=== PATIENT | female | born 1945 | race Caucasian/White ===

== ENCOUNTER 2020-01-27 08:32 | Outpatient (REF) | payer MEDICARE, SELFPAY ==
[2020-01-27 11:20] LABS: MANUAL DIFF FLAG NO
[2020-01-27 11:31] LABS: Basophils Percent Auto 0.4 % (0-2); Eosinophils Absolute Auto 0.2 X10*3/uL (0.0-0.4); Eosinophils Percent Auto 2.4 % (0-4); Hematocrit 48.4 % (37-47); Hemoglobin 15.9 g/dl (12.0-16.0); Imm Gran Abs Auto 0.03 X10*3/uL (0.00-0.03); Imm Gran Pct Auto 0.4 % (0.0-0.4); Lymphocytes Absolute Auto 1.9 X10*3/uL (1.2-4.9); Mean Corpuscular HGB Conc 32.9 g/dl (31.0-35.0); Mean Corpuscular Hemoglobin 29.2 pg (27.0-33.0); Mean Platelet Volume 11.3 fL (9.4-12.3); Monocytes Absolute Auto 0.7 X10*3/uL (0.1-1.2); Monocytes Percent Auto 7.8 % (2-11); Neutrophils Absolute Auto 5.5 X10*3/uL (2.0-8.3); Platelet Count 231 X10*3/uL (160-400); Red Blood Count 5.44 X10*6/uL (4.20-5.50); Red Cell Distribution Width 13.5 % (11.0-16.0); White Blood Count 8.4 X10*3/uL (4.8-10.8)
[2020-01-27 11:54] LABS: Creatinine Urine 105.43 mg/dL; Microalbum/Creatinine Ratio Ur 38.8 ug/mg cr
[2020-01-27 12:13] LABS: Alanine Aminotransferase 15 U/L (0-31); Albumin Level 4.5 g/dL (3.5-5.0); Alkaline Phosphatase 146 U/L (39-117); Anion Gap 17 (12-20); Aspartate Amino Transferase 13 U/L (5-31); Bilirubin Total 1.1 mg/dL (0.0-1.0); Blood Urea Nitrogen 15 mg/dL (9-16); Calcium 8.9 mg/dL (8.4-10.2); Carbon Dioxide 24 mmol/L (22-29); Chloride 104 mmol/L (96-108); Cholesterol 164 mg/dL; Estimated Glomerular Filt Rate > 60; Glucose Fasting 131 mg/dL (60-99); HDL Cholesterol 47 mg/dL; LDL Cholesterol Calculated 89 mg/dl; Potassium 3.4 mmol/l (3.3-5.1); Sodium 142 mmol/L (135-145); Total Protein 7.1 g/dL (6.5-8.0); Triglycerides 142 mg/dL
[2020-01-27 12:17] LABS: T4 Thyroxine 7.8 ug/dL (4.5-12.0); Thyroid Stimulating Hormone 2.66 uIU/mL (0.32-4.0); Vitamin D 25-OH Total 41.7 ng/mL (>30)
[2020-01-27 12:33] LABS: Folate 13.7 ng/mL (> or = 4.0); Vitamin B12 1062 pg/mL (200-900)
== END 2020-01-27 08:33 | disposition home or self-care (01) ==
LOC: HO.HMGCLDS 08:32
PROVIDERS: PCP Internal Medicine; Visit Provider Internal Medicine
DX: E11.65 Type 2 diabetes mellitus with hyperglycemia (principal); I10 Essential (primary) hypertension; E78.00 Pure hypercholesterolemia, unspecified; G47.33 Obstructive sleep apnea (adult) (pediatric); I48.91 Unspecified atrial fibrillation
CPT/HCPCS: 36415; 80053; 80061; 82043; 82306; 82607; 82746; 84436; 84443; 85025

== ENCOUNTER 2020-07-06 07:46 | Outpatient (REF) | payer MEDICARE, SELFPAY ==
[2020-07-06 11:52] LABS: Estimated Average Glucose 126 mg/dL
[2020-07-06 12:39] LABS: Alanine Aminotransferase 14 U/L (0-31); Albumin Level 4.6 g/dL (3.5-5.0); Alkaline Phosphatase 139 U/L (39-117); Anion Gap 16 (12-20); Aspartate Amino Transferase 13 U/L (5-31); Bilirubin Total 0.8 mg/dL (0.0-1.0); Blood Urea Nitrogen 17 mg/dL (9-16); Calcium 9.5 mg/dL (8.4-10.2); Carbon Dioxide 26 mmol/L (22-29); Chloride 106 mmol/L (96-108); Cholesterol 162 mg/dL; Estimated Glomerular Filt Rate > 60; Glucose Random 124 mg/dL (60-115); HDL Cholesterol 46 mg/dL; LDL Cholesterol Calculated 85 mg/dl; Potassium 3.7 mmol/L (3.3-5.1); Sodium 144 mmol/L (135-145); Total Protein 7.1 g/dL (6.5-8.0); Triglycerides 156 mg/dL
== END 2020-07-06 07:47 | disposition home or self-care (01) ==
LOC: HO.HMGCLDS 07:46
PROVIDERS: PCP Internal Medicine; Visit Provider Internal Medicine
DX: E11.65 Type 2 diabetes mellitus with hyperglycemia (principal); E78.00 Pure hypercholesterolemia, unspecified
CPT/HCPCS: 36415; 80053; 80061; 83036

== ENCOUNTER 2020-11-14 11:56 | Outpatient (REF) | payer MEDICARE, SELFPAY ==
--- NOTE | ~2020-11-14 | MM_ITS ---
EXAMINATION: BONE DENSITOMETRY CLINICAL INDICATION: Menopause. COMPARISON: Previous BD dated 09/06/2015 and baseline BD dated 10/08/2007. TECHNIQUE: Using a [employer] DXA System (software version: 13.1) manufactured by [employer], dual-energy x-ray absorptiometry was performed of the lumbar spine and left hip. The images are of good technical quality. Summary results are attached. FINDINGS: AP SPINE L1-L4 (excluding L3): The data of L1-L4 has been changed to exclude the L3 vertebral body, because degenerative change at this level may cause overestimation of lumbar spine density. Current: BMD 1.469 g/cm2, Z-score 3.6, T-score 2.5, normal, 5.4% increase from previous, 3.5% increase from baseline (<5% change is not significant). Prior: BMD 1.394 g/cm2. Baseline: BMD 1.420 g/cm2. LEFT FEMUR, NECK: Current: BMD 0.905 g/cm2, Z-score 0.6, T-score -1.0, normal. Prior: BMD 0.985 g/cm2. Baseline: BMD 0.984 g/cm2. LEFT FEMUR, TOTAL: Current: BMD 1.088 g/cm2, Z-score 2.0, T-score 0.6, normal, 1.6% decrease from previous, 6.6% decrease from baseline (<5% change is not significant). Prior: BMD 1.106 g/cm2. Baseline: BMD 1.165 g/cm2. IDENTIFIED RISK FACTORS: Menopause, history of fracture (adult). HISTORY OF FRACTURE: Ankle. MEDICATIONS: Vitamin D. MM/XR DEXA axial skeleton IMPRESSION: 1. DIAGNOSIS: Normal bone density based on the lowest T-score value of -1.0 in the femoral neck applying World Health Organization criteria. 2. 10-YEAR FRACTURE RISK PREDICTION, FRAX: According to the guidelines, FRAX calculation should only be performed on patients in the osteopenia bone density category. Therefore, FRAX was not performed on this patient. 3. Treatment Recommendations: NOF guidelines recommend consideration for treatment in postmenopausal women and men age 50 and older presenting with the following: -A hip or vertebral (clinical or morphometric) fracture. -T-score less than or equal to -2.5 at the femoral neck or spine after appropriate evaluation to exclude secondary causes. -Low bone mass at the hip or spine and a 10-year fracture probability by FRAX of greater than or equal to 3% for hip fracture or greater than or equal to 20% for major osteoporotic fracture based on the [place] adapted WHO algorithm. 4. Other Recommendations: All treatment decisions require clinical judgment and consideration of individual patient factors, including patient preferences, comorbidities, previous drug use, risk factors not captured in the FRAX model (e.g. frailty, falls, vitamin D deficiency, increased bone turnover, interval significant decline in bone density) and possible under or overestimation of fracture risk by FRAX. FUTURE SCAN RECOMMENDATION: People with diagnosed cases of osteoporosis or at high risk for fracture should have regular bone mineral density tests. For patients eligible for Medicare, routine testing is allowed once every 2 years. The testing frequency can be increased to one year for patients who have rapidly progressing disease, those who are receiving or discontinuing medical therapy to restore bone mass, or have additional risk factors.
--- NOTE | ~2020-11-14 | MM_ITS ---
EXAMINATION: MM SCREENING DIGITAL BREAST TOMOSYNTHESIS, BILATERAL CLINICAL INFORMATION: Screening. Asymptomatic. The lifetime risk of breast cancer based on the Tyrer-Cuzick Model is 4%. COMPARISON: Mammography: 11/09/2019, 11/03/2018, 10/27/2017 TECHNIQUE: Digital breast tomosynthesis is performed in both the craniocaudal and mediolateral oblique views along with computer-aided detection (CAD). Synthesized 2D images are generated from the tomosynthesis. FINDINGS: There are scattered areas of fibroglandular density (ACR BI-RADS breast composition Category b). There is fine fibronodular parenchymal pattern similar to prior exams. No developing density or interval mass or architectural abnormality. Again, there are bilateral round and coarse calcifications, some stable groups upper outer left similar to prior exam. There is biopsy clip marker again noted right breast mid 12:30 o'clock position. The axilla and skin contours are unremarkable. No significant changes. MM/MM tomosynthesis screening BI IMPRESSION: There are no significant changes from prior study. ASSESSMENT: BI-RADS 2: Benign RECOMMENDATION: Routine annual mammography screening. This patient's information was entered into a reminder system with a target due date for their next mammogram.
== END 2020-11-14 11:57 | disposition home or self-care (01) ==
LOC: HO.MAMMO 11:56
PROVIDERS: Visit Provider Internal Medicine
DX: Z12.31 Encounter for screening mammogram for malignant neoplasm of breast (principal); Z13.820 Encounter for screening for osteoporosis; Z78.0 Asymptomatic menopausal state; Z87.81 Personal history of (healed) traumatic fracture; Z79.899 Other long term (current) drug therapy
CPT/HCPCS: 77063; 77067; 77080

== ENCOUNTER 2021-06-21 09:01 | Outpatient (REF) | payer MEDICARE, SELFPAY ==
[2021-06-21 11:08] LABS: MANUAL DIFF FLAG NO
[2021-06-21 11:18] LABS: Basophils Percent Auto 0.4 % (0-2); Eosinophils Absolute Auto 0.3 X10*3/uL (0.0-0.4); Eosinophils Percent Auto 3.8 % (0-4); Hematocrit 46.6 % (37.0-47.0); Hemoglobin 15.4 g/dl (12.0-16.0); Imm Gran Abs Auto 0.02 X10*3/uL (0.00-0.03); Imm Gran Pct Auto 0.2 % (0.0-0.4); Lymphocytes Absolute Auto 2.1 X10*3/uL (1.2-4.9); Lymphocytes Percent Auto 24.4 % (20-40); Mean Corpuscular Hemoglobin 29.5 pg (27.0-33.0); Mean Corpuscular Volume 89.3 fL (80.0-98.0); Mean Platelet Volume 11.4 fL (9.4-12.3); Monocytes Absolute Auto 0.7 X10*3/uL (0.1-1.2); Neutrophils Absolute Auto 5.3 x10*3/uL (2.0-8.3); Neutrophils Percent Auto 63.2 % (45-73); Platelet Count 218 X10*3/uL (160-400); Red Blood Count 5.22 X10*6/uL (4.20-5.50); Red Cell Distribution Width 13.3 % (11.0-16.0); White Blood Count 8.5 X10*3/uL (4.8-10.8)
[2021-06-21 11:31] LABS: Alanine Aminotransferase 13 U/L (0-31); Albumin Level 4.3 g/dL (3.5-5.0); Alkaline Phosphatase 141 U/L (39-117); Anion Gap 13 (12-20); Aspartate Amino Transferase 13 U/L (5-31); Blood Urea Nitrogen 16 mg/dL (9-16); Calcium 9.2 mg/dL (8.4-10.2); Carbon Dioxide 26 mmol/L (22-29); Chloride 108 mmol/L (96-108); Cholesterol 145 mg/dL; Estimated Glomerular Filt Rate > 60; Glucose Random 129 mg/dL (60-115); HDL Cholesterol 47 mg/dL; LDL Cholesterol Calculated 81 mg/dl; Potassium 3.6 mmol/L (3.3-5.1); Sodium 143 mmol/L (135-145); Total Protein 6.8 g/dL (6.5-8.0); Triglycerides 88 mg/dL
[2021-06-21 11:32] LABS: Estimated Average Glucose 126 mg/dL
[2021-06-21 11:56] LABS: B Type Natriuretic Peptide 168 pg/mL (<100)
[2021-06-21 11:58] LABS: Free T4 (Free Thyroxine) 1.02 ng/dL (0.71-1.85); Thyroid Stimulating Hormone 2.48 uIU/mL (0.32-4.0); Vitamin D 25-OH Total 43.2 ng/mL (>30)
[2021-06-21 11:59] LABS: Folate 15.1 ng/mL (> or = 4.0); Vitamin B12 996 pg/mL (200-900)
[2021-06-21 12:15] LABS: Creatinine Urine 65.55 mg/dL
== END 2021-06-21 09:02 | disposition home or self-care (01) ==
LOC: HO.HMGCLDS 09:01
PROVIDERS: PCP Internal Medicine; Visit Provider Internal Medicine
DX: I10 Essential (primary) hypertension (principal); I48.0 Paroxysmal atrial fibrillation; E11.65 Type 2 diabetes mellitus with hyperglycemia; E78.00 Pure hypercholesterolemia, unspecified
CPT/HCPCS: 36415; 80053; 80061; 82043; 82306; 82607; 82746; 83036; 83880; 84439; 84443; 85025

== ENCOUNTER 2021-10-11 08:56 | Outpatient (REF) | payer MEDICARE, SELFPAY ==
[2021-10-11 12:24] LABS: Alanine Aminotransferase 15 U/L (0-31); Albumin Level 4.5 g/dL (3.5-5.0); Alkaline Phosphatase 148 U/L (39-117); Anion Gap 15 (12-20); Aspartate Amino Transferase 14 U/L (5-31); Bilirubin Total 1.1 mg/dL (0.0-1.0); Blood Urea Nitrogen 15 mg/dL (9-16); Calcium 9.4 mg/dL (8.4-10.2); Carbon Dioxide 26 mmol/L (22-29); Chloride 106 mmol/L (96-108); Cholesterol 141 mg/dL; Estimated Glomerular Filt Rate > 60; Glucose Random 134 mg/dL (60-115); HDL Cholesterol 47 mg/dL; LDL Cholesterol Calculated 76 mg/dl; Potassium 3.7 mmol/L (3.3-5.1); Sodium 143 mmol/L (135-145); Triglycerides 94 mg/dL
== END 2021-10-11 08:57 | disposition home or self-care (01) ==
LOC: HO.HMGCLDS 08:56
PROVIDERS: PCP Internal Medicine; Visit Provider Internal Medicine
DX: E78.00 Pure hypercholesterolemia, unspecified (principal)
CPT/HCPCS: 36415; 80053; 80061

== ENCOUNTER 2021-11-20 11:40 | Outpatient (REF) | payer MEDICARE, SELFPAY ==
--- NOTE | ~2021-11-20 | MM_ITS ---
EXAMINATION: MM SCREENING DIGITAL BREAST TOMOSYNTHESIS, BILATERAL CLINICAL INFORMATION: Screening. Asymptomatic. The lifetime risk of breast cancer based on the Tyrer-Cuzick Model is 4%. COMPARISON: Mammography: 11/14/2020, 11/27/2019, 11/03/2018 TECHNIQUE: Digital breast tomosynthesis is performed in both the craniocaudal and mediolateral oblique views along with computer-aided detection (CAD). Synthesized 2D images are generated from the tomosynthesis. FINDINGS: There are scattered areas of fibroglandular density (ACR BI-RADS breast composition Category b). There is fine fibronodular parenchymal pattern. No developing density or interval mass or architectural abnormality. The axilla and skin contours are unremarkable. Right breast has scattered isolated and small grouped stable calcifications. Again, there is biopsy clip marker central 12:30 o'clock position mid depth. Left breast has grouped coarse calcifications mid 12:30 position and mid upper outer quadrant, increased from prior exams. Patient will be recalled in order to fully characterize with additional magnification views. MM/MM tomosynthesis screening BI IMPRESSION: Left: -Increased calcifications mid 12:30 o'clock and mid upper outer quadrant. Right: -No mammographic evidence of malignancy. ASSESSMENT: BI-RADS 0: Incomplete - Need Additional Imaging Evaluation RECOMMENDATION: 1. Additional views of the left breast (magnification CC, magnification ML). 2. Radiology department staff will contact the patient for additional imaging. This patient's information was entered into a reminder system with a target due date for their next mammogram.
== END 2021-11-20 11:41 | disposition home or self-care (01) ==
LOC: HO.MAMMO 11:40
PROVIDERS: PCP Internal Medicine; Visit Provider Internal Medicine
DX: Z12.31 Encounter for screening mammogram for malignant neoplasm of breast (principal)
CPT/HCPCS: 77063; 77067

== ENCOUNTER 2021-11-28 08:38 | Outpatient (REF) | payer MEDICARE, SELFPAY ==
--- NOTE | ~2021-11-28 | MM_ITS ---
EXAMINATION: MM DIAGNOSTIC DIGITAL MAMMOGRAPHY, LEFT CLINICAL INFORMATION: Recall from screening for calcifications mid 12:30 o'clock and mid upper outer quadrant left breast. COMPARISON: Mammography: 11/20/2021, 11/14/2020, 11/09/2019, 11/03/2018. TECHNIQUE: Digital mammography is performed in the following views: Magnification CC x2, magnification ML. FINDINGS: There are scattered areas of fibroglandular density (ACR BI-RADS breast composition Category b). The additional magnification views demonstrate similar appearing groups of relatively coarse calcifications in the upper outer left breast. These may represent fibroadenomatous calcifications. Management plan is for short interval follow-up in 6 months to include magnification views. Results are discussed with the patient at time of visit. MM/MM added views LT IMPRESSION: Several groups of relatively coarse calcifications upper outer left breast, possibly benign fibroadenomatous calcifications. ASSESSMENT: BI-RADS 3: Probably Benign RECOMMENDATION: Diagnostic left mammography in 6 months. This patient's information was entered into a reminder system with a target due date for their next mammogram.
== END 2021-11-28 08:39 | disposition home or self-care (01) ==
LOC: HO.MAMMO 08:38
PROVIDERS: PCP Internal Medicine; Visit Provider Internal Medicine
DX: R92.1 Mammographic calcification found on diagnostic imaging of breast (principal)
CPT/HCPCS: 77065

== ENCOUNTER 2022-02-14 11:32 | Emergency (ER) | payer MEDICARE, SELFPAY ==
--- NOTE | ~2022-02-14 | US_ITS ---
EXAMINATION: US PELVIS CLINICAL INFORMATION: 76-year-old female with history of vaginal bleeding with clots. COMPARISON: None TECHNIQUE: Ultrasound of the pelvis is performed using both transabdominal and transvaginal transducers along with Doppler. Transvaginal imaging is performed due to inadequate visualization transabdominally. UTERUS AND CERVIX The anteflexed, anteverted uterus measures approximately 9.6 x 5 x 6.6 cm ([id number] x AP x transverse dimension). There is extensive cystic change along the cervix, suspicious for endocervical hyperplasia. Largest nabothian cyst of the cervix measures up to 1.2 cm. The endometrium is diffusely heterogeneous, abnormally thickened. The endometrium measures up to approximately 3 cm AP. On the transabdominal images, there appear to be a intramural leiomyoma of the left uterine body, estimated size of approximately 3.5 x 2.5 x 2.5 cm ADNEXA: A structure suspected represent the right ovary is 2.1 x 1.2 x 1.6 cm, volume of 2.1 mL and left ovary 1.7 x 1.3 x 1.7 cm, volume of 1.9 mL. No adnexal mass. FREE FLUID: None detected. US/US pelvic and transvaginal IMPRESSION: Prominent cystic changes along the cervix are suspicious for endometrial hyperplasia. The endometrium is diffusely thickened and heterogeneous. Differential diagnostic considerations include endometrial carcinoma or clustered endometrial polyps. This does not appear to represent an intracavitary leiomyoma. However, there does appear to be a left-sided intramural leiomyoma. If clinically necessary, further evaluation may be performed with pelvic MRI without and with use of intravenous gadolinium contrast.
--- NOTE | 2022-02-14 11:34 | ED.FEMALEGU ---
HPI - Female Genitourinary General Chief complaint: Vaginal Bleeding <HERMINIA Eduardo - Last Filed: 02/14/22 11:40> Stated complaint: Vag Bleed <HERMINIA Eduardo - Last Filed: 02/14/22 11:40> Time Seen by Provider: 02/14/22 11:50 <HERMINIA Eduardo - Last Filed: 02/14/22 11:40> Source: patient <Yudi Koch NP - Last Filed: 02/14/22 16:57> Mode of arrival: ambulatory <Yudi Koch NP - Last Filed: 02/14/22 16:57> Limitations: no limitations <Yudi Koch NP - Last Filed: 02/14/22 16:57> History of Present Illness HPI Narrative: 76-year-old female with a history of AFib, high cholesterol, hypertension, sleep apnea, diabetes presents with complaints of vaginal bleeding since Thursday evening. Patient is on Eliquis. Patient reports Thursday night she developed vaginal bleeding. Yesterday she change her pad 3 times. Today she change her pad 3 times as well. She denies any abdominal pain, nausea, vomiting, fevers, urinary symptoms. Patient has been taking her Eliquis still <Yudi Koch NP - Last Filed: 02/14/22 16:57> Related Data Home medications: Home Medications Medication Instructions Recorded Confirmed cholecalciferol (vitamin D3) 25 25 mcg PO DAILY 03/29/20 02/04/22 mcg (1,000 unit) capsule cyanocobalamin (vitamin B-12) 1,000 mcg PO DAILY 03/29/20 02/04/22 1,000 mcg tablet loratadine 10 mg tablet 10 mg PO DAILY 03/29/20 02/04/22 Previous Rx's Medication Instructions Recorded apixaban 5 mg tablet (Eliquis) 5 mg PO BID #180 tabs 05/13/21 Crestor 10 mg tablet (rosuvastatin) 10 mg PO DAILY 90 days #90 tabs 06/03/21 metoprolol succinate 25 mg 25 mg PO DAILY 90 days #90 tabs 08/09/21 tablet,extended release 24 hr olmesartan 20 mg tablet 20 mg PO DAILY 90 days #90 tabs 08/09/21 diltiazem HCl 180 mg capsule,24 360 mg PO DAILY #180 caps 12/02/21 hr,extended release CPAP #1 ea 02/04/22 <HERMINIA Eduardo - Last Filed: 02/14/22 11:40> Allergies/Adverse reactions: Allergies Allergy/AdvReac Type Severity Reaction Status Date / Time atorvastatin [From Lipitor] Allergy Unknown Unknown Verified 02/14/22 11:39 codeine [CODEINE] Allergy Unknown UNKNOWN Verified 02/14/22 11:39 Iodinated Contrast Media Allergy Unknown MRI Dye- Verified 02/14/22 11:39 unknown morphine [MORPHINE] Allergy Unknown UNKNOWN Verified 02/14/22 11:39 CRAB Allergy Unknown UNKNOWN Uncoded 02/04/22 13:14 <HERMINIA Eduardo - Last Filed: 02/14/22 11:40> Review of Systems Review of Systems: Yes all other systems are reviewed and are negative <Yudi Koch NP - Last Filed: 02/14/22 16:57> Constitutional: Constitutional: Reports no additional constitutional complaints, Denies body ache(s), Denies chills, Denies fever(s), Denies headache(s) and Denies weakness <Yudi Koch NP - Last Filed: 02/14/22 16:57> Eyes: Eyes: Reports no additional eye complaints and Denies change in vision <Yudi Koch NP - Last Filed: 02/14/22 16:57> ENT: Reports system reviewed and no additional complaints, except as documented, Denies dizziness, Denies headache(s), Denies nasal congestion, Denies nasal discharge and Denies neck pain <Yudi Koch NP - Last Filed: 02/14/22 16:57> Cardiovascular: Cardiovascular: Reports no additional cardiovascular complaints, Denies chest pain, Denies leg edema and Denies dyspnea <Yudi Koch NP - Last Filed: 02/14/22 16:57> Respiratory: Respiratory: Reports no additional respiratory complaints, Denies cough and Denies dyspnea <Yudi Koch NP - Last Filed: 02/14/22 16:57> Gastrointestinal: Gastrointestinal: Reports no additional gastrointestinal complaints, Denies abdominal pain, Denies diarrhea, Denies nausea and Denies vomiting <Yudi Koch NP - Last Filed: 02/14/22 16:57> Genitourinary: Genitourinary: Reports no additional female genitourinary complaints, Reports abnormal vaginal bleeding and Denies urinary incontinence <Yudi Koch NP - Last Filed: 02/14/22 16:57> Musculoskeletal: Musculoskeletal: Reports no additional musculoskeletal complaints, Denies back pain, Denies arthralgias, Denies joint swelling, Denies neck pain, Denies numbness and Denies tingling <Yudi Koch NP - Last Filed: 02/14/22 16:57> Integumentary/Breasts: Skin/Breast: Reports system reviewed and no additional complaints, except as docu and Denies rash <Yudi Koch NP - Last Filed: 02/14/22 16:57> Neurologic: Reports system reviewed and no additional complaints, except as documented, Denies Abnormal speech present, Denies dizziness, Denies headache(s), Denies numbness, Denies tingling and Denies weakness <Yudi Koch NP - Last Filed: 02/14/22 16:57> PMF Past Medical History Attestation statement: The following information was validated with the patient. <Yudi Koch NP - Last Filed: 02/14/22 16:57> Source: old records reviewed and nursing notes reviewed <Yudi Koch NP - Last Filed: 02/14/22 16:57> Medical History: Medical History Atrial fibrillation Cataracts, bilateral Coronary artery disease Hiatal hernia Hypercholesterolemia Hypertension Left elbow fracture Obesity (BMI 30-39.9) Obstructive sleep apnea Post-menopausal Type 2 diabetes mellitus with diabetic neuropathic arthropathy Type 2 diabetes mellitus with hyperglycemia Vitamin D deficiency <HERMINIA Eduardo - Last Filed: 02/14/22 11:40> Surgical History: Surgical History History of cataract surgery <HERMINIA Eduardo - Last Filed: 02/14/22 11:40> Family History Family History: Family History Father CVD (cardiovascular disease) Myocardial infarction Mother No problems noted. Maternal Aunt Breast cancer Skin cancer Brother No problems noted. Sister No problems noted. Son No problems noted. Son No problems noted. <HERMINIA Eduardo - Last Filed: 02/14/22 11:40> Social History Social History: Social History Housing: House Alcohol intake: never Patient Tobacco Use Status: Never used Tobacco Smoked in Last 30 Days: No e-Cigarette/Vaping Use: Never Used Second Hand Smoke Exposure: No Use of substances other than those prescribed or required for medical reasons: No Advance Directives: No Current occupational status: retired Cognitive needs: No Hearing needs: No Vision needs: Yes <HERMINIA Eduardo - Last Filed: 02/14/22 11:40> Physical Exam Vital Signs: Vital Signs: Last Vital Signs Temp 98.3 F 02/14/22 15:26 Pulse 84 02/14/22 15:26 Resp 18 02/14/22 15:26 BP 183/67 H 02/14/22 15:26 Pulse Ox 93 02/14/22 15:26 O2 Del Method 02/14/22 15:26 BMI result Body Mass Index 34.7 <HERMINIA Eduardo - Last Filed: 02/14/22 11:40> Vital Signs: Last Vital Signs Temp 98.3 F 02/14/22 15:26 Pulse 84 02/14/22 15:26 Resp 18 02/14/22 15:26 BP 183/67 H 02/14/22 15:26 Pulse Ox 93 02/14/22 15:26 O2 Del Method 02/14/22 15:26 BMI result Body Mass Index 34.7 <Yudi Koch NP - Last Filed: 02/14/22 16:57> Const: General: cooperative, healthy appearing, comfortable and no acute distress <Yudi Koch NP - Last Filed: 02/14/22 16:57> Orientation/consciousness: patient oriented x3 <Yudi Koch NP - Last Filed: 02/14/22 16:57> Limitations: no limitations <Yudi Koch CHIEF NURSE EXECUTIVE - Last Filed: 02/14/22 16:57> HEENT: Head: Yes normal to inspection <Yudi Koch NP - Last Filed: 02/14/22 16:57> Ears: hearing grossly normal bilaterally <Yudi Koch CHIEF NURSE EXECUTIVE - Last Filed: 02/14/22 16:57> General nose exam: Normal external nose present <Yudi Koch NP - Last Filed: 02/14/22 16:57> Face and sinus: Yes normal facial exam <Yudi Koch CHIEF NURSE EXECUTIVE - Last Filed: 02/14/22 16:57> Mouth: Normal oral and palatal mucosa present <Yudi Koch NP - Last Filed: 02/14/22 16:57> Throat: Yes posterior oropharynx normal <Yudi Koch NP - Last Filed: 02/14/22 16:57> Eyes: General: appearance normal, both eyes and all related structures <Yudi Koch CHIEF NURSE EXECUTIVE - Last Filed: 02/14/22 16:57> Pupils: Equal, round and reactive pupils present <Yudi Koch NP - Last Filed: 02/14/22 16:57> Neck: Neck: Yes normal visual inspection <Yudi Koch NP - Last Filed: 02/14/22 16:57> Chest: Chest palpation & inspection: normal inspection of the chest <Yudi Koch NP - Last Filed: 02/14/22 16:57> Resp: Effort & Inspection: normal respiratory effort <Yudi Koch NP - Last Filed: 02/14/22 16:57> Auscultation: clear to auscultation bilaterally <Yudi Koch NP - Last Filed: 02/14/22 16:57> Cardio: Rate: tachycardic <Yudi Koch NP - Last Filed: 02/14/22 16:57> Rhythm: abnormal rhythm irregularly irregular <Yudi Koch NP - Last Filed: 02/14/22 16:57> Peripheral pulses: Peripheral pulses 2+ throughout <Yudi Koch NP - Last Filed: 02/14/22 16:57> GI: Inspection: Yes normal to inspection <Yudi Koch NP - Last Filed: 02/14/22 16:57> Palpation (GI): Soft to palpation and nontender <Yudi Koch NP - Last Filed: 02/14/22 16:57> Auscultation: normal bowel sounds <Yudi Koch NP - Last Filed: 02/14/22 16:57> : Other: There is bleeding noted in the vaginal canal a small amount. No clots. Unable to visualize the cervix <Yudi Koch NP - Last Filed: 02/14/22 16:57> Speculum Exam - Vagina: normal palpation <Yudi Koch NP - Last Filed: 02/14/22 16:57> Speculum Exam - Cervix: normal palpation <Yudi Koch NP - Last Filed: 02/14/22 16:57> Bimanual exam- vagina & uterus: normal bimanual exam, normal palpation and normal palpation <Yudi Koch NP - Last Filed: 02/14/22 16:57> Bimanual Exam- Adnexa, other: normal adnexae and no tenderness <Yudi Koch NP - Last Filed: 02/14/22 16:57> Back/Spine/Pelvis: Thoracic/Lumbar Spine: thoracic and lumbar spine normal to inspection <Yudi Koch NP - Last Filed: 02/14/22 16:57> Skin: General skin exam: no rashes or lesions noted <Yudi Koch NP - Last Filed: 02/14/22 16:57> Neuro: General: patient oriented x3, no focal motor deficits and normal sensation to monofilament <Yudi Koch NP - Last Filed: 02/14/22 16:57> Cranial nerves: Yes Equal, round and reactive pupils present <Yudi Koch NP - Last Filed: 02/14/22 16:57> Cognition (Neuro): normal cognition <Yudi Koch NP - Last Filed: 02/14/22 16:57> Speech: No Abnormal speech present <Yudi Koch NP - Last Filed: 02/14/22 16:57> Gait exam (Neuro): Normal gait present <Yudi Koch NP - Last Filed: 02/14/22 16:57> Motor exam (neuro): 5/5 motor strength present throughout <Yudi Koch NP - Last Filed: 02/14/22 16:57> Extrem: General: Yes normal to inspection, Yes no pedal edema and Yes no calf tenderness <Yudi Koch NP - Last Filed: 02/14/22 16:57> Course Course Course Narrative: RME--76yo F with PMHx A.fib on Eliquis, hernia, HLD, HTN, SHANNAN, DM, c/o painless vaginal bleeding with clots since Thursday morning. Admits to filling 3 pads today. Denies abd pain, lightheadedness, dizziness, fatigue, CP/SOB Took her Eliquis today. Tachycardic in triage EKG, labs, UA, Type and screen, pelvic US ordered in triage <HERMINIA Eduardo - Last Filed: 02/14/22 11:40> Reevaluation(s) Reevaluation #1: Orthostatics are negative. Pelvic ultrasound is concerning for endometrial malignancy. Initial hemoglobin 15.4, hematocrit 47. Serial pelvic exams with small amount of bleeding. Will repeat CBC. Likely endometrial malignancy which will require outpatient endometrial biopsy. Consider holding Eliquis due to bleeding <Yudi Koch NP - Last Filed: 02/14/22 16:57> Reevaluation #2: Repeat CBC is unchanged. Unfortunately we do not have gynecology on-call today. I did recommend patient follow-up outpatient with them in the office. She should hold her Eliquis until she has her endometrial biopsy. We did discuss the risks and benefits of holding anticoagulation in the setting of AFib. At this point I believe she has higher risk with bleeding. Patient is in agreement with this. We did review worrisome signs and symptoms when she should return to the emergency room. Comfortable plan for discharge home. <Yudi Koch NP - Last Filed: 02/14/22 16:57> Medical Decision Making Medical Decision Making MDM Narrative: 76-year-old female with a history of AFib on Eliquis presents with vaginal bleeding for the last 48 hours. Patient denies any history of postmenopausal bleeding. She has not had her menses in many years. She has still been taking her Eliquis. Triage patient noted to be tachycardic with heart rate 140. Blood pressure is stable. Will check labs, UA, pelvic ultrasound, pelvic exam, EKG. <Yudi Koch NP - Last Filed: 02/14/22 16:57> Differential Diagnoses: Differential diagnosis (Endometrial malignancy, dysfunctional uterine bleeding,) <Yudi Koch NP - Last Filed: 02/14/22 16:57> Lab Attestation: I reviewed the patient's lab results. <Yudi Koch NP - Last Filed: 02/14/22 16:57> Independent interpretation of EKG, rhythm strip, radiology study: Independent interp EKG,rhythm strip, radiology study (AFib with RVR with rate of 135) I performed an independent interpretation of the: EKG and Ultrasound (Prominent cystic changes along the cervix are suspicious for endometrial hyperplasia with consideration of endometrial carcinoma) My interpretation is <Yudi Koch NP - Last Filed: 02/14/22 16:57> Discussion of test interpretation with radiology: Discussion of test interpretation with radiology (Reviewed findings on pelvic ultrasound) <Yudi Koch NP - Last Filed: 02/14/22 16:57> Chronic conditions affecting care (e.g., diabetes, HTN): Chronic conditions affecting care (e.g., diabetes, HTN) (AFib) <Yudi Koch NP - Last Filed: 02/14/22 16:57> Discharge Plan Discharge Clinical Impression: Vaginal bleeding <HERMINIA Eduardo - Last Filed: 02/14/22 11:40> Patient Disposition: Home, Self-Care <HERMINIA Eduardo - Last Filed: 02/14/22 11:40> Instructions: Menorrhagia (ED) <HERMINIA Eduardo - Last Filed: 02/14/22 11:40> Additional Instructions: Hold your Eliquis until you are able to have an endometrial biopsy. Return for increased in bleeding more than 1 pad an 1 hour, feeling lightheaded or dizzy, abdominal pain <HERMINIA Eduardo - Last Filed: 02/14/22 11:40> Prescriptions: No Action Eliquis 5 mg tablet 5 mg PO BID Qty: 180 3RF rosuvastatin [Crestor] 10 mg tablet 10 mg PO DAILY 90 Days Qty: 90 3RF Rx Instructions: NO SUBSTITUTION ABOVE metoprolol succinate 25 mg tablet extended release 24 hr 25 mg PO DAILY 90 Days Qty: 90 3RF olmesartan 20 mg tablet 20 mg PO DAILY 90 Days Qty: 90 3RF diltiazem HCl 180 mg capsule,extended release 24 hr 360 mg PO DAILY Qty: 180 3RF (DME) CPAP NASAL MASK MEDIUM 7 cm H20 humidified AIR See Rx Instructions .Route .MEDSUPPLY Qty: 1 0RF Rx Instructions: As directed loratadine 10 mg tablet 10 mg PO DAILY cholecalciferol (vitamin D3) 25 mcg (1,000 unit) capsule 25 mcg PO DAILY cyanocobalamin (vitamin B-12) 1,000 mcg tablet 1,000 mcg PO DAILY <HERMINIA Eduardo - Last Filed: 02/14/22 11:40> Referrals: Pio Georges MD [Physician] - 5 days <HERMINIA Eduardo - Last Filed: 02/14/22 11:40> Interventions: ED Discharge Assessment Last Done: 02/14/22 16:46 <HERMINIA Eduardo - Last Filed: 02/14/22 11:40> Discharge Date/Time: 02/14/22 16:51 <HERMINIA Eduardo - Last Filed: 02/14/22 11:40>
[2022-02-14 11:35] VITALS: BP 180/89; PULSE 142; RESP 16; TEMP 36.8; O2SAT 96; BMI 34.7
--- NOTE | 2022-02-14 11:37 | ECG_ITS ---
Test Reason : VAG BLEEDING Blood Pressure : / mmHG Vent. Rate : 135 BPM Atrial Rate : 000 BPM P-R Int : 000 ms QRS Dur : 082 ms QT Int : 260 ms P-R-T Axes : 000 048 233 degrees QTc Int : 390 ms Atrial fibrillation with rapid ventricular response Low voltage QRS Septal infarct , age undetermined ST & T wave abnormality, consider lateral ischemia Abnormal ECG When compared with ECG of 09-DEC-2014 07:09, Atrial fibrillation has replaced Atrial flutter Referred By: eCle Ding Electronically Signed By:YEN BONILLA MD
[2022-02-14 11:58] VITALS: BP 187/91; PULSE 96
[2022-02-14 13:12] LABS: MANUAL DIFF FLAG NO
[2022-02-14 13:15] LABS: Basophils Percent Auto 0.2 % (0-2); Eosinophils Absolute Auto 0.1 X10*3/uL (0.0-0.4); Eosinophils Percent Auto 0.6 % (0-4); Hematocrit 47.4 % (37.0-47.0); Hemoglobin 15.9 g/dl (12.0-16.0); Imm Gran Abs Auto 0.03 X10*3/uL (0.00-0.03); Imm Gran Pct Auto 0.4 % (0.0-0.4); Lymphocytes Percent Auto 12.4 % (20-40); Mean Corpuscular HGB Conc 33.5 g/dl (31.0-35.0); Mean Corpuscular Hemoglobin 29.4 pg (27.0-33.0); Mean Corpuscular Volume 87.8 fL (80.0-98.0); Mean Platelet Volume 10.4 fL (9.4-12.3); Monocytes Absolute Auto 0.5 X10*3/uL (0.1-1.2); Neutrophils Absolute Auto 6.7 x10*3/uL (2.0-8.3); Neutrophils Percent Auto 80.4 % (45-73); Platelet Count 205 X10*3/uL (160-400); Red Cell Distribution Width 13.3 % (11.0-16.0); White Blood Count 8.4 X10*3/uL (4.8-10.8)
[2022-02-14 13:18] LABS: INTERNATIONAL NORM RATIO 1.6 (0.9-1.1); Prothrombin Time 18.5 SEC (10.0-13.1)
[2022-02-14 13:32] LABS: Alanine Aminotransferase 14 U/L (0-31); Albumin Level 4.4 g/dL (3.5-5.0); Alkaline Phosphatase 139 U/L (39-117); Anion Gap 13 (12-20); Aspartate Amino Transferase 14 U/L (5-31); Bilirubin Direct 0.3 mg/dL (0.0-0.5); Bilirubin Total 0.8 mg/dL (0.0-1.0); Blood Urea Nitrogen 13 mg/dL (9-16); Calcium 9.5 mg/dL (8.4-10.2); Carbon Dioxide 27 mmol/L (22-29); Chloride 107 mmol/L (96-108); Creatinine Clr Calc Pharmacy 47.1; Estimated Glomerular Filt Rate 58; Glucose Random 162 mg/dL (60-115); Lipase 20 U/L (8-78); Magnesium 1.9 mg/dL (1.6-2.6); Sodium 143 mmol/L (135-145); Total Protein 6.8 g/dL (6.5-8.0)
[2022-02-14 13:33] VITALS: BP 191/104; PULSE 98
[2022-02-14 13:35] VITALS: BP 163/93; PULSE 78
[2022-02-14 13:47] LABS: Appearance Urine Cloudy; Color Urine RED; Glucose Urine UA Negative (Negative); PH 6.5 (5.0-9.0); UMIC TRIGGER UACC YES; Urine Blood Large (3+) (Negative); Urine Ketones Trace mg/dL (Negative); Urine Protein 100 (2+) mg/dL (Neg-Trace)
[2022-02-14 13:56] LABS: Bacteria Urine None Seen (None Seen); RBC Urine >20 /HPF (0-2); Squamous Epithelial Cell Urine 0-2 /HPF (0-2); WBC Urine 0-5 /HPF (0-5)
[2022-02-14 13:57] LABS: Hyaline Casts Urine 0-2 /LPF (0-2)
[2022-02-14 15:26] VITALS: BP 183/67; PULSE 84; RESP 18; TEMP 36.8; O2SAT 93
--- NOTE | 2022-02-14 15:26 | PC.NURSE ---
report received from MORIAH Hedrick pt is alert and oriented resting in bed no signs of acute distress notice breathing equally unlabored pt stated that she just went to the bathroom and didn't notice any bleeding, provider made aware
[2022-02-14 16:14] LABS: MANUAL DIFF FLAG NO
[2022-02-14 16:15] LABS: Basophils Percent Auto 0.4 % (0-2); Eosinophils Absolute Auto 0.1 X10*3/uL (0.0-0.4); Eosinophils Percent Auto 0.6 % (0-4); Hemoglobin 15.8 g/dl (12.0-16.0); Imm Gran Abs Auto 0.03 X10*3/uL (0.00-0.03); Imm Gran Pct Auto 0.4 % (0.0-0.4); Lymphocytes Absolute Auto 1.4 X10*3/uL (1.2-4.9); Lymphocytes Percent Auto 16.8 % (20-40); Mean Corpuscular HGB Conc 33.6 g/dl (31.0-35.0); Mean Corpuscular Hemoglobin 29.4 pg (27.0-33.0); Mean Corpuscular Volume 87.4 fL (80.0-98.0); Mean Platelet Volume 10.1 fL (9.4-12.3); Monocytes Absolute Auto 0.6 X10*3/uL (0.1-1.2); Monocytes Percent Auto 6.7 % (2-11); Neutrophils Absolute Auto 6.3 x10*3/uL (2.0-8.3); Neutrophils Percent Auto 75.1 % (45-73); Platelet Count 212 X10*3/uL (160-400); Red Blood Count 5.38 X10*6/uL (4.20-5.50); Red Cell Distribution Width 13.4 % (11.0-16.0); White Blood Count 8.4 X10*3/uL (4.8-10.8)
== END 2022-02-14 16:51 | disposition home or self-care (01) ==
PROVIDERS: Nurse Practitioner Family; Physician Assistant; Emergency Provider Emergency Medicine Emergency Medical Services; PCP Internal Medicine
DX: N93.8 Other specified abnormal uterine and vaginal bleeding (principal); I48.91 Unspecified atrial fibrillation; I10 Essential (primary) hypertension; E11.9 Type 2 diabetes mellitus without complications; Z79.01 Long term (current) use of anticoagulants; Z79.899 Other long term (current) drug therapy; Z79.4 Long term (current) use of insulin
CPT/HCPCS: 36415; 76830; 76856; 80048; 80076; 81001; 83690; 83735; 85025; 85610; 86850; 86900; 86901; 93005; 99284; 99285

== ENCOUNTER 2022-05-29 13:38 | Outpatient (REF) | payer MEDICARE, SELFPAY ==
--- NOTE | ~2022-05-29 | MM_ITS ---
EXAMINATION: MM DIAGNOSTIC DIGITAL BREAST TOMOSYNTHESIS, LEFT CLINICAL INFORMATION: Short interval follow-up probable benign calcifications left breast, possibly fibroadenomatous changes. The lifetime risk of breast cancer based on the Tyrer-Cuzick Model is 4%. COMPARISON: Mammography: 11/28/2021, 914 (BI-RADS 0), 11/14/2020, 11/09/2019, 11/03/2018 TECHNIQUE: Digital breast tomosynthesis is performed in both the craniocaudal and mediolateral oblique views along with computer-aided detection (CAD). Synthesized 2D images are generated from the tomosynthesis. Additional magnification left CC x2 and magnification left ML x2 views are obtained. FINDINGS: There are scattered areas of fibroglandular density (ACR BI-RADS breast composition Category b). Mild fibronodular pattern is similar to prior exams and there is no developing density or interval significant mass or architectural abnormality. The axilla and skin contours are unremarkable. Again, there are scattered round calcifications and grouped coarse calcifications for follow-up central upper and mid upper outer left breast, likely fibroadenomatous change. No significant changes from prior diagnostic exam. Left breast calcifications will be reassessed again at time of annual bilateral mammography, due in 6 months. Results are provided to the patient at time of visit by the technologist. MM/MM tomosynthesis diagnostic LT IMPRESSION: -No mammographic evidence of malignancy. -No significant change in calcifications follow-up, possibly fibroadenomatous changes. ASSESSMENT: BI-RADS 3: Probably Benign RECOMMENDATION: Diagnostic mammography at time of annual bilateral mammography, due in 6 months. This patient's information was entered into a reminder system with a target due date for their next mammogram.
== END 2022-05-29 13:39 | disposition home or self-care (01) ==
LOC: HO.MAMMO 13:38
PROVIDERS: PCP Internal Medicine; Visit Provider Internal Medicine
DX: R92.1 Mammographic calcification found on diagnostic imaging of breast (principal)
CPT/HCPCS: 77061; 77065

== ENCOUNTER 2022-06-05 08:12 | Outpatient (REF) | payer MEDICARE, SELFPAY ==
--- NOTE | 2022-06-05 08:18 | ECG_ITS ---
Test Reason : PREOP Blood Pressure : / mmHG Vent. Rate : 090 BPM Atrial Rate : 000 BPM P-R Int : 000 ms QRS Dur : 082 ms QT Int : 374 ms P-R-T Axes : 000 049 -16 degrees QTc Int : 457 ms Atrial fibrillation with premature ventricular or aberrantly conducted complexes Low voltage QRS Septal infarct (cited on or before 14-FEB-2022) Abnormal ECG When compared with ECG of 14-FEB-2022 12:04, Vent. rate has decreased BY 45 BPM T wave inversion no longer evident in Anterolateral leads Referred By: Yee Boles Electronically Signed By:AALN SHEFFIELD
[2022-06-05 09:32] LABS: Hematocrit 48.6 % (37.0-47.0); Hemoglobin 15.9 g/dl (12.0-16.0); Mean Corpuscular HGB Conc 32.7 g/dl (31.0-35.0); Mean Corpuscular Hemoglobin 29.3 pg (27.0-33.0); Mean Corpuscular Volume 89.7 fL (80.0-98.0); Mean Platelet Volume 10.9 fL (9.4-12.3); Platelet Count 233 X10*3/uL (160-400); Red Blood Count 5.42 X10*6/uL (4.20-5.50); Red Cell Distribution Width 13.3 % (11.0-16.0); White Blood Count 9.4 X10*3/uL (4.8-10.8)
[2022-06-05 09:37] LABS: INTERNATIONAL NORM RATIO 1.6 (0.9-1.1); Prothrombin Time 18.9 SEC (10.0-13.1)
[2022-06-05 10:03] LABS: Estimated Average Glucose 128 mg/dL; Hemoglobin A1c % 6.1 %
[2022-06-05 10:46] LABS: Alanine Aminotransferase 17 U/L (0-31); Albumin Level 4.5 g/dL (3.5-5.0); Alkaline Phosphatase 131 U/L (39-117); Anion Gap 22 (12-20); Aspartate Amino Transferase 18 U/L (5-31); Bilirubin Total 1.1 mg/dL (0.0-1.0); Blood Urea Nitrogen 16 mg/dL (9-16); Calcium 9.7 mg/dL (8.4-10.2); Carbon Dioxide 22 mmol/L (22-29); Chloride 105 mmol/L (96-108); Estimated Glomerular Filt Rate > 60; Glucose Random 156 mg/dL (60-115); Sodium 145 mmol/L (135-145)
[2022-06-05 11:04] LABS: TSH reflex Free T4 2.09 uIU/mL (0.32-4.0)
== END 2022-06-05 08:13 | disposition home or self-care (01) ==
LOC: HO.LAB 08:12
PROVIDERS: PCP Internal Medicine; Visit Provider Nurse Practitioner Family
DX: Z01.818 Encounter for other preprocedural examination (principal); Z13.29 Encounter for screening for other suspected endocrine disorder; Z13.0 Encounter for screening for diseases of the blood and blood-forming organs and certain disorders involving the immune mechanism
CPT/HCPCS: 36415; 80053; 83036; 84443; 85027; 85610; 93005

== ENCOUNTER 2024-01-12 11:08 | Outpatient (AMB) | payer MEDICARE, SELFPAY ==
--- NOTE | 2024-01-12 11:29 | A.OFFVIS_ITS ---
Intake Vital Signs 01/12/24 11:30 Height 5 ft Weight 170 lb BMI 33.2 BP 142/70 H Blood Pressure Location Lt brachial Position Sitting Pulse 87 Pulse Source Pulse Oximeter Pulse Oximetry (%) 95 Oxygen Delivery Method Room Air Intake Visit Reasons: [facility] G0439 Allergies atorvastatin [From Lipitor] Allergy (Unknown, Verified 01/12/24 11:31) Unknown codeine [CODEINE] Allergy (Unknown, Verified 01/12/24 11:31) Unknown Iodinated Contrast Media Allergy (Unknown, Verified 01/12/24 11:31) MRI Dye- unknown morphine [MORPHINE] Allergy (Unknown, Verified 01/12/24 11:31) Unknown crab Allergy (Verified 01/12/24 11:31) Unknown Medication List - Last Reconciled 01/12/24 by Shelia Gill MD alprazolam 0.25 mg PO DAILY apixaban (Eliquis) 5 mg PO BID cholecalciferol (vitamin D3) 25 mcg PO DAILY [CPAP NASAL MASK MEDIUM 7 cm H20 humidified AIRAirsense 11 C-pap machine As directed] Crestor (rosuvastatin) 10 mg PO DAILY 90 days NS cyanocobalamin (vitamin B-12) 1,000 mcg PO DAILY diltiazem HCl ER 360 mg (2 x 180 mg) PO DAILY gabapentin 100 mg PO BEDTIME loratadine 10 mg PO DAILY magnesium glycinate 400 mg PO DAILY metoprolol succinate ER 25 mg PO DAILY 90 days olmesartan 20 mg PO DAILY 90 days ondansetron HCl 8 mg PO Q8H HPI [facility] G0439 HPI Details 78-year-old obese female with diabetes m ellitus controlled hypertension, hypercholesterolemia obstructive sleep apnea atrial fibrillation coronary artery disease and generalized anxiety disorder last seen July 2022. Patient is here for an annual well visit. Patient's Cologuard test positive was March 2022. Patient due for mammogram. Colonoscopy Dr. Diop May 2005 declined and Cologuard negative October 2018 Cologuard positive March 2022 Mammogram October 2017, October diagnostic May 2022 Bone density August normal Ophthalmology, [facility] Gastroenter[facility] Dr. Diop BP high here but good at home [facility] Medical History (Updated 01/12/24 @ 12:09 by Shelia Gill MD) Post-menopausal Left elbow fracture Coronary artery disease Hiatal hernia Cataracts, bilateral Vitamin D deficiency Obesity (BMI 30-39.9) Atrial fibrillation Obstructive sleep apnea Type 2 diabetes mellitus with hyperglycemia Type 2 diabetes mellitus with diabetic neuropathic arthropathy Hypercholesterolemia Hypertension Surgical History (Updated 01/12/24 @ 12:09 by Shelia Gill MD) S/P MARC-BSO History of cataract surgery Family History Father CVD (cardiovascular disease) Myocardial infarction Mother No problems noted. Maternal Aunt Breast cancer Skin cancer Brother No problems noted. Sister No problems noted. Son No problems noted. Son No problems noted. Social History Housing: House Alcohol intake: never Patient Tobacco Use Status: Never used Tobacco e-Cigarette/Vaping Use: Never Used Second Hand Smoke Exposure: No service: No Current occupational status: retired Cognitive needs: No Hearing needs: No Vision needs: Yes Questionnaire Medicare Wellness Checkup [age] What gender do you identify with?: female During the past 4 weeks, how much have you been bothered by emotional problems such as feeling anxious, depressed, irritable, sad or downhearted, and blue?: slightly During the past 4 weeks, has your physical & emotional health limited your social activities with family, friends, neighbors, or groups?: not at all During the past 4 weeks, how much bodily pain have you generally had?: no pain During the past 4 weeks, was someone available to help you if you needed & wanted help?: no, not at all During the past 4 weeks, what was the hardest physical activity you could do for at least 2 minutes?: moderate Can you get to places out of walking distance without help? (For eg., can you travel alone on buses, taxis or drive your car?): Yes Can you go shopping for groceries or clothes without someone's help?: Yes Can you prepare your own meals?: Yes Can you do your housework without help?: Yes Because of any health problems, do you need the help of another person with your personal care needs such as eating, bathing, dressing or getting around the house?: No Can you handle your own money without help?: Yes During the past 4 weeks, how would you rate your health in general?: very good During the past 4 weeks how have things been going for you?: pretty well Are you having difficulties driving your car?: no Do you always fasten your seat belt when you are in a car?: yes, usually During past 4 weeks, have you been bothered by the following: never: Falling or dizzy when standing up, Sexual problems?, Trouble eating well?, Teeth or denture problems? and Problems using the telephone? and sometimes: Tiredness or fatigue? Have you fallen 2 or more times in the past year?: No Are you afraid of falling?: Yes Are you a smoker?: no During the past 4 weeks, how many drinks of wine, beer, or other alcoholic beverages did you have?: no alcohol at all Do you exercise for about 20 minutes 3 or more times a week?: no, I usually do not exercise this much Have you been given information to help with the following?: yes: Hazards in your house that might hurt you? and yes: Keeping track of your medications? How often do you have trouble taking medicines the way you have been told to take them?: I always take medicine as prescribed How confident are you that you can control & manage most of your health problems?: very confident What is your race?: White PHQ-9 Over the last 2 weeks, how often have you been bothered by any of the following problems? 1. Little interest or pleasure in doing things: not at all 2. Feeling down, depressed, or hopeless: not at all 3. Trouble falling or staying asleep, or sleeping too much: not at all 4. Feeling tired or having little energy: not at all 5. Poor appetite or overeating: not at all 6. Feeling bad about yourself - or that you are a failure or have let yourself or your family down: not at all 7. Trouble concentrating on things, such as reading the newspaper or watching television: not at all 8. Moving or speaking so slowly that other people could have noticed. Or the opposite - being so fidgety or restless that you have been moving around a lot m ore than usual: not at all 9. Thoughts that you would be better off or of hurting yourself in some way: not at all Total score: 0 Depression Screening Interpretation: Negative Depression Screening Done: Yes 98630 - PHQ-9 Billing: Yes Source: Developed by Drs. Mehdi Bach, Paola Quan, Dyllan Palacio and colleagues, with an educational kim from [employer]. Review of Systems Const Denies poor appetite and Denies weakness Eyes Denies no additional complaints ENT Reports Normal hearing present, Denies dizziness, Denies nasal congestion, Denies tinnitus and Denies sore throat Card Denies chest pain, Denies syncope, Denies rapid heart rate and Denies dyspnea Resp Denies cough and Denies dyspnea GI Denies change in stool character, Reports constipation, Denies diarrhea, Denies nausea and Denies vomiting Denies urinary frequency, Denies difficulty voiding and Denies dysuria Neuro Reports Normal hearing present, Denies confusion, Denies dizziness, Denies syncope and Denies weakness Psych Denies confusion Physical Exam Vital Signs: Last Vital Signs Pulse 87 01/12/24 11:30 BP 142/70 H 01/12/24 11:30 Pulse Ox 95 01/12/24 11:30 Oxygen Delivery Method Room Air 01/12/24 11:30 BMI result Body Mass Index 33.2 Const General: No confusion Orientation/consciousness: No confusion HEENT Head: Yes normocephalic Ears: external ears normal and TM's normal bilaterally Face and sinus: Yes normal facial exam Mouth: moist mucous membranes Throat: Yes tonsils normal Eyes Conjunctivae: conjunctivae normal Pupils: Equal, round and reactive pupils present and Pupil accommodation reflex normal Direct Ophthalmoscopy: normal light reflex Neck Neck: No lymphadenopathy Thyroid: Thyroid normal Chest Chest palpation & inspection: normal inspection of the chest Resp Effort & Inspection: normal respiratory effort and no audible wheezes Auscultation: clear to auscultation bilaterally, no crackles, no wheezes and lung sounds not diminished Cardio Rate: regular rate Rhythm: regular rhythm Peripheral pulses: radial pulses present and dorsalis pedis present GI Other: declined Palpation (GI): no masses Auscultation: normal bowel sounds and normoactive bowel sounds Rectal Exam - Female: deferred Skin General skin exam: no rashes or lesions noted Rashes: no rashes Neuro General: No confusion Cranial nerves: Yes Equal, round and reactive pupils present and Yes Normal hearing present Cognition (Neuro): normal cognition Gait exam (Neuro): Normal gait present Motor exam (neuro): 5/5 motor strength present throughout Deep tendon reflexes (DTR's): Right brachioradialis reflex intensity grade: 2+, Left brachioradialis reflex intensity grade: 2+, Right patellar reflex intensity grade: 2+ and Left patellar reflex intensity grade: 2+ Extrem Other: pedal pulse good pin prick bad on the L > R General: No edema Results AMB Hemoglobin A1c AMB Hemoglobin A1c 6.5 % Last Edit by Alice Galaviz CMA on 01/12/24 12 :02 Results Reviewed Results Reviewed: Laboratory Last Values Hgb A1c (Clinic) 6.5 % (4.0-6.0) H 01/12/24 12:01 Assessment & Plan Assessment & Plan (1) Annual physical exam: Code(s): Z00.00 - Encounter for general adult medical examination without abnormal findings Plan: Patient is advised to eat healthy, keep well hydrated, keep active and have adequate sleep. (2) Positive colorectal cancer screening using Cologuard test: Code(s): R19.5 - Other fecal abnormalities Plan: Discussed with the patient regarding the results of the Cologuard test and colonoscopy (3) Coronary artery disease: Code(s): I25.10 - Atherosclerotic heart disease of [place] coronary artery without angina pectoris Qualifiers: Associated angina: without angina Coronary Disease-Associated Artery/Lesion type: [place] artery [place] vs. transplanted heart: [place] heart Qualified Code(s): I25.10 - Atherosclerotic heart disease of [place] coronary artery without angina pectoris Plan: Control the cholesterol, weight, blood pressure, diabetes on anticoagulation. (4) Obesity (BMI 30-39.9): Code(s): E66.9 - Obesity, unspecified Plan: Diet and exercise (5) Atrial fibrillation: Code(s): I48.91 - Unspecified atrial fibrillation Qualifiers: Atrial fibrillation type: paroxysmal Qualified Code(s): I48.0 - Paroxysmal atrial fibrillation Plan: Continue with anticoagulation with Eliquis will need to do blood work twice a day year. Patient on metoprolol and diltiazem (6) Obstructive sleep apnea: Comment: CPAP Code(s): G47.33 - Obstructive sleep apnea (adult) (pediatric) Plan: Continue to use the CPAP more than 4 hours a night and benefits from the (7) Type 2 diabetes mellitus with hyperglycemia: Comment: [facility] 01/2022 Code(s): E11.65 - Type 2 diabetes mellitus with hyperglycemia Qualifiers: Diabetes mellitus halfway insulin use: without supervisor intermediates use Qualified Code(s): E11.65 - Type 2 diabetes mellitus with hyperglycemia Plan: Decrease the amount of carbohydrate intake, pasta, bread, rice and potatoes are all sugar and that is aside from all the sweet stuff, remember that fruits are good but they are Sweet also. Diet controlled (8) Hypercholesterolemia: Code(s): E78.00 - Pure hypercholesterolemia, unspecified Plan: Avoid fried foods, chicken skin, eggs, butter margarine, pastries and meat. Be it pork or beef they have a lot of cholesterol LDL goal of less than 70 and triglyceride of less than 150 on Crestor 10 mg once a day (9) Hypertension: Code(s): I10 - Essential (primary) hypertension Qualifiers: Hypertension type: essential hypertension Qualified Code(s): I10 - Essential (primary) hypertension Plan: Continue with blood pressure medication. Decrease salt intake and exercise takes metoprolol 25 mg once a day olmesartan 20 mg once a day diltiazem 360 mg once a day and metoprolol 25 mg once a day (10) Generalized anxiety disorder: Code(s): F41.1 - Generalized anxiety disorder Plan: Continue with medication as needed (11) Breast cancer screening by mammogram: Code(s): Z12.31 - Encounter for screening mammogram for malignant neoplasm of breast Plan: Patient has declined mammogram for the moment (12) Colonoscopy refused: Code(s): Z53.20 - Procedure and treatment not carried out because of patient's decision for unspecified reasons Plan: Patient has declined colonoscopy Orders: Orders AMB Hemoglobin A1c Today Z13.9 - Encounter for screening, unspecified Quality Reporting (2019) Depression/Bipolar (159/160/161/177) PHQ-9: Total score: 0 Coding Level of Care Code Medicare Subsequent (G0439) Diagnoses Annual physical exam Z00.00 Positive colorectal cancer screening using Cologuard test R19.5 Coronary artery disease involving [place] coronary artery of [place] heart without angina pectoris I25.10 Associated angina: without angina Coronary Disease-Associated Artery/Lesion type: [place] artery [place] vs. transplanted heart: [place] heart Obesity (BMI 30-39.9) E66.9 Paroxysmal atrial fibrillation I48.0 Atrial fibrillation type: paroxysmal Obstructive sleep apnea G47.33 Type 2 diabetes mellitus with hyperglycemia, without long-term current use of insulin E11.65 Diabetes mellitus halfway insulin use: without halfway use Hypercholesterolemia E78.00 Essential hypertension I10 Hypertension type: essential hypertension Generalized anxiety disorder F41.1 Breast cancer screening by mammogram Z12.31 Colonoscopy refused Z53.20
[2024-01-12 11:30] VITALS: BP 142/70; PULSE 87; O2SAT 95; BMI 33.2
== END 2024-01-12 12:25 | disposition home or self-care (01) ==
LOC: HO.HMCH 11:09
PROVIDERS: PCP Internal Medicine; Visit Provider Internal Medicine
DX: Z00.00 Encounter for general adult medical examination without abnormal findings (principal); R19.5 Other fecal abnormalities; I48.0 Paroxysmal atrial fibrillation; E11.65 Type 2 diabetes mellitus with hyperglycemia; I25.10 Atherosclerotic heart disease of native coronary artery without angina pectoris; G47.33 Obstructive sleep apnea (adult) (pediatric); E66.9 Obesity, unspecified; E78.00 Pure hypercholesterolemia, unspecified; I10 Essential (primary) hypertension; F41.1 Generalized anxiety disorder; Z12.31 Encounter for screening mammogram for malignant neoplasm of breast; Z53.20 Procedure and treatment not carried out because of patient's decision for unspecified reasons

== ENCOUNTER → 2024-01-12 11:08 | Outpatient (BNVA) | payer MEDICARE, SELFPAY | PROVIDERS: PCP Internal Medicine; Visit Provider Internal Medicine | DX: Z00.00 Encounter for general adult medical examination without abnormal findings (principal); R19.5 Other fecal abnormalities; I25.10 Atherosclerotic heart disease of native coronary artery without angina pectoris; E66.9 Obesity, unspecified; I48.0 Paroxysmal atrial fibrillation; G47.33 Obstructive sleep apnea (adult) (pediatric); E11.65 Type 2 diabetes mellitus with hyperglycemia; E78.00 Pure hypercholesterolemia, unspecified; I10 Essential (primary) hypertension; F41.1 Generalized anxiety disorder | CPT/HCPCS: 83036 ==

== ENCOUNTER 2024-05-06 10:42 | Outpatient (AMB) | payer MEDICARE, SELFPAY ==
--- NOTE | 2024-05-06 10:55 | MHC.PC.OV ---
Vital Signs 05/06/24 10:58 Height 5 ft Weight 154 lb 8 oz BMI 30.2 BP 146/88 H Blood Pressure Location Rt brachial Position Sitting Pulse 82 Pulse Source Pulse Oximeter Temp 97.1 F Temp Source Temporal Artery Scan Pulse Oximetry (%) 97 Oxygen Delivery Method Room Air Intake Visit Reasons: [facility] 05/02 SOB/Fluid in lungs Intake Note: Patient is here for hospital discharge follow up. Patient was discharged from [facility] on 05/02/24. Mailroom Messenger Required: No Clam Bed Worker: Not Required per policy Accompanied by: Self / Same As Patient Allergies atorvastatin [From Lipitor] Allergy (Unknown, Verified 05/06/24 10:58) Unknown codeine [CODEINE] Allergy (Unknown, Verified 05/06/24 10:58) Unknown Iodinated Contrast Media Allergy (Unknown, Verified 05/06/24 10:58) MRI Dye- unknown morphine [MORPHINE] Allergy (Unknown, Verified 05/06/24 10:58) Unknown crab Allergy (Verified 05/06/24 10:58) Unknown Tobacco use date assessed: 05/06/24 Fall risk assessment: No Falls in past year Last assessed Fall Risk: 05/06/24 Dental Screening Dental Screen Date: 05/06/24 Did you have a dental visit in the last 12 months?: Yes Did you have a dental problem in the last 6 months where you did not have access to dental care?: No Was dental information given to patient?: Patient has dentist HPI HPI Comments History of Present Illness Details 78 y/o female patient who presents to the clinic for HDF. Pmhx significant for Stage 3c Endometrial CA S/P TLH, BSO, PLND and Chemo with 6 cycles, HTN, Ovesity, Osteopenia, A-fib on Eliquis, SHANNAN on CPAP. Admitted at [facility] on 04/29/24 due to CHF Exacerbation likely secondary to recent prednisone use for Rash induced by Chemo Agent. She was discharged home on 05/02/24. Her Chemo Drug has been discontinued for now - has an appointment with Oncology 05/19/24. She had an Echo done in the hoospital that showed EF of 47%, worsened from prior Echo done in March. A1C was 9%, could be due to underlying DM vs Hyperglycemia secondary to Prednisone use. [facility] Medical History (Updated 05/06/24 @ 11:51 by Sierra K W Ndissi, INTERPERSONAL COMMUNICATIONS PROFESSOR) CHF (congestive heart failure) Post-menopausal Left elbow fracture Coronary artery disease Hiatal hernia Cataracts, bilateral Vitamin D deficiency Obesity (BMI 30-39.9) Atrial fibrillation Obstructive sleep apnea Type 2 diabetes mellitus with hyperglycemia Type 2 diabetes mellitus with diabetic neuropathic arthropathy Hypercholesterolemia Hypertension Surgical History S/P MARC-BSO History of cataract surgery Family History Father CVD (cardiovascular disease) Myocardial infarction Mother No problems noted. Maternal Aunt Breast cancer Skin cancer Brother No problems noted. Sister No problems noted. Son No problems noted. Son No problems noted. Social History Housing: House Alcohol intake: never Patient Tobacco Use Status: Never used Tobacco e-Cigarette/Vaping Use: Never Used Second Hand Smoke Exposure: No service: No Current occupational status: retired Cognitive needs: No Hearing needs: No Vision needs: Yes Questionnaire PHQ-9 Over the last 2 weeks, how often have you been bothered by any of the following problems? 1. Little interest or pleasure in doing things: not at all 2. Feeling down, depressed, or hopeless: not at all 3. Trouble falling or staying asleep, or sleeping too much: not at all 4. Feeling tired or having little energy: not at all 5. Poor appetite or overeating: not at all 6. Feeling bad about yourself - or that you are a failure or have let yourself or your family down: not at all 7. Trouble concentrating on things, such as reading the newspaper or watching television: not at all 8. Moving or speaking so slowly that other people could have noticed. Or the opposite - being so fidgety or restless that you have been moving around a lot more than usual: not at all 9. Thoughts that you would be better off or of hurting yourself in some way: not at all Total score: 0 Depression Screening Interpretation: Negative Depression Screening Done: Yes Source: Developed by Drs. Mehdi Bach, Paola Quan, Dyllan Palacio and colleagues, with an educational kim from [employer]. Thrive Questionnaire Date Thrive assessed: 05/06/24 I am a: Patient What is your living situation today?: I have a steady place to live Within the past 12 months, did the food you bought not last and you didn't have the money to get more?: Never true Within the past 12 months, did you worry whether your food would run out before you got money to buy more?: Never true Do you have trouble paying for medicines?: No Do you have trouble getting transportation to medical appointments?: No Do you have trouble paying your heating and electricity bill?: No Do you have trouble taking care of your child, family member or friend?: No Do you have trouble with day-to-day activities such as bathing, preparing meals, shopping, managing finances, etc.?: No Are you currently unemployed and looking for a job?: No Are you interested in more education?: No Please select the resources that you would like help with: None Currently or been in a relationship where the following occur: No concerns reported THRIVE Score: 0 AUDIT C Alcohol Use Questionnaire (AUDIT-C) 1. How often do you have a drink containing alcohol?: Never Total Score: 0 RAKESH-7 AMB Questionnaire RAKESH-7 Date RAKESH - 7 assessed: 05/06/24 Feeling nervous, anxious, or on edge: 0 = Not at all Not being able to stop or control worryin = Not at all Worrying too much about different things: 0 = Not at all Trouble relaxin = Not at all Being so restless that it is hard to sit still: 0 = Not at all Becoming easily annoyed or irritable: 0 = Not at all Feeling afraid as if something awful might happen: 0 = Not at all Total RAKESH-7 score (0-4 normal; 5-9 mild; 10-14 moderate; 15-21 severe): 0 Source: Developed by Drs. Mehdi Bach, Paola Quan, Dyllan Palacio and colleagues, with an educational kim from [employer]. Review of Systems Const All systems reviewed & are unremarkable except as noted in HPI and below Physical exam (Primary Care) Vital Signs: Last Vital Signs Temp 97.1 F 05/06/24 10:58 Pulse 82 05/06/24 10:58 BP 146/88 H 05/06/24 10:58 Pulse Ox 97 05/06/24 10:58 Oxygen Delivery Method Room Air 05/06/24 10:58 BMI result Body Mass Index 30.2 Tobacco/Smoking Status: Tobacco use Status Tobacco use date assessed 05/06/24 05/06/24 11:03 Patient Tobacco Use Status Never used Tobacco 05/06/24 11:03 e-Cigarette/Vaping Use Never Used 05/06/24 11:03 PHQ-9: PHQ-9 Score PHQ-9: Total score 0 05/06/24 11:03 Depression Screening Interpretation: Negative Thrive Assessment: Date of Thrive Assessment Date Thrive assessed 05/06/24 05/06/24 11:03 Currently or been in a relationship where the following occur: No concerns reported Const General: cooperative and no acute distress Nutritional Appearance: obese Orientation/consciousness: patient oriented x3 HENMT Head: Yes normocephalic Resp Effort & Inspection: normal respiratory effort and able to speak in complete sentences Auscultation: clear to auscultation bilaterally, no crackles, no rales, no rhonchi and no wheezes Cardio Rhythm: abnormal rhythm regularly irregular Heart sounds: S1 normal heart sound present and S2 normal heart sound present Neuro General: patient oriented x3, gait normal and moves all extremities Psych Speech and movement: Normal speech and movement present Coding Level of Care Code Est Pt Level 4 (49748) Diagnoses Acute congestive heart failure, unspecified heart failure type I50.9 Heart failure type: unspecified Heart failure chronicity: acute Type 2 diabetes mellitus with hyperglycemia, without long-term current use of insulin E11.65 Diabetes mellitus medical terminologist insulin use: without [facility] use Time Spent (min) 20 Assessment & Plan Assessment & Plan (1) CHF (congestive heart failure): Code(s): I50.9 - Heart failure, unspecified Category: Medical Qualifiers: Heart failure type: unspecified Heart failure chronicity: acute Qualified Code(s): I50.9 - Heart failure, unspecified Plan: Pt will f/u with [facility] - she will schedule an appointment with them. Continue on Dapagliflozin 10 mg - prescribed in the hospital. (2) Type 2 diabetes mellitus with hyperglycemia: Comment: [facility] 01/2022 Code(s): E11.65 - Type 2 diabetes mellitus with hyperglycemia Category: Medical Qualifiers: Diabetes mellitus [facility] insulin use: without medical terminologist use Qualified Code(s): E11.65 - Type 2 diabetes mellitus with hyperglycemia Plan: Repeat A1C in 3 months Had discussion on Low Sugar, Low Carb diet. Currently taking Farxiga - started in the hospital.
[2024-05-06 10:58] VITALS: BP 146/88; PULSE 82; TEMP 36.2; O2SAT 97; BMI 30.2
--- OUTSIDE RECORDS SUMMARY | 2024-05-06 12:14 | XMS_ITS | Patient Health Record ---
Author Organization [facility] [place] Address [address] [place] [address] Care Team Providers Care Sports Announcer Name Role Phone Shelia Gill Primary Care Provider Per Acosta Unavailable [phone] Allergies Allergen (clinical drug ingredient) Drug/Non Drug Allergy documented on EMR Reaction Allergy Type Onset Date Status crab allergenic extract Crab (uncoded) itchy Allergy Active Shrimp Flavor itchy Drug Allergy Act casandra codeine Codeine Unknown Drug Allergy Active morphine Morphine Unknown Drug Allergy Active Shellfish (FN) Shellfish-derived Products Unknown Drug Allergy Active Reason For Referral No Information Medications Medication SIG (Take, Route, Frequency, Duration) Notes Start Date End Date Status Calcium + D 500-1000-40 MG-UNT-MCG Orally Active dilTIAZem HCl 360 mg 1 daily Active Eliquis 5 MG Orally Active Loratadine 10 MG 1 tablet Orally Once a day for 30 day(s) Active Metoprolol Succinate 25MG 1 po QD Active Ocuvite Orally Active Potassimin Active Rosuvastatin Calcium 5 MG 1 tablet Orall y Once a day Active Baby Aspirin 81 MG 1 tablet Orally Once a day for 30 day(s) Active Tribenzor 20-5-12.5 MG 1 tablet Orally O nce a day for 30 day(s) Active Benicar 20 MG Orally Once a day Active Zantac Active Crestor 5 MG 2 tablets Orally Onc e a day for 30 day(s) Active Immunizations Vaccine Route Administration Date Status Comme nts COVID-19 Pfizer BioNTech Vaccine Unknown 07/16/2021 Administered 1st 04/11/2020 2nd 05/02/2020 3rd 12/05/2020 Flu vaccine no Preserv 3 and > Unknown 12/13/2014 Administered Social History Tobacco Use: Social History Observation Description Date Details (start date - stop date) Never Smoker NA - NA Tobacco Use/Smoking Question Answer Notes Are you a: nonsmoker Additional Findings: Tobacco Non-User Current no n-smoker Alcohol Screen Question Answer Notes Did you have a drink containing alcohol in the p ast year? No Points 0 Interpretation Negative Tobacco use other than smoking: Question Answer Notes Are you an other tobacco user? No Problems Problem Type SNOMED Code ICD Code Onset Dates Problem Status W/U Status Risk Notes Problem Acquired hallux valgus (44339336) Hallux valgus (acquired), right foot (M20.11) Active confirmed Problem Polyneuropathy due to type 2 diabetes mellitus (464892435) Type 2 diabetes mellitus with diabetic polyneuropathy (E11.42) Active confirmed Problem Polyneuropathy due to diabetes mellitus type I (516906345) Type 1 diabetes mellitus with diabetic polyneuropathy (E10.42) Active confirmed Plan Of Treatment Pending Test Test Name Order Date Hemoglobin A1c 07/25/2013 01668-ALIF SKIN LESIONS, OVER 4 07/13/19 20 98018-JHCY SKIN LESIONS, OVER 4 07/19/19 21 41334-QMIP SKIN LESIONS, OVER 4 07/16/19 16 66581-JAYK SKIN LESIONS, OVER 4 07/15/19 17 63388-QGWK SKIN LESIONS, OVER 4 07/14/19 18 41171-SROJ SKIN LESIONS, OVER 4 07/15/19 19 13706-MEEP SKIN LESIONS, 2 TO 4 07/26/19 14 29247-QKGD SKIN LESIONS, 2 TO 4 07/25/19 15 84672-NYEB NAIL(S) 07/24/2014 83370-VFDN NAIL(S) 07/14/2016 08025-BSNC NAIL(S) 07/13/2017 Z8725-ZJRSALEY DYSTROPHIC NAILS ANY # D5958-OGYHCBCP DYSTROPHIC NAILS ANY # Q0686-MOQOYROL DYSTROPHIC NAILS ANY # Insurance Providers Payer Name Payer Address Payer Phone Subscriber Number Group Number Insured Name Patient Relationship to Insured Coverage Start Date Coverage End Date Medicare National Govt Sv[employer] [address] [place] [address] [phone] [id number] Lucía Fragoso Self - [facility] is the [facility] [address] [place] [address] [id number] Lucía Fragoso Self - patient is the insured Medical (General) History Medical History History ICD Code broken bones Cholesterol hypertension measles mumps chicken pox diabetic Surgical History Surgery Date(Month/Year) breast biopsy cataract surgery 02/20/2018 cataract surgery 03/2018 Hospitalization History Reason Date(Month/Year) a fib december
--- OUTSIDE RECORDS SUMMARY | 2024-05-06 12:14 | XMS_ITS | Patient Health Record ---
Author Organization [facility] Address [address] [place] [address] Care Team Providers Care Engineered Wood Designer Name Role Phone Po Shelia RASHID Primary Care Provider Mehdi Castle [phone] REASON FOR REFERRAL No Information SOCIAL HISTORY Sex Assigned At : Social History Observation Description Sex Assigned At Unknown PLAN OF TREATMENT No Information Insurance Providers Payer Name Payer Address Payer Phone Subscriber Number Group Number Insured Name Patient Relationship to Insured Coverage Start Date Coverage End Date MEDICARE OF [place] [address] [place] [address] [id number] IVAN HITCHCOCK Self - patient is the insured MED[employer] ATTN CLAIMS [address] [place] [address] [id number] IVAN HITCHCOCK Self - patient is the insured
--- OUTSIDE RECORDS SUMMARY | 2024-05-06 12:14 | XMS_ITS | Continuity of Care Document ---
Author Organization [facility] ter Address [address] [place] [address]- Care Team Providers Care Ultrasound Specialist Name Role Phone Po Shelia RASHID Primary Care Physician Encounter [facility] Date(s): 02/05/24 - 04/29/[address] [address] Attending Physician: Cecilia Crystal MD Admitting Physician: Cecilia Crystal MD Referring Physician: Cecilia Crystal MD Encounter Type: Pre-Outpt Allergies, Adverse Reactions, Alerts Substance Criticality Severity Reaction Reaction Severity Status codeine Vomiting Active morphine Vomiting Active Immunizations Given and Recorded Vaccine Date Status Refusal Reason influenza virus vaccine, inactivated 12/23/21 Dileep rded influenza virus vaccine, inactivated 01/08/21 Dileep rded influenza virus vaccine, inactivated 12/16/19 Dileep rded influenza virus vaccine, inactivated 12/24/18 Dileep rded influenza virus vaccine, inactivated 12/02/17 Dileep rded influenza virus vaccine, inactivated 04/15/17 Dileep rded [id number] 12y+ bivalent booster vax 12/11/21 Recorded SARS-CoV-2 mRNA ([id number]) vax 07/16/21 Recorded SARS-CoV-2 (COVID-19) mRNA BNT-162b2 vac 12/05/20 Recorded SARS-CoV-2 (COVID-19) mRNA BNT-162b2 vac 05/02/20 Recorded SARS-CoV-2 (COVID-19) mRNA BNT-162b2 vac 04/11/20 Recorded zoster vaccine, inactivated 09/15/18 Recorded zoster vaccine, inactivated 08/11/18 Recorded zoster vaccine, inactivated 07/20/18 Recorded zoster vaccine, inactivated 06/04/18 Recorded pneumococcal 23-valent vaccine 09/15/18 Recorded pneumococcal 13-valent vaccine 11/29/15 Recorded Zoster Vaccine Live 03/22/14 Recorded Medications Crestor 10 mg oral tablet TAKE 1 TABLET DAILY Start Date: 04/29/24 Status: Ordered Repeat number: 1 cyanocobalamin 500 mcg oral tablet 1 tablet = 500 mcg, By Mouth, Daily, # 30 tablet, 0 Refills, Maintenance, 05/07/22 9:16:00 AM EST, Tablet, Partial fill upon patient request if the prescription is for a schedule II opioid drug. Start Date: 05/07/22 Status: Ordered Quantity: 30.0 Unit: tablet Repeat number: 1 DilTIAZem (Eqv-Cardizem CD) 180 mg/24 hours oral capsule, extended release 0 Refills, Maintenance, 04/29/24 5:11:00 PM EST, Partial fill upon patient request if the prescription is for a schedule II opioid drug. Start Date: 04/29/24 Status: Ordered Repeat number: 1 Eliquis 5 mg oral tablet 1 tablet = 5 mg, By Mouth, 2 times a day, 0 Refills, Maintenance, 03/30/24 10:23:00 AM EST, Partial fill upon patient request if the prescription is for a schedule II opioid drug. Start Date: 03/30/24 Status: Ordered Repeat number: 1 gabapentin 300 mg oral capsule 300 mg, 1, capsule, By Mouth, Daily at bedtime, # 30 capsule, Refills 3, Tot. Refills 3, Maintenance, 11/19/23 8:52:00 AM EDT, Route to Pharmacy Electronically, [facility] # [facility], Partial fill upon patient request if the prescription is for a schedule II opioid drug., 149, cm, 11/06/23 9:45:00 EDT, Height, 77, kg, 11/06/23 8:04:00 EDT, Dry Weight Start Date: 11/19/23 Stop Date: 03/18/24 Status: Ordered Quantity: 30.0 Unit: capsule Repeat number: 4 Indication: Drug-induced polyneuropathy loratadine 10 mg oral capsule 1 capsule = 10 mg, By Mouth, Daily, # 10 capsule, 0 Refills, Maintenance, 05/07/22 9:16:00 AM EST, Capsule, Partial fill upon patient request if the prescription is for a schedule II opioid drug. Start Date: 05/07/22 Status: Ordered Quantity: 10.0 Unit: capsule Repeat number: 1 Magnesium Gluconate By Mouth, 2 times a day, 0 Refills, Maintenance, 03/30/24 10:18:00 AM EST, Partial fill upon patientrequest if the prescription is for a schedule II opioid drug. Start Date: 03/30/24 Status: Ordered Repeat number: 1 metoprolol 25 mg oral tablet 25 mg, 1, tablet, By Mouth, 2 times a day, # 60 tablet, Refills 0, Maintenance, 05/07/22 9:16:00 AM EST, Partial fill upon patient request if the prescription is for a schedule II opioid drug. Start Date: 05/07/22 Status: Ordered Quantity: 60.0 Unit: tablet Repeat number: 1 olmesartan 20 mg oral tablet 1 tablet = 20 mg, By Mouth, Daily, # 30 tablet, 0 Refills, Maintenance, 05/07/22 9:15:00 AM EST, Tablet, Partial fill upon patient request if the prescription is for a schedule II opioid drug. Start Date: 05/07/22 Status: Ordered Quantity: 30.0 Unit: tablet Repeat number: 1 predniSONE 10 mg oral tablet See Instructions, 4 tabs by mouth in the morning x 5 days, 3 tabs by mouth in the morning x5 days, 2 tabs by mouth in the morning x3 days, 1 tab by mouth in the morning x3 days, then 1/2 tab by mouthin the morning x3 days. Currently taking 30 mg for 5 days starting 04/30, # 46 tablet, 0 Refills, Maintenance, 04/25/24 1:41:00 PM EST, [facility] # [facility], Partial fill upon patient request if the prescription is for a schedule II opioid drug., 149.5, cm, 04/25/24 13:25:00 EST, Height, 74.2, kg, 04/25/24 13:25:00 EST, Dry Weight Start Date: 04/25/24 Status: Ordered Quantity: 46.0 Unit: tablet Repeat number: 1 Indication: Generalized skin eruption due to drugs and medicaments taken internally Vitamin D3 1000 intl units oral capsule 1 capsule = 25 mcg, By Mouth, Daily, 0 Refills, Maintenance, 06/03/22 3:25:00 PM EDT, Partial fill upon patient request if the prescription is for a schedule II opioid drug. Start Date: 06/03/22 Status: Ordered Repeat number: 1 Problem List Condition Confirmation Course Effective Dates Status Health Status Informant Palmar plantar erythrodysesthesia Confirmed Active Deformity of right knee joint Confirmed Active Rash Confirmed Active Maintenance chemotherapy Confirmed Active HTN (hypertension) Confirmed Active Lip swelling Confirmed Active Endometrial cancer Confirmed Active Chemotherapy-induced nausea Confirmed Active Chemotherapy-induced neuropathy Confirmed Active Obese class I Confirmed Active Vaginal bleeding Confirmed Active Social History Social History Type Response Smoking Status Never (less than 100 in lifetime) entered on: 05/07/22 Sex Sex Representation Female (finding) Patient Care team information Care Team Personnel Name: Roxy Knowles RN Position: S Onco RN Member Role: Primary Care Nurse Name: Carissa Das RN Position: S [place]co RN Member Role: Primary Care Nurse Name: Nate Gibbons RN Position: S [place] RN Member Role: Primary Care Nurse Name: Katie Castañeda RN Position: S [place]co RN Member Role: Primary Care Nurse Name: Shelia Gill MD Position: Reference Physician Member Role: PCP Address: [address] [place] [address] Telecom: Name: Geovanni Gomez RN Position: S RN Member Role: Primary Care Nurse Name: Kaylin Delgadillo RN Position: [facility] Onco RN Member Role: Primary Care Nurse Care Team Related Persons Name: STEPHANI HITCHCOCK Insurance Providers Guarantor name: IVAN HITCHCOCK Health Plan Information #: 1 Payer: MEDICARE PART B OUTPT Member Number: [id number] Policy Number: NA Group Number: NA Health Plan Information #: 2 Payer: MEDEX Member Number: [id number] Policy Number: NA Group Number: NA
--- OUTSIDE RECORDS SUMMARY | 2024-05-06 12:14 | XMS_ITS | Continuity of Care Document ---
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 Name Role Phone Po Shelia RASHID Primary Care Physician [phone] Encounter [facility] [place] Date(s): 04/29/24 - 05/02/[address] [id number] Encounter Diagnosis CHF exacerbation(Final) - 04/29/24 Discharge Disposition: A-D/C Home Attending Physician: Rebel Bassett MD Admitting Physician: Karis Hope DO Referring Physician: Not on Staff, Referring MD Encounter Type: Disch IP Allergies, Adverse Reactions, Alerts Substance Criticality Severity [...] influenza virus vaccine, inactivated 04/15/17 Dileep rded [id number] 12y+ bivalent booster vax 12/11/21 Recorded SARS-CoV-2 mRNA ([id number]) vax 07/16/21 Recorded SARS-CoV-2 (COVID-19) mRNA BNT-162b2 [...] Quantity: 30.0 Unit: tablet Repeat number: 1 dapagliflozin 10 mg oral tablet = 10 mg, By Mouth, Daily, # 30 tablet, 0 Refills, Maintenance, 05/02/24 9:12:00 AM EST, Tablet, [facility], Partial fill upon patient request if the prescription is for a schedule II opioid drug., 150, cm, 05/02/24 7:55:00 EST, Height, 69, kg, 05/02/24 5:01:00 EST, Dry Weight Start Date: 05/02/24 Status: Ordered Quantity: 30.0 Unit: tablet Repeat number: 1 Deltec Cozmo Glucometer See Instructions, # 1 Unknown, Maintenance, Please check glucose levels daily and follow up with PCP, 05/02/24 9:12:00 AM EST, Supply, 150, cm, 05/02/24 7:55:00 EST, Height, 69, kg, 05/02/24 5:01:00 EST, Dry Weight Start Date: 05/02/24 Status: Ordered Quantity: 1.0 Unit: Unknown Repeat number: 1 DilTIAZem (Eqv-Cardizem CD) 180 mg/24 hours oral capsule, extended release 0 Refills, Maintenance, 04/29/24 5:11:00 PM EST, Partial fill upon patient request if the prescription is for a schedule II opioid drug. Start Date: 04/29/24 Status: Ordered Repeat number: 1 diltiazem 180 mg/24 hours oral capsule, extended release 180 mg, CD Capsule, By Mouth, 05/02/24 9:00:00 AM EST Start Date: 05/02/24 Stop Date: 05/02/24 Status: Completed Repeat number: 1 Eliquis 5 mg oral [...] 8:52:00 AM EDT, Route to Pharmacy Electronically, [facility] # 50, Partial fill upon patient request if the prescription is for a schedule II opioid drug., 149, cm, 11/06/23 9:45:00 EDT, Height, 77, kg, 11/06/23 8:04:00 EDT, Dry Weight Start Date: 11/19/23 Stop Date: 03/18/24 Status: Ordered Quantity: 30.0 Unit: capsule Repeat number: 4 Indication: Drug-induced polyneuropathy gabapentin 300 mg oral capsule 300 mg, Capsule, By Mouth, 05/01/24 9:00:00 PM EST Start Date: 05/01/24 Stop Date: 05/01/24 Status: Completed Repeat number: 1 loratadine 10 mg oral capsule 1 capsule [...] metoprolol 25 mg oral tablet 25 mg, Tablet, By Mouth, 05/02/24 9:00:00 AM EST Start Date: 05/02/24 Stop Date: 05/02/24 Status: Completed Repeat number: 1 metoprolol 25 mg oral tablet, extended release 25 mg, 1, tablet, By Mouth, Daily, # 30 tablet, Refills 0, Tot. Refills 0, Maintenance, 05/02/24 11:55:00 AM EST, Route to Pharmacy Electronically, [facility], Partial fill upon patient request if the prescription is for a schedule II opioid drug., 150, cm, 05/02/24 11:03:00 EST, Height, 69, kg, 05/02/24 5:01:00 EST, Dry Weight Start Date: 05/02/24 Status: Ordered Quantity: 30.0 Unit: tablet Repeat number: 1 olmesartan 20 [...] 0 Refills, Maintenance, 04/25/24 1:41:00 PM EST, [facility] # [facility], Partial fill upon patient [...] I Confirmed Active Vaginal bleeding Confirmed Active Results Radiology Reports * Exam Date Time Procedure Performing Provider Status 04/29/24 12:28 PM Chest 2 Views Frontal and Lat Jil Avila; Tree (Verified) Notes: (Chest 2 Views Frontal and Lat) Reason For Exam: Chest Pain;Other: RESULT: Chest 2 Views Frontal and Lat Examination: Chest performed on 04/29/2024. History: Chest pain. Findings: Frontal and lateral views of the chest are submitted without comparison. The cardiac and mediastinal silhouettes are within normal limits. Pulmonary edema and trace pleuraleffusions are present. Osteophyte formation within the thoracic spine is noted. IMPRESSION: Pulmonary edema and pleural effusions. WSN: [id number] Ordering Physician: Margaret Elizondo Dictated By: Sole Nguyen MD Dictated Date/Time: 04/29/24 12:44 p Reviewed By: Sole Nguyen MD Signed By: Sole Nguyen MD Signed Date/Time: 04/29/24 12:44 pm Transcribed By: FRANCESCO Transcribed Date/Time: 04/29/24 12:43 pm Vital Signs Most recent to oldest [Reference Range]: 1 2 3 Height 150 cm (05/02/24 11:03 AM) 150 cm (05/02/24 7:55 AM) 150 cm (05/02/24 2:44 AM) Weight 68.4 kg (05/01/24 5:11 AM) 68.7 kg (04/30/24 6:19 AM) 70.9 kg (04/29/24 5:47 PM) Oxygen Saturation [94-100 %] 96 % (05/02/24 7:55 AM) 95 % (05/02/24 2:44 AM) 94 % (05/01/24 7:59 PM) Pulse Rate [55-90 bpm] 87 bpm (05/02/24 11:03 AM) 89 bpm (05/02/24 8:37 AM) 89 bpm (05/02/24 8:37 AM) Body Mass Index [18.5-24.99 kg/m2] 31.51 kg/m2 *>HHI* (04/29/24 5:47 PM) Blood Pressure [90-138/55-84 mm Hg] 145/83mm Hg *H* (05/02/24 11:03 AM) 155/93mm Hg *H* (05/02/24 8:37 AM) 155/93mm Hg *H* (05/02/24 8:37 AM) Respiratory Rate [16-30 br/min] 18 br/min (05/02/24 7:55 AM) 18 br/min (05/02/24 2:44 AM) 18 br/min (05/01/24 10:27 PM) Temperature [96.8-100.4 DegF] 97.7 DegF (05/02/24 7:55 AM) 97.7 DegF (05/02/24 2:44 AM) 97.0 DegF (05/01/24 7:59 PM) Liters per Minute 2 L/min (05/01/24 8:05 AM) 3 L/min (04/30/24 2:56 AM) 3 L/min (04/29/24 5:47 PM) Mode of Delivery (Oxygen) Room air (05/02/24 7:55 AM) CPAP (05/02/24 2:44 AM) Room air (05/01/24 7:59 PM) Blood pressure sites Arm, right (05/02/24 11:03 AM) Arm, left (05/02/24 7:55 AM) Arm, right (05/02/24 2:44 AM) Temperature Route Oral (05/02/24 7:55 AM) Oral (05/02/24 2:44 AM) Temporal (05/01/24 7:59 PM) Dry Weight 69 kg (05/02/24 5:01 AM) 74.2 kg (04/29/24 5:47 PM) Weight Obtained Via Bed scale (05/01/24 5:11 AM) Bed scale (04/30/24 6:19 AM) Bed scale (04/29/24 5:47 PM) Dry Weight Obtained Via Bed scale (05/02/24 5:01 AM) Social History Social History Type Response Smoking Status Never (less than 100 in lifetime) entered on: 05/07/22 Sex Sex Representation Female (finding) Admission evaluation note * Rodrigo RASHID, Anahy Marroquin: MODIFY, MODIFY, MODIFY, MODIFY, MODIFY, MODIFY, MODIFY, PERFORM, MODIFY, MODIFY Event Display: Admission Note Authored Date: Patient: ??LUCÍA FRAGOSO ? Age:??78 Years?Sex:??Female?:??1945?? Chief Complaint/Reason for Consultation From home. Acute onset SOB at home this morning. O2 on EMS arrival 88% RA, 2lpm improved to 95%. Cough x2 days, more productive today. History of Present Illness This is a 78-year-old female with a past medical history of recurrent stage IIIc endometrial cancer[s/p TLH, BSO, PLND and??chemo??with 6 cycles of carbo/taxol,??pembro,??doxil; currently on letrozole and everolimus as chemo maintenance (started 02/18/2024) which??were recently stopped secondary to generalized rash], HTN, obesity, osteopenia, atrial fibrillation on Eliquis,??SHANNAN on CPAP who presents to the hospital for SOB.??Patient called EMS after she was short of breath at home, was found to be 88% on room air, placed on 2 L.? ED course: -Normotensive on admission, saturating well on 2 to 4 L nasal cannula, subsequently hypertensive [id number] over 90s.?? Afebrile and not tachycardic. -Labs with WBC 16, normal hemoglobin and platelet, absolute neutrophil 14.3, BMP with potassium 3.5, normal creatinine, troponin 9, negative flu, RSV, COVID, negative UA. proBNP to 3k. -Chest x-ray with pulmonary edema and pleural effusions -In the ED, she received Lasix 20 mg IV.?? Patient is Lasix na??ve. -EKG showing atrial fibrillation, low voltage, otherwise no ST/T wave changes ?? On my evaluation she??is comfortable??in bed.??She was saturating up to??97% on 2LNC which I??removed??to assess??her??O2 needs,??and as she??talked??and??moved??around minimally in bed for??exam herO2 did drop??to??90. She reports this SOB over the past few days however worsened yesterday. Also reports dry cough. She initially endorsed orthopnea however that was resolved by the time of my evaluation. She denies PND.?? She denies chest pain, fevers, chills, recent illnesses, high intake of salt in diet. She endorses compliance with CPAP and denies feeling palpitations or noticing she's been tachycardic recently. ?? Of note, her Everolimus chemotherapy was recently stopped and is on prednisone taper to control??its rash.?? Review of Systems ROS negative.?? Objective ? Vital Signs?? Temperature: 98 DegF (04/29/24 15:35:00) Temperature Route: Oral (04/29/24 15:35:00) Pulse Rate:??96 bpm??High (04/29/24 15:35:00) Respiratory Rate: 23 br/min (04/29/24 15:35:00) Systolic Blood Pressure:??154 mm Hg??High (04/29/24 15:35:00) Diastolic Blood Pressure: 80 mm Hg (04/29/24 15:35:00) Blood pressure sites: Arm, right (04/29/24 15:35:00) Mean Arterial Pressure: 105 mm Hg (04/29/24 15:35:00) Pulse Pressure: 74 mm Hg (04/29/24 15:35:00) Oxygen Saturation: 96 % (04/29/24 15:35:00) Liters per Minute: 4 L/min (04/29/24 15:35:00) Mode of Delivery (Oxygen): Nasal cannula (04/29/24 15:35:00) Early Warning Score: 5 (04/29/24 17:26:34) ? Physical Exam General: Resting in bed, comfortable on 2LNC HEENT: Normocephalic, atraumatic. Mucous membranes moist.?? Cardiac: Regular rate and rhythm. Normal S1 and S2 heard. No discernable JVD appreciated.? Respiratory: Lung sounds with mild crackles to bases Abdomen: Soft, non-tender?? Extremities: No swelling or erythema. Full range of motion is noted at all joints. Skin: Skin is warm and dry Neurological: AAOx3. No focal deficits. Psychiatric: Normal mood and affect.? 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 Assessment:??This is a 78-year-old female with a past medical history of recurrent stage IIIc endometrial cancer [s/p TLH, BSO, PLND and??chemo??withcarbo/taxol,??pembro,??doxil; currently on letrozole and everolimus as maintenance (started 02/2024) which??were recently stopped dueto generalized rash], HTN, obesity, osteopenia, atrial fibrillation on Eliquis,??SHANNAN on CPAP who presents to the hospital for SOB.and admitted for concern of new onset CHF.? New-onset CHF (I50.9):?? -Presenting with few day history of shortness of breath, orthopnea, with pulmonary edema and pleural effusions on chest x-ray and crackles on exam along with proBNP 3000 -Patient has echo performed 03/2024 which showed preserved EF 50 to 60%, no definite wall motion abnormalities, unable to assess DD due to atrial fibrillation, LA severely dilated -Possibly, though not a common reported side effect, everolimus can potentially cause heart failure. Doxorubicin is associated with CDM and the patient has had routine Echos performed recently.??Otherwise patient does not been endorsing palpitations or been tachycardic recently to suggest tachycardia induced cardiomyopathy. ACS unlikely given negative troponin and EKG without ST/T wave changes. Ultimately, she has been on prednisone recently??which can exacerbate fluid overload.? Plan: -Start Lasix 20mg IV BID for now- reassess volume status daily -Obtain TTE -Ins and outs q4 -Daily weights -Monitor electrolytes closely -Cardiac telemetry? Endometrial cancer (C54.1):??Follows with [facility]ician Non Invasive Cardiologist Oncology. Stage IIIc endometrial cancer [s/p TLH, BSO, PLND and??chemo??with 6 cycles of carbo/taxol,??pembro,??doxil; currently on letrozoleand everolimus as chemo maintenance (started 02/18/2024) which??were recently stopped secondary to g eneralized rash], See their note for further details. She was??recently started on Prednisone taperfor the rash. She has been getting Echos recently with start of new chemotherapy which have been within normal range- though unable to assess for diastolic function.? Plan: -Will continue her Prednisone taper which she reports will be at 30mg for 5 days starting 04/30 -Reached out to Physician Non Invasive Cardiologist Oncology service- agree with medicine admit and they will follow along ?? HLD (hyperlipidemia) (E78.5):??Resume home Crestor ?? HTN (hypertension) (I10):??Resume Losartan 50mg in place of home Olmesartan 20mg? Atrial fibrillation (I48.91):??Resume home Diltiazem, Metoprolol, Eliquis? SHANNAN: C/w CPAP ?? Leukocytosis: WBC to 16, likely in setting of steroid use. No signs of infection. Afebrile. UA normal. Flu/COVID/RSV negative. CTM. ?? Quality Metrics: VTE Prophylaxis:??Eliquis Ongoing Medical Necessity:??IV diuresis, echo Code Status:??Full? Patient discussed with Dr Maximilian Wallace MD PGYIII Internal Medicine? Histories Allergies Allergies ?(Active and Proposed Allergies Only) morphine? (Severity: Unknown severity, Onset: Unknown) ?Reactions: Vomiting codeine? (Severity: Unknown severity, Onset: Unknown) ?Reactions: Vomiting ? 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 Past Surgical History No surgery history documented. ? Social History Alcohol Details:??Use: Never. Employment/School Details:??Status: Retired. Exercise Details:??Self assessment: Fair condition. ??Regular exercise: No. Home/Environment Details:??Living situation: Home/Independent. ??Lives with: Spouse. Nutrition/Health Details:??Diet: Regular. Sexual Details:??Sexually involved in last 6 months: No. Substance Abuse Details:??Use: Never. Tobacco Details:??Use: Never (less than 100 in lifetime). Electronic Cigarette/Vaping Details:??Electronic Cigarette Use: Never. ? Family History No Family History documented. ? Medications Home Medications apixaban (Eliquis 5 mg oral tablet)??1 tab(s) 5 Milligram By Mouth 2 times a day Cholecalciferol (Vitamin D3 1000 intl units oral capsule)??1 capsule 25 Microgram By Mouth Daily Cyanocobalamin (cyanocobalamin 500 mcg oral tablet)??1 tab(s) 500 Microgram By Mouth Daily Gabapentin (gabapentin 300 mg oral capsule)??300 Milligram 1 capsule By Mouth Daily at bedtime for 30 Days Loratadine (loratadine 10 mg oral capsule)??1 capsule 10 Milligram By Mouth Daily Magnesium Gluconate??By Mouth 2 times a day Metoprolol (metoprolol 25 mg oral tablet)??25 Milligram 1 tablet By Mouth 2 times a day Olmesartan (olmesartan 20 mg oral tablet)??1 tab(s) 20 Milligram By Mouth Daily PredniSONE (predniSONE 10 mg oral tablet)??See Instructions 4 tabs by mouth in the morning x 5 days, 3 tabs by mouth in the morning x5 days, 2 tabs by mouth in the morning x3 days, 1 tab by mouth in the morning x3 days, then 1/2 tab by mouth in the morning x3 days. Currently taking 30 mg for 5 daysstarting 04/30 Rosuvastatin (Crestor 10 mg oral tablet)??TAKE 1 TABLET DAILY ? Inpatient Medications Medications (20) Active SCHEDULED: (12) Apixaban 5 mg Tablet (Eliquis) ??5 mg, By Mouth, 2 times a day Diltiazem 180 mg/24 hour CD Capsule (diltiazem 180 mg/24 hours oral capsule, extended release) ??180 mg, By Mouth, Daily Furosemide Inj (Lasix ??Inj) ??20 mg 2 mL, IV Push Slowly, 2 times a day Gabapentin 300 mg Capsule (gabapentin 300 mg oral capsule) ??300 mg, By Mouth, Daily at bedtime Losartan 50 mg Tablet (losartan 50 mg oral tablet) ??50 mg, By Mouth, Daily Magnesium Sulfate 2 Gm /50 mL (Magnesium Sulfate IVPB) ??2 Gm 50 mL, IVPB, Once Metoprolol 25mg Tablet (metoprolol 25 mg oral tablet) ??25 mg, By Mouth, 2 times a day NaCl 0.9% Flush 3ml (NaCL 0.9% Flush) ??3 mL, IV Push, Every 8 hours PredniSONE 20 mg Tablet (predniSONE 20 mg oral tablet) ??30 mg, By Mouth, Daily Rosuvastatin 5 mg Tablet (Crestor 5 mg oral tablet) ??10 mg, By Mouth, Daily Vitamin B12 100 mcg Tablet (cyanocobalamin 1000 mcg oral tablet) ??500 mcg, By Mouth, Daily Vitamin D 1000 IU Tablet (Vitamin D3 1000 intl units oral tablet) ??25 mcg, By Mouth, Daily CONTINUOUS: (0) PRN: (8) Acetaminophen 325 mg Tablet (Acetaminophen Tablet) ??650 mg, By Mouth, Every 4 hours Dextromethorphan-Guaifenesin 20 mg-200 mg/10 mL Liqu UD (Robitussin DM Liquid) ??10 mL, By Mouth, Every 4 hours Docusate Sodium 100 mg Capsule (Docusate Sodium Capsule) ??100 mg 1 capsule, By Mouth, 2 times a day Melatonin 3 mg Tablet (Melatonin Tablet) ??3 mg, By Mouth, Daily at bedtime NaCl 0.9% Flush 3ml (NaCL 0.9% Flush) ??3 mL, IV Push, Every 8 hours Polyethylene Glycol 17 Gm Powder (MiraLax Powder) ??17 Gm 1 pack/packet, By Mouth, Daily Senna Tablet ??8.6 mg 1 tablet, By Mouth, 2 times a day Simethicone 80 mg Chewable Tablet (Simethicone Tablet) ??80 mg, Chew, 3 times a day ? Results Recent Labs BLOOD COUNT & DIFF WBC 16.1 k/mm3 (High)?? 04/29/2024 10:55 RBC 4.10 m/mm3 (Low)?? 04/29/2024 10:55 Hgb 11.8 Gm/dL ()?? 04/29/2024 10:55 Hct 37.3 % ()?? 04/29/2024 10:55 MCV 91.0 femtoliters ()?? 04/29/2024 10:55 MCH 28.8 pg ()?? 04/29/2024 10:55 MCHC 31.6 Gm/dL (Low)?? 04/29/2024 10:55 Platelet Count 221 k/mm3 ()?? 04/29/2024 10:55 RDW-SD 65.9 femtoliters (High)?? 04/29/2024 10:55 MPV 10.2 femtoliters ()?? 04/29/2024 10:55 Nucleated RBC (Automated) 0.1 #/100 WBC'S ()?? 04/29/2024 10:55 Abs. NRBC 0.0 k/mm3 ()?? 04/29/2024 10:55 Abs. Neut 14.3 k/mm3 (High)?? 04/29/2024 10:55 Abs. Lymph 0.6 k/mm3 (Low)?? 04/29/2024 10:55 Abs. [place] 1.0 k/mm3 (High)?? 04/29/2024 10:55 Abs. Eo 0.0 k/mm3 ()?? 04/29/2024 10:55 Abs. Baso 0.0 k/mm3 ()?? 04/29/2024 10:55 Neut % 88.7 % (High)?? 04/29/2024 10:55 Lymph % 3.6 % (Low)?? 04/29/2024 10:55 [place] % 6.0 % ()?? 04/29/2024 10:55 Eos % 0.2 % ()?? 04/29/2024 10:55 Baso % 0.2 % ()?? 04/29/2024 10:55 Imm Gran 1.3 % ()?? 04/29/2024 10:55 Abs. Imm Gran 0.2 k/mm3 ()?? 04/29/2024 10:55 ?? CARDIAC Nt-Probnp 3037 pg/mL (High)?? 04/29/2024 14:16 High Sensitivity Troponin (HSTnT) 8 ng/L ()?? 04/29/2024 14:16 ?? CHEM GENERAL Sodium 138 mmol/L ()?? 04/29/2024 10:55 Potassium 3.5 mmol/L (Low)?? 04/29/2024 10:55 Chloride 99 mmol/L ()?? 04/29/2024 10:55 Bicarbonate Level 25 mmol/L ()?? 04/29/2024 10:55 Anion Gap 14 mmol/L ()?? 04/29/2024 10:55 Glucose Level 198 mg/dL (High)?? 04/29/2024 10:55 BUN 19 mg/dL ()?? 04/29/2024 10:55 Creatinine-Blood 0.84 mg/dL ()?? 04/29/2024 10:55 Estimated GFR Creatinine 71 ML/MIN/1.73 M2 ()?? 04/29/2024 10:55 Calcium 9.5 mg/dL ()?? 04/29/2024 10:55 Magnesium 1.8 mg/dL ()?? 04/29/2024 14:16 ?? HEME OTHER Hold Blue Top SPECIMEN DISCARDED AFTER 4 HOURS. ()?? 04/29/2024 10:55 ?? MISC. CHEMISTRY Hold Gel Top SPECIMEN DISCARDED AFTER 1 WEEK ()?? 04/29/2024 10:55 ?? UA/URINALYSIS Appear/Color, Urine COLORLESS ()?? 04/29/2024 12:30 Specific [place], Urine 1.006 ()?? 04/29/2024 12:30 pH, Urine 6.5 ()?? 04/29/2024 12:30 Albumin, Urine NEGATIVE ()?? 04/29/2024 12:30 Glucose, Urine 3+ (Abnormal)?? 04/29/2024 12:30 Ketones, Urine NEGATIVE ()?? 04/29/2024 12:30 Bilirubin, Urine NEGATIVE ()?? 04/29/2024 12:30 Hemoglobin, Urine NEGATIVE ()?? 04/29/2024 12:30 Nitrite, Urine NEGATIVE ()?? 04/29/2024 12:30 Leukocyte, Urine NEGATIVE ()?? 04/29/2024 12:30 Urobilinogen NORMAL mg/dL ()?? 04/29/2024 12:30 WBC's, Urine 1 /HPF ()?? 04/29/2024 12:30 RBC's, Urine 1 /HPF ()?? 04/29/2024 12:30 Squamous Epith 1 /HPF ()?? 04/29/2024 12:30 ?? VIROLOGY Influenza A PCR NEGATIVE ()?? 04/29/2024 10:55 Influenza B PCR NEGATIVE ()?? 04/29/2024 10:55 RSV PCR NEGATIVE ()?? 04/29/2024 10:55 COVID-19 PCR Result NEGATIVE ()?? 04/29/2024 10:55 ? EKG study * Event Display: ECG 12-Lead Authored Date: Please click on pdf link to open report * Event Display: ECG 12-Lead Authored Date: Ventricular Rate: 94 BPM QRS Duration: 70 ms Q-T Interval: 356 ms QTC Calculation(Bazett): 445 ms R [place]: 75 degrees T [place]: 80 degrees Atrial fibrillation Low voltage QRS Septal infarct , age undetermined Abnormal ECG Confirmed by KEITH GERBER ([id number]) on 04/29/2024 12:08:18 PM [place]: KEITH GERBER Heart * Event Display: Echocardiogram - Complete Authored Date: [id number] Transthoracic Echocardiography Report (TTE) Patient Demographics Patient Name LUCÍA FRAGOSO Date of Study 05/01/2024 Corporate Gender Female Facility Race .[id number] Ethnicity Date of 1945 Height: 59.06 inches Age 78 year(s) Weight: 149.93 pounds Accession Number [id number] BSA: 1.63 m2 Room Number [id number] BMI: 30.23 kg/m2 Referring Rodrigo Marroquin MD Interpreting Katerina Garcia Physician Physician Business Operations Manager Brenda Samsonise Fellow Sandy Phillip DO Indications Heart failure. Clinical History Congestive heart failure. Hypertension. Hyperlipidemia. Obesity. SHANNAN/CPAP Atrial fibrillation. Endometrial Ca/Chemo Study Data Type of Study TTE procedure:Echo Complete-Doppler, Colorflow, M-Mode. Study Date05/01/2024 Start Time: 08:55 AM Study Location: [facility] [place] Echo Study Status: Bedside Patient Status: Routine Technical Quality: Fair due to body habitus. Blood Pressure:149/82 mmHg EKG: Atrial fibrillation HR: 147 bpm 2D Measurements LV Diastolic Dimension: 4.5 cm LV Systolic Dimension: 2.9 cm LV Septum Diastolic: 1 cm LV PW Diastolic: 0.9 cm AO Root Dimension: 3.1 cm LA Dimension: 4 cm LVOT Stroke Volume: 40.51 ml LVOT: 2 cm Stroke Volume Index24.85 ml/m2 Ascending Aorta:3.3 cm Cardiac Index:3.65 l/min/m2 Doppler Measurements AV Peak Velocity: 154 cm/s MV Peak E-Wave: 96.2 cm/s AV Peak Gradient: 9.49 mmHg MV P1/2t: 65 msec LVOT Peak Velocity: 74.4 cm/s LVOT VTI12.9 cm MV Deceleration Time: 221 msec MV Area (PHT): 3.38 cm2 TR Velocity:244 cm/s TR Gradient:23.81 mmHg PV Peak Velocity: 91.3 cm/s PV Peak Gradient: 3.33 mmHg Cardiac Anatomy Left Ventricle/Interventricular Septum The left ventricular size is normal. Left ventricular wall thickness is normal. The LV systolic function is mildly reduced . The left ventricular ejection fraction is 47 % by Moses's biplane. There is mild global hypokinesis of the left ventricle. Unable to assess diastolic function due to atrial fibrillation . Left Atrium/Interatrial Septum The left atrium is severely dilated. Aortic Valve The aortic valve is trileaflet. The aortic valve is mildly calcified. There is no aortic stenosis or insufficiency. Mitral Valve There is mild mitral annular calcification. The mitral valve appears mildly thickened. There is trace mitral regurgitation. Aorta The ascending aorta and aortic root are normal in size. Right Ventricle The right ventricular size appears grossly normal, function is reduced. Right Atrium The right atrium is dilated. Pulmonic Valve The pulmonic valve appears grossly normal. There is trace pulmonic regurgitation. Tricuspid Valve The tricuspid valve is grossly normal. There is trace regurgitation. Pumonary Artery The pulmonary artery systolic pressure estimation is 25-30 mmHg. Venous Structures The inferior vena cava size is normal with normal inspiratory collapse. The central venous pressure estimation is 3 mmHg. Pericardium/Extracardiac There is no significant pericardial effusion. Summary The left ventricular size is normal. Left ventricular wall thickness is normal. The LV systolic function is mildly reduced . The left ventricular ejection fraction is 47 % by Moses's biplane. There is mild global hypokinesis of the left ventricle. Unable to assess diastolic function due to atrial fibrillation . The right ventricular size appears grossly normal, function is reduced. Severe biatrial dilation. No significant valvular abnormalities. No pericardial effusion. Comparison Comparison is made to the study of March 10, 2024. The left ventricular ejection fraction looks slightly worse. Otherwise, no significant change. Signature Snapshots * Event Display: Echocardiogram - Complete Authored Date: Cardiology * Event Display: Cardiac Rhythm Strips Authored Date: * Event Display: Cardiac Rhythm Strips Authored Date: * Event Display: Cardiac Rhythm Strips Authored Date: * Event Display: Cardiac Rhythm Strips Authored Date: * Event Display: Cardiac Rhythm Strips Authored Date: Hospital Progress note * Margaret Munson RN: PERFORM, SIGN, VERIFY Event Display: Progress Note Hospital Authored Date: Patient: LUCÍA FRAGOSO Age: 78 years Sex: Female : 1945 Associated Diagnoses: None Author: Margaret Munson RN Findings Problem Related to Alteration in Cardiac Function (new) : Alteration in Cardiac Function/new 05/02/2024 9:00 EST Alteration in Cardiac Status Related to Heart failure Goals & Outcomes, Cardiac Status Pt will resume/maintain adequate cardiac output, Pt will resume/maintain adequate hemodynamic status, Pt will resume/maintain adequate respiratory function, Pt will resume/maintain intact neuro function, Pt will maintain adequate GI/ function appropriate for pt, Pt will maintain adequate nutrition status, Pt/caregiver will state understanding of diagnosis, Pt/caregiver will state strategies to reduce risk factors Cardiac Interventions Implemented Assess/monitor cardiac status, Assess/monitor neuro status, Assess/monitor respiratory status, Assess for tolerance of IV infusions; verify rate & dose, Call/Report variances in ECG to provider, Document & Monitor O2 Sats; Administer O2 as ordered, Ensure adequate caloric intake, If no bowel movement in 3 days activate bowel regime, Monitor & document daily weight, Monitor anticoagulation values, Monitor ECG w/administration of antiarrhythmics (CO 13.420), Obtain 12 Lead ECG and CXR as ordered, Prep pt for treatments & procedures, Teach/encourage deep breath & cough exercises, Teach/encourage use of incentive spirometer, Team conversation regarding appropriate level of care, Turn & reposition Q2 hours per activity restrictions, Useadjunctive therapies per Standards of Practice Goals/Interventions, Cardiac Yes Cardiac, Problem Start 04/30/2024 8:22 Reviewed Plan with, Cardiac Status Patient, Children Patient Progression, Cardiac Status Patient progressing according to plan . Narrative/Incidental pt AOx4, Afib on tele denies chest pain and chest discomfort. Vitals stable, on RA. Ambulating in room independently no distress noted, and steady gait. Took medication without difficulty. Plan is for discharge this afternoon. Pt is currently sitting in bedside chair with son at bedside. . Discharge Information Pulmonary Rehab Discharge : Pulmonary Rehab Discharge Status 05/01/2024 23:12 EST CPAP/BiPAP Mask Type Nasal CPAP/BiPAP Mask Size Medium 05/01/2024 1:34 EST CPAP/BiPAP Mask Type Nasal CPAP/BiPAP Mask Size Small 04/30/2024 22:54 EST CPAP/BiPAP Mask Type Nasal * Margarita Breaux RN: PERFORM, SIGN, VERIFY Event Display: Progress Note Hospital Authored Date: [id number] Patient: LUCÍA FRAGOSO Age: 78 years Sex: Female : 1945 Associated Diagnoses: None Author: Saeid MAJOR, Margarita Puentes Findings Problem Related to Alteration in Cardiac Function (new) : Alteration in Cardiac Function/new 05/01/2024 22:00 EST Alteration in Cardiac Status Related to Heart failure Goals & Outcomes, Cardiac Status Pt will resume/maintain adequate cardiac output, Pt will resume/maintain adequate hemodynamic status, Pt will resume/maintain adequate respiratory function, Pt will resume/maintain intact neuro function, Pt will maintain adequate GI/ function appropriate for pt, Pt will maintain adequate nutrition status, Pt/caregiver will state understanding of diagnosis, Pt/caregiver will state strategies to reduce risk factors Cardiac Interventions Implemented Assess/monitor cardiac status, Assess/monitor neuro status, Assess/monitor respiratory status, Document & Monitor O2 Sats; Administer O2 as ordered, Ensure adequate caloric intake, If no bowel movement in 3 days activate bowel regime, Monitor & document daily weight, Teach/encourage deep breath & cough exercises, Evaluate pt for proarrhythmic effects of medications, Management of Atrial Fibrillation, Monitor electrolytes and replace as ordered, Monitor VS with each burst of rhythm/rate disturbance, Monitor VS with rhythm/rate disturbance BH Goals/Interventions, Cardiac Yes Cardiac, Problem Start 04/30/2024 8:22 Reviewed Plan with, Cardiac Status Patient Patient Progression, Cardiac Status Patient progressing according to plan . Nursing Data Vital Signs : VITAL SIGNS SECTION 05/02/2024 2:44 EST Early Warning Score 4.00 05/02/2024 2:44 EST Temperature 97.7 DegF Temperature Route Oral Pulse Rate 81 bpm Respiratory Rate 18 br/min Systolic Blood Pressure 170 mm Hg H Diastolic Blood Pressure 85 mm Hg H Blood pressure sites Arm, right Mean Arterial Pressure 113 mm Hg Pulse Pressure 85 mm Hg Oxygen Saturation 95 % Mode of Delivery (Oxygen) CPAP . Evaluation Pt alert and oriented, bp's elevated at times. Tele Afib. Pt indep;. in room without complication, denies pain./sob. Poc at hs 241. No concerns overnight, plan for probable d/c today. . * Sierra Staples: PERFORM, SIGN, VERIFY Event Display: Progress Note Hospital Authored Date: [id number] Patient: LUCÍA FRAGOSO Age: 78 years Sex: Female : 1945 Associated Diagnoses: None Author: Sierra Staples Findings Problem Related to Alteration in Cardiac Function (new) : Alteration in Cardiac Function/new 05/01/2024 11:00 EST Alteration in Cardiac Status Related to Heart failure Goals & Outcomes, Cardiac Status Pt will resume/maintain adequate cardiac output, Pt will resume/maintain adequate hemodynamic status, Pt will resume/maintain adequate respiratory function, Pt will resume/maintain intact neuro function, Pt will maintain adequate GI/ function appropriate for pt, Pt will maintain adequate nutrition status, Pt/caregiver will state understanding of diagnosis, Pt/caregiver will state strategies to reduce risk factors Cardiac Interventions Implemented Assess/monitor cardiac status, Assess/monitor neuro status, Assess/monitor respiratory status, Assess for tolerance of IV infusions; verify rate & dose, Call/Report variances in ECG to provider, Document & Monitor O2 Sats; Administer O2 as ordered, Ensure adequate caloric intake, If no bowel movement in 3 days activate bowel regime, Monitor & document daily weight, Monitor anticoagulation values, Monitor ECG w/administration of antiarrhythmics (CO 13.420), Obtain 12 Lead ECG and CXR as ordered, Prep pt for treatments & procedures, Teach/encourage deep breath & cough exercises, Teach/encourage use of incentive spirometer, Team conversation regarding appropriate level of care, Turn & reposition Q2 hours per activity restrictions, Useadjunctive therapies per Standards of Practice Goals/Interventions, Cardiac Yes Cardiac, Problem Start 04/30/2024 8:22 Reviewed Plan with, Cardiac Status Patient Patient Progression, Cardiac Status Plan Initiation . Nursing Data Cardiac Data. : Cardiac Data. 05/01/2024 11:00 EST Cardiac Rhythm Atrial fibrillation property assessment monitor Yes Cardiovascular WNL except . Narrative/Incidental A&OX 3, VSS, A-fib on tele, no complaints of chest pain/discomfort & SOB. Pt on RA, voidingin hat in bathroom, LBM 04/30. OOB independently. Pt had echocardiogram today, see flowsheets. Pt resting comfortably in bed, bed locked and in lowest position, call peñaloza within reach. . Discharge Information Pulmonary Rehab Discharge : Pulmonary Rehab Discharge Status 05/01/2024 1:34 EST CPAP/BiPAP Mask Type Nasal CPAP/BiPAP Mask Size Small 04/30/2024 22:54 EST CPAP/BiPAP Mask Type Nasal Consult note * Deisi Yancey MD: PERFORM Event Display: Consultation Note Authored Date: [id number] Patient: ??LUCÍA FRAGOSO ? Age:??78 Years?Sex:??Female?:??1945?? Referring Provider Rodrigo RASHID, Tracy Gray DO Chief Complaint From home. Acute onset SOB at home this morning. O2 on EMS arrival 88% RA, 2lpm improved to 95%. Cough x2 days, more productive today. History of Present Illness Lucía Fragoso, 69yo with stage IIIC endometrial cancer s/p TLH, BSO, PLND on 06/17/2022??and??chemo??with 6 cycles of carbo/taxol,??pembro,??doxil for??disease progression. She is??currently on letrozole and everolimus as chemo maintenance (started 02/18/2024). This medications were recently stopped secondary to generalized rash. She is using CeraVe for the rash but it is not itchy at this time. She is currently on prednisone taper. ?? Patient admitted to medicine service with acute heart failure. SOB??started yesterday night, she reports cough for the past 2 days. She was satting 88 on RA at home. On arrival to the ED, chest xray showing pulmonary edema and pleural effusion. WBC 16, hgb 11.8/37.3, platelets??221, ANC??14.3, proBNP??3037. Trop 8, EKG??with known??afib. Negative respiratory??panel. She got 20mg IV lasix x2 with good diuresis, she is currently satting 95% on 2 liters.? She denies any fevers, chest pain, urinary symptoms, vaginal bleeding,??abdominal pain, n/v, diarrhea, constipation, le swelling or redness.? 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 TREATMENT: -TRH, BSO, pelvic LND 06/17/22 -Carboplatin AUC 5/taxol 135 mg/m2 07/10/22-present -CT post cycle [address] from prior other than one lymph node right external iliac node 1.2->1.7 cm -CT PET??post cycle 6 - concerning peritoneal nodule -biopsy consistent with endometrial cancer -initiated Pembro 12/02/22, CT PET 02/02/23 with [place] after 3 cycles-04/28/23 (8 cycles), progression on CT scan and vaginal mets on exam -Doxil 05/19/23, had a reaction and was rechallenged on 05/21 at slower rate with additional premeds and tolerated well -CT scan 10/06- mixed response, pelvic MRI Oct 2023, stable -CT 01/22/24 progression -Everolimus 5mg/Letrozole 2.5mg initiated on 02/18/24 Review of Systems All reviewed and negative Physical Exam Vitals & Measurements T:??97.9?F?? HR:??68??(Peripheral)?? RR:??18?? BP:??168/98?? SpO2:??96%?? HT:??150??cm?? WT:??70.9??kg?? BMI:??31.51?? General: resting comfortably in bed, satting 90% on RA and improves to 95% with 2L NC Respiratory: Respirations non-labored and non-rapid, mild crackles bilaterally on lung bases Heart: Regular rate and rhythm Abdomen: non-tender, non-distended, soft. Yeast rash noted below pannus on LLQ.?? Psychiatric: Normal affect, answers questions appropriately Extremities: No edema, erythema or tenderness to palpation Assessment/Plan Assessment:??Lucía Fragoso, 69yo with stage IIIC endometrial cancer s/p TLH, BSO, PLND. Currently on maintenance chemotherapy with everolimus/letrozole which was recently stopped secondary to skin rash. She was admitted to medicine service with acute onset heart failure. She was given Lasix??20??mgIV x2. Currently satting??95% with 2L NC.? In terms of her rash, she reports it is improving. She is very hesitant??about trying letrozole again and would like to discuss further options. I reviewed with her that everolimus was likely the cause of her rash and that letrozole has minimal side effects and should consider continuation of letrozole once her acute issues are resolved.? In terms??of her heart??failure,??patient??had a recent echo??on 03/2024 with EF of 55-60%. We agreewith recommendation from medicine to??repeat echo.??We??appreciate??treatment of her heart failure by medicine team as primary team.? Endometrial cancer (C54.1):? - Encourage to restart letrozole once she has recovered from acute event? Yeast dermatitis (B37.2):? - Recommend nystatin powder? Acute CHF (I50.9):? - managed by primary team? Drug rash (L27.0):? - likely secondary to everolimus?? - Continue prednisone taper and hydrating cream? Atrial fibrillation (I48.91):? . ?? HTN (hypertension) (I10):??. ?? 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 Home Medications apixaban: 5 mg = 1 tablet, By Mouth, 2 times a day Cholecalciferol: 25 mcg = 1 capsule, By Mouth, Daily Cyanocobalamin: 500 mcg = 1 tablet, By Mouth, Daily Diltiazem Gabapentin: 300 mg = 1 capsule, By Mouth, 3 times a day Loratadine: 10 mg = 1 capsule, By Mouth, Daily Magnesium Gluconate: By Mouth, 2 times a day Metoprolol: 25 mg = 1 tablet, By Mouth, 2 times a day Olmesartan: 20 mg = 1 tablet, By Mouth, Daily PredniSONE: See Instructions, 4 tabs by mouth in the morning x 5 days, 3 tabs by mouth in the morning x5 days, 2 tabs by mouth in the morning x3 days, 1 tab by mouth in the morning x3 days, then 1/2 tab by mouth in the morning x3 days Rosuvastatin: TAKE 1 TABLET DAILY Allergies codeine??(Vomiting) morphine??(Vomiting) Social History Alcohol Use: Never. Electronic Cigarette/Vaping Electronic Cigarette Use: Never. Employment/School Status: Retired. Exercise Self assessment: Fair condition. Regular exercise: No. Home/Environment Living situation: Home/Independent. Lives with: Spouse. Nutrition/Health Diet: Regular. Sexual Sexually involved in last 6 months: No. Substance Abuse Use: Never. Tobacco Use: Never (less than 100 in lifetime). Family History No family history recorded. * Bonilla RASHID, Cecilia Echevarria: PERFORM Event Display: Consultation Note Authored Date: [id number] Attending attestation: I have seen and evaluated this patient.?? I have discussed the case and its management with the resident and agree with the findings and plan as documented in the resident's note ?? suspect current admission due to steroid effect, less likely chemo given rapid degree of improvement. she has been off chemo more than she has been on and??I believe the risk of chemo related cardiacdysfunction is low.??would proceed with TTE as planned to evaluate EF. if ongoing O2 requirement orany resp complaints would recommend CT PE ?? we discussed treatment plans moving forward and she is reluctant to trial letrozole as she is worried it caused rash. Everolimus very commonly causes a rash and the rash reappeared when she resumed this drug. I would recommend trial of letrozole when her symptoms improve as I believe she will tolerate it well. We will continue to discuss outpatient ?? We will continue to follow peripherally but please reach out with any questions or anything we may do ?? Cecilia Crystal MD Gynecologic Oncology Attending Note * Margaret Munson RN: PERFORM Event Display: Discharge/Transfer Note Hospital Authored Date: [id number] Nursing Discharge Note Entered On: 05/02/2024 13:33 EST Performed On: 05/02/2024 13:30 EST by Margaret Munson RN Nursing Discharge Note 2 Discharge Time : 05/02/2024 13:30 EST Discharge Level of Care at Discharge : Home/Longterm/Foster Care Patient Left Unit Via : Wheelchair Patient Accompanied Off Unit with : Responsible adult DC Instructions Provided & Signed by Pt : Yes Patient Understands D/C Instructions : Yes Patient Instructions Discharge Signed : Yes Did Pt have Specialty Bed or Wound Vac : No Jeimy MAJOR, Margaret - 05/02/2024 13:32 EST * Pato , Silvia: PERFORM, MODIFY, MODIFY, MODIFY Rebel Bassett MD: MODIFY Event Display: Discharge/Transfer Note Hospital Authored Date: [id number] Patient: ??NALDO, LUCÍA ? Age:??78 Years?Sex:??Female?:??1945?? 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) Drug rash (L27.0) Atrial fibrillation (I48.91) HTN (hypertension) (I10) HLD (hyperlipidemia) (E78.5) Endometrial cancer (C54.1) Yeast dermatitis (B37.2) T2DM (type 2 diabetes mellitus) (E11.9) _ Discharge Medications apixaban (Eliquis 5 mg oral tablet)??1 tab(s) 5 Milligram By Mouth 2 times a day Cholecalciferol (Vitamin D3 1000 intl units oral capsule)??1 capsule 25 Microgram By Mouth Daily Cyanocobalamin (cyanocobalamin 500 mcg oral tablet)??1 tab(s) 500 Microgram By Mouth Daily dapagliflozin (dapagliflozin 10 mg oral tablet)??10 Milligram By Mouth Daily Durable Medical Equipment (Deltec Cozmo Glucometer)??See Instructions Please check glucose levels daily and follow up with PCP Gabapentin (gabapentin 300 mg oral capsule)??300 Milligram 1 capsule By Mouth Daily at bedtime for 30 Days Loratadine (loratadine 10 mg oral capsule)??1 capsule 10 Milligram By Mouth Daily Magnesium Gluconate??By Mouth 2 times a day Metoprolol (metoprolol 25 mg oral tablet, extended release)??25 Milligram 1 tablet By Mouth Daily Olmesartan (olmesartan 20 mg oral tablet)??1 tab(s) 20 Milligram By Mouth Daily PredniSONE (predniSONE 10 mg oral tablet)??See Instructions 4 tabs by mouth in the morning x 5 days, 3 tabs by mouth in the morning x5 days, 2 tabs by mouth in the morning x3 days, 1 tab by mouth in the morning x3 days, then 1/2 tab by mouth in the morning x3 days. Currently taking 30 mg for 5 daysstarting 04/30 Rosuvastatin (Crestor 10 mg oral tablet)??TAKE 1 TABLET DAILY ? Medications Started Dapagliflozin 10 mg PO Medications Discontinued none Doses Changed none PCP Follow-Up/Heads-Up Patient seen at [facility] for CHF exacerbation likely secondary to recent prednisone use for rash induced by chemo agent. She was diuresed with IV lasix and is being discharged to f/u with PCP to see if she will need diuretics further outpatient.??She had an echo done which showed EF of 47%, worsened from prior echo in March. She will be discharged on Dapagliflozin 10 mg. A1c noted to be 9%, could be underlying diabetes vs hyperglycemia secondary to recent steroid use. Please follow up with repeat A1c and discussion of starting diabetes medication outpatient if needed.??Attempted to send??patient with glucometer but patient has medicare B which would cover her supplies but we do not bill medi B at [facility]- she would need this filled at her home pharmacy.?Her olmesartan was held for 2 days after discharge due to KARTHIK (likely from diuresing), she was told to continue olmesartan 2 days after discharge, and to have repeat BMP done within 1 week with PCP to monitor creatinine. Future Appointments 2024 10:00 AM EDT ?? With: Kavitha MARY, Amna Edwards Where: [facility] [address] [place] [address] [place] [address]- Status: Pending Hospital Course 78-year-old female with past medical history of stage IIIc endometrial cancer s/p TLH, BSO, PLND and chemo with 6 cycles of carbo/taxol, pembro, doxil; currently on letrozole and everolimus as chemo maintenance (started 02/18/2024) which were recently stopped secondary to generalized rash, HTN, obesity, osteopenia, atrial fibrillation on Eliquis, SHANNAN on CPAP who presented to the hospital with a history of worsening shortness of breath and orthopnea for a few days. In ED, the patient was noted to have acute hypoxic respiratory failure and was hypertensive. Labs without infectious etiology, chest x-ray notable for pulmonary edema and pleural effusions. She has been receiving Lasix with excelle nt clinical response to her symptoms. Patient with newly diagnosed with heart failure exacerbation,with recent echo done at the beginning of March with preserved EF but evidence of underlying diastolic dysfunction with a severely dilated left atrium, dilated right atrium normal left ventricular wall size but unable to assess diastolic dysfunction due to atrial fibrillation. Also found to have A1c of 9 suggesting new diagnosis of T2DM vs ongoing hyperglycemia from her recent history of prednisone use. Her previous echo in the beginning of March does have evidence of diastolic heart failure with large atria -but her there is no evidence of wall motion abnormality or reduced ejection fraction to suggest a chemotherapy induced cardiomyopathy. She has been without RVR, nor does she have symptoms of tachycardia in the outpatient setting to suggest she has a new tachycardia mediated cardiomyopathy. Likewise, she has no history to suggest she has been having ischemia to cause a new cardiomyopathy. The only notable change in the patient's care is that she has been recently placed back on steroids for a rash in her arm. It is possible this has caused a degree of volume retention leading her into an exacerbation of an underlying previously silent HFpEF. Patient had echo done 05/01 which showed worsened EF of 47% (rest of summary below). As pt now appears euvolemic, discontinued IV diuresis and transition to PO Lasix 20. Added on dapagliflozin 10 mg daily as well for CHF and likely DM. Hospital course CCB hypokalemia notable for K 3.1 which was repleted. Patient is now hemodynamically stable, euvolemic, and safe for discharge home. ?? Echo 05/01/24 Summary ??The left ventricular size is normal. Left ventricular wall thickness is ??normal. The LV systolic function is mildly reduced . The left ventricular ??ejection fraction is 47 % by Moses's biplane. There is mild global ??hypokinesis of the left ventricle. Unable to assess diastolic function due ??to atrial fibrillation . The right ventricular size appears grossly normal, function is reduced. Severe biatrial dilation. No significant valvular abnormalities. No pericardial effusion. Comparison ??Comparison is made to the study of March 10, 2024. The left ventricular ??ejection fraction looks slightly worse. Otherwise, no significant change. ?? Acute on chronic HFpEF (I50.9) Reccs: ??-Monitor for lower extremity swelling, not discharging on any diuretic as pt is euvolemic, PCP f/u ??-Dapagliflozin 10 mg -Hold home olmesartan 20 mg for 2 days after diascharge secondary to KARTHIK, pt will resume olemsartan05/05 and have repeat BMP done in??1 week with PCP??to monitor kidney function ? Drug rash (L27.0)??- hx recent rash of arm from her chemotherapy. Since resolved w/ burst prednisone, currently tapering Reccs: - Will continue taper per her GynOnc teams plan 20 mg 05/01-, 10 mg 05/04-, then 5 mg 05/07- ?? Hyperglycemia (R73.9)??- High A1c 9, likely undiagnosed t2dm exacerbated by steroids. Reccs: - PCP f/u rec repeat A1c in 3 months following steroids. - Added on dapagliflozin 10 mg for glucose control + HFpEF. - Discussed the diagnosis at length with the patient.?? She wanted to start the dapa only and not asecond agent.?? Glucometer copay high, so will defer to outpatient followup.?? Objective Temperature?97.7 ?(07:59) Systolic Blood Pressure?155 ?(08:40) Diastolic Blood Pressure?93 ?(08:40) Pulse?89 ?(08:40) SpO2?96 ?(07:59) Respiratory Rate?18 ?(07:59) . Physical Exam General Appearance: The patient appears well, NAD Cardiovascular: S1 and S2 heard with no M/R/G.?? No JVD noted.?? Respiratory: On room air??breathing comfortably.?? Lungs are fairly clear bilaterally GI: Soft. Nontender and nondistended. Normal bowel sounds present throughout abdomen.?? MS:??No??edema to LE Neuro: ??No slurred speech. ??Patient seen moving their upper and lower extremities independently. Psych: Alert and oriented x3. Appropriate and pleasant. Consultants cardiology Patient Education Titles [employer] Patient Education - Heart Failure Discharge Instructions for Heart Failure?? [employer] Patient Education - How to Check Your Blood Sugar?? [employer] Patient Education - Furosemide?? [employer] Patient Education - Dapagliflozin?? Follow-Up Appointments Added Follow Up ?Time Frame ?Comments Po Shelia RASHID Patient Instructions You were seen at [facility]??for complaints of shortness of breath and ultimately was diagnosed with a heart failure exacerbation.?? You were diuresed with IV Lasix??which allowed you to??feel improvement in her symptoms??with good urine output.??You had an echocardiogram??(ultrasound of your heart) done??while you were inpatient which showed??a slightly lower ejection fraction of 47%, compared to your prior echo from March.??Your A1c??was elevated at 9%,??you should??follow-up with your primary care doctor regarding??a follow-up A1c outpatient??and possibly beginning diabetes medications if needed.?? 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 If you??notice swelling in your lower extremities or worsening shortness of breath, you should follow upwith your PCP as you may need??to take oral lasix again ?? Medication Instructions: You will be discharged home??with instructions to take??dapagliflozin 10 mg??daily.?? Please continue all other medications as you were prior to admission.?? Prednisone taper for rash:??20 mg 05/01-, 10 mg 05/04-, then 5 mg 05/07- Please do not take olmesartan for 2 days after discharge. On 05/05, you may continue taking olmesartan. Please follow up with your PCP to have bloodwork done??within 1 week to check your kidney function? Return precautions:?? -Please return to the hospital if you experience severe crushing chest pain,??have worsening shortness of breath??with??walking/lying down??or at rest,??experience loss of consciousness,??notice??severe swelling in your lower extremities, or develop any concerning symptoms at all Results Recent Labs:BLOOD COUNT & DIFF WBC 9.3 k/mm3 ()?? 05/02/2024 03:41 RBC 4.35 m/mm3 ()?? 05/02/2024 03:41 Hgb 12.4 Gm/dL ()?? 05/02/2024 03:41 Hct 39.2 % ()?? 05/02/2024 03:41 MCV 90.1 femtoliters ()?? 05/02/2024 03:41 MCH 28.5 pg ()?? 05/02/2024 03:41 MCHC 31.6 Gm/dL (Low)?? 05/02/2024 03:41 Platelet Count 225 k/mm3 ()?? 05/02/2024 03:41 RDW-SD 64.5 femtoliters (High)?? 05/02/2024 03:41 MPV 10.4 femtoliters ()?? 05/02/2024 03:41 Nucleated RBC (Automated) 0.0 #/100 WBC'S ()?? 05/02/2024 03:41 Abs. NRBC 0.0 k/mm3 ()?? 05/02/2024 03:41 ?? CHEM GENERAL Sodium 140 mmol/L ()?? 05/02/2024 03:41 Potassium 4.3 mmol/L ()?? 05/02/2024 03:41 Chloride 99 mmol/L ()?? 05/02/2024 03:41 Bicarbonate Level 27 mmol/L ()?? 05/02/2024 03:41 Anion Gap 14 mmol/L ()?? 05/02/2024 03:41 Glucose Level 145 mg/dL (High)?? 05/02/2024 03:41 Glucose, POC 135 mg/dL (High)?? 05/02/2024 07:25 BUN 34 mg/dL (High)?? 05/02/2024 03:41 Creatinine-Blood 1.29 mg/dL (High)?? 05/02/2024 03:41 Estimated GFR Creatinine 42 ML/MIN/1.73 M2 ()?? 05/02/2024 03:41 Calcium 9.2 mg/dL ()?? 05/02/2024 03:41 Magnesium 1.9 mg/dL ()?? 05/02/2024 03:41 ?? URINE OTHER Est Creatinine Clearance 24.19 mL/min ()?? 05/02/2024 04:45 ?? Neilesh Pato DO Anesthesiology PGY-1 ?? Discussed with attending, Dr. Bassett ? Attending Attestation: I saw and examined the patient with the resident team and reviewed the charton the day of service. ??I have discussed the case and its management??with the resident as documented in the resident note on the day of service.??I agree with the resident's note and plan as documented.?? Pt responded very quickly to diuresis and did develop a mild karthik secondary to overdiuresis.?? Should have a bmp checked on followup.?? EF very mildly reduced on echo.?? She will resume her arbin 2 days.? No need for loop diuretic at this time.?? She understands will need to followup withpcp if weight gain or fluid retention.?? She is aware of need for sodium restriction.?? She feels very well at the time of discharge.?? She is aware of symptoms of hyper and hypoglycemia.?? Rebel Bassett MD * Jeimy RN, Margaret: PERFORM Event Display: Patient Education/Instruction Authored Date: [id number] Inpatient Adult Discharge Instructions. [place] [id number] Name: LUCÍA FRAGOSO : 1945?? Visit: 04/29/2024 14:45?? Current Date: 05/02/2024 12:12 ?? Account: [id number]?? Inpatient Adult Discharge Instructions We would like to thank you for allowing us to assist you with your healthcare needs. The following includes patient education materials and information regarding your injury/illness. Our entire staffstrives to provide an excellent experience for our patients and their families. PLEASE ENSURE YOU FOLLOW-UP PER THE INSTRUCTIONS BELOW! ?? YOUR OPINION IS IMPORTANT TO US! Please complete the survey you may receive by mail or email. Your feedback will be used to make improvements to the healthcare experiences of our patients and their families. Surveys are administered by [employer] ([email or web address]). ?? If further treatment with your primary care physician or another doctor is recommended, it is important for you to keep the appointment. Call your primary care physician or return to the Emergency Department immediately if your condition worsens, fails to improve, or new symptoms develop. If you need to find a doctor, you can call [facility] for a referral at [phone] or toll free at [phone]) or log in to [email or web address].. ?? [facility], in keeping with [facility] guidance, no longer requires face masks for staff, patientsor visitors in most situations. Similiar to time spent indoors at other locations, there is the chance that you were exposed to repiratory viruses during your time with us (such as flu or COVID-19). If you develop symptoms concerning for a viral respiratory infection, please seek testing (and treatment if indicated) from your medical provider or home test kit. ?? You can view and manage your care through the patient portal or by using a health care darell of your choosing. [employer] is a website that allows you to securely view your medical information including your hospital discharge summary, office visit summaries, medications and follow-up visits. You can also request appointments, renew medications, and request access to your medical information using a health care darell of your choosing, or just ask a question. You can enroll at [email or web address] or register during your next office visit. You have been discharged from [facility], Patient Care Unit: M7??. If you have any questions regarding these instructions, including results of studies pending, afteryou leave, please call us and we will be happy to assist you 29/09. [facility] Your Care Team Attending Physician Rebel Bassett MD?? Consulting Providers Rebel Bassett MD?? Discharging Providers Pato DO, Neilesh Reason for Your Visit From home. Acute onset SOB at home this morning. O2 on EMS arrival 88% RA, 2lpm improved to 95%. Cough x2 days, more productive today.?? Your Diagnosis Acute hypokalemia Atrial fibrillation Chemotherapy-induced neuropathy Drug rash Endometrial cancer HLD (hyperlipidemia) HTN (hypertension) Hyperglycemia T2DM (type 2 diabetes mellitus) Yeast dermatitis Tests Performed Below is a partial list of the tests performed during your hospitalization. You may have had other tests and procedures not included in this list. Please discuss all test results with your provider. Basic Metabolic Panel CBC CBC w/ Differential COVID-19, RSV, FLU A/B PCR GLUCOSE POC HEMOGLOBIN A1C High??Sensitivity??Troponin T Hold Blue Top Tube HOLD GEL TUBE HOLD MAYA TUBE Lytes Magnesium Level Mg Level ProBNP PROBNP Urinalysis w/hold for Urine Culture XR Chest 2 Views Frontal and Lat Add On Lab Order?? B Type Natriuretic Peptide (NT-proBNP) (PROBNP)?? Basic Metabolic Panel?? CBC?? CBC w/ Differential?? COVID-19, RSV, and Flu A/B, Rapid PCR (COVID-19, RSV, FLU A/B PCR)?? Electrolytes (Lytes)?? Glucose POC?? Hemoglobin A1C (Monitoring) (HEMOGLOBIN A1C)?? High??Sensitivity??Troponin T?? Hold Blue Top Tube?? Hold Gel Top Tube (HOLD GEL TUBE)?? Hold Maya Top Tube (HOLD MAYA TUBE)?? Magnesium Level?? Urinalysis w/hold for Urine Culture?? Chest 2 Views Frontal and Lat (XR Chest 2 Views Frontal and Lat)?? Primary Care Provider Shelia Gill MD? Advance Directive Health Care Proxy on File Yes - Health Care Proxy Discharge Vitals Temperature: 97.7 DegF Height: 150 cm Pulse Rate: 87 bpm Weight: 68.4 kg Respiratory Rate: 18 br/min Body Mass Index:??31.51 kg/m2??Critical Systolic Blood Pressure:??145 mm Hg??High Body surface area: 1.72 Diastolic Blood Pressure: 83 mm Hg ?? Oxygen Saturation: 96 % ?? Studies Pending All studies ordered during this hospital stay have been completed unless listed below. Please discuss all pending results with your provider listed above in these instructions. ?? Add On Lab Order?? COVID-19, RSV, and Flu A/B, Rapid PCR?? Electrolytes (Lytes)?? What to do next Instructions From Your Doctor You were seen at [facility]??for complaints of shortness of breath and ultimately was diagnosed with a heart failure exacerbation.?? You were diuresed with IV Lasix??which allowed you to??feel improvement in her symptoms??with good urine output.??You had an echocardiogram??(ultrasound of your heart) done??while you were inpatient which showed??a slightly lower ejection fraction of 47%, compared to your prior echo from March.??Your A1c??was elevated at 9%,??you should??follow-up with your primary care doctor regarding??a follow-up A1c outpatient??and possibly beginning diabetes medications if needed.?? You??should??follow up with your PCP in regards to obtaining a glucometer to check your glucose levels at home, this is a??prescription that you can only sisal picker at your [facility] pharmacy. If you??notice swelling in your lower extremities or worsening shortness of breath, you should follow upwith your PCP as you may need??to take oral lasix again ?? Medication Instructions: You will be discharged home??with instructions to take??dapagliflozin 10 mg??daily.?? Please continue all other medications as you were prior to admission.?? Prednisone taper for rash:??20 mg 05/01-, 10 mg 05/04-, then 5 mg 05/07- Please do not take olmesartan for 2 days after discharge. On 05/05, you may continue taking olmesartan. Please follow up with your PCP to have bloodwork done??within 1 week to check your kidney function? Return precautions:?? -Please return to the hospital if you experience severe crushing chest pain,??have worsening shortness of breath??with??walking/lying down??or at rest,??experience loss of consciousness,??notice??severe swelling in your lower extremities, or develop any concerning symptoms at all ?? Orders? 05/02/24 12:04:00 EST?? Prescriptions??, ??05/02/24 12:04:00 EST?? Scheduled Follow-Up Appointments 2024 10:00 AM EDT ?? With: Kavitha MARY, Amna Edwards Where: [facility] [address] [facility] 4[address] [place] [address] [place] [address]- Status: Pending You Need to Schedule the Following Appointments Follow Up with??Po Shelia RASHID Where: [address] [place] [address]- Discharge Medications LUCÍA FRAGOSO :1945 Visit Date:04/29/2024 Medications: Please continue your medications until treatment is completed or stopped by your provider. Medications not listed below should be discontinued. Discuss any questions related to medications with your provider. What How Much When Why Instructions Next Dose New dapagliflozin (dapagliflozin 10 mg oral tablet) 10 Milligram Oral Daily Pickup at [place] [address] 05/03 tomorrow AM New Durable Medical Equipment (Deltec Cozmo Glucometer) See instructions Please check glucose levels daily and follow up with PCP ?? Pickup at [place] [address] Changed Diltiazem (DilTIAZem (Eqv-Cardizem CD) 180 mg/ 24 hours oral capsule, extended release) 05/03 tomorrow AM Changed Metoprolol (metoprolol 25 mg oral tablet, extended release) 1 tab(s) Oral Daily Pickup at [place] [address] 05/03 tomorrow AM Changed Rosuvastatin (Crestor 10 mg oral tablet) TAKE 1 TABLET DAILY ?? Tonight 9pm Unchanged apixaban (Eliquis 5 mg oral tablet) 1 tab(s) Oral Twice a day 05/03 tomorrow AM Unchanged Cholecalciferol (Vitamin D3 1000 intl units oral capsule) 1 capsule Oral Daily 05/03 tomorrow AM Unchanged Cyanocobalamin (cyanocobalamin 500 mcg oral tablet) 1 tab(s) Oral Daily 05/03 tomorrow AM Unchanged Gabapentin (gabapentin 300 mg oral capsule) 1 capsule Oral Daily at Bedtime Chemotherapy-induced neuropathy Duration: 30 Days Tonight 9pm Unchanged Loratadine (loratadine 10 mg oral capsule) 1 capsule Oral Daily 05/03 tomorrow AM Unchanged Magnesium Gluconate Oral Twice a day Tonight 9pm Unchanged Olmesartan (olmesartan 20 mg oral tablet) 1 tab(s) Oral Daily 05/03 tomorrow AM Unchanged PredniSONE (predniSONE 10 mg oral tablet) See instructions Drug rash 4 tabs by mouth in the morning x 5 days, 3 tabs by mouth in the morning x5 days, 2 tabs by mouth inthe morning x3 days, 1 tab by mouth in the morning x3 days, then 1/ 2 tab by mouth in the morning x3 days. Currently taking 30 mg for 5 days starting ?? Take as directed Pharmacy Information [facility]: [address] [place] [address] [phone] ?? What How Much When Comments Stop Taking Letrozole (letrozole 2.5 mg oral tablet) 1 tab(s) Oral Daily Duration: 30 Days Prescription Given During Visit Durable Medical Equipment (Deltec Cozmo Glucometer) - , # 1 Unknown, Please check glucose levels daily and follow up with PCP, [place] [address] [phone]?? Metoprolol (metoprolol 25 mg oral tablet, extended release) - 1 tablet = 25 mg, By Mouth, Daily, # 30 tablet, 0 Refills, [facility] [address] [address] [phone]?? dapagliflozin (dapagliflozin 10 mg oral tablet) - 10 mg, By Mouth, Daily, # 30 tablet, 0 Refills, [facility] [address], [address] [place] [phone]?? Laboratory Results Below is a partial list of the most recent Laboratory test results done prior to this discharge. You may have had other tests and procedures not included in this list. Please discuss all test resultswith your provider. Est Creatinine Clearance - 24.19 mL/min (05/02/2024) Basic Metabolic Panel (05/02/2024) ???Sodium - 140 mmol/L???Potassium - 4.3 mmol/L???Chloride - 99 mmol/L???Bicarbonate Level - 27 mmol/L???Anion Gap - 14 mmol/L???Glucose Level - 145 mg/dL???BUN - 34 mg/dL???Creatinine-Blood - 1.29 mg/dL???Estimated GFR Creatinine - 42 ML/MIN/1.73 M2???Calcium - 9.2 mg/dL CBC (05/02/2024) ???WBC - 9.3 k/mm3???RBC - 4.35 m/mm3???Hgb - 12.4 Gm/dL???Hct - 39.2 %???MCV - 90.1 femtoliters???MCH - 28.5 pg???MCHC - 31.6 Gm/dL???Platelet Count - 225 k/mm3???RDW-SD - 64.5 femtoliters???MPV - 10.4 femtoliters???Nucleated RBC (Automated) - 0.0 #/100 WBC'S???Abs. NRBC - 0.0 k/mm3 CBC w/ Differential (04/29/2024) ???WBC - 16.1 k/mm3???RBC - 4.10 m/mm3???Hgb - 11.8 Gm/dL???Hct - 37.3 %???MCV - 91.0 femtoliters???MCH - 28.8 pg???MCHC - 31.6 Gm/dL???Platelet Count - 221 k/mm3???RDW-SD - 65.9 femtoliters???MPV - 10.2 femtoliters???Nucleated RBC (Automated) - 0.1 #/100 WBC'S???Abs. NRBC - 0.0 k/mm3???Abs. Neut -14.3 k/mm3???Abs. Lymph - 0.6 k/mm3???Abs. [place] - 1.0 k/mm3???Abs. Eo - 0.0 k/mm3???Abs. Baso - 0.0k/mm3???Neut % - 88.7 %???Lymph % - 3.6 %???[place] % - 6.0 %???Eos % - 0.2 %???Baso % - 0.2 %???Imm Gran - 1.3 %???Abs. Imm Gran - 0.2 k/mm3 COVID-19, RSV, FLU A/B PCR (04/29/2024) ???Influenza A PCR - NEGATIVE???Influenza B PCR - NEGATIVE???RSV PCR - NEGATIVE???COVID-19 PCR Specimen Source - NASAL???COVID-19 PCR Result - NEGATIVE GLUCOSE POC (05/02/2024) ???Glucose, POC - 207 mg/dL HEMOGLOBIN A1C (04/30/2024) ???Hemoglobin A1C (Monitoring) - 9.0 % High??Sensitivity??Troponin T (04/29/2024) ???High Sensitivity Troponin (HSTnT) - 8 ng/L Hold Blue Top Tube (04/29/2024) ???Hold Blue Top - SPECIMEN DISCARDED AFTER 4 HOURS. HOLD GEL TUBE (04/29/2024) ???Hold Gel Top - SPECIMEN DISCARDED AFTER 1 WEEK HOLD MAYA TUBE (04/29/2024) ???Hold Maya Top - SPECIMEN DISCARDED AFTER 1 WEEK Lytes (05/01/2024) ???Sodium - 137 mmol/L???Potassium - 4.7 mmol/L???Chloride - 97 mmol/L???Bicarbonate Level - 28 mmol/L???Anion Gap - 12 mmol/L Magnesium Level (05/02/2024) ???Magnesium - 1.9 mg/dL Mg Level (05/01/2024) ???Magnesium - 1.8 mg/dL ProBNP (04/29/2024) ???Nt-Probnp - 3079 pg/mL PROBNP (04/29/2024) ???Nt-Probnp - 3037 pg/mL Urinalysis w/hold for Urine Culture (04/29/2024) ???Appear/Color, Urine - COLORLESS???Specific [place], Urine - 1.006???pH, Urine - 6.5???Albumin, Urine - NEGATIVE???Glucose, Urine - 3+???Ketones, Urine - NEGATIVE???Bilirubin, Urine - NEGATIVE???Hemoglobin, Urine - NEGATIVE???Nitrite, Urine - NEGATIVE???Leukocyte, Urine - NEGATIVE???Urobilinogen - NORMAL???WBC's, Urine - 1 /HPF???RBC's, Urine - 1 /HPF???Squamous Epith - 1 /HPF???Hold Urine Culture - Testing available 48 hours from time of collection. You will be contacted within 72 hours with your results. Allergies (NKA means No Known Allergies) codeine??(Vomiting) morphine??(Vomiting) Problems Active Problems??(11) Chemotherapy-induced nausea?? Chemotherapy-induced neuropathy?? Deformity of right knee joint?? Endometrial cancer?? HTN (hypertension)?? Lip swelling?? Maintenance chemotherapy?? Obese class I?? Palmar plantar erythrodysesthesia?? Rash?? Vaginal bleeding?? Education Materials Below is the list of Educational Leaflet Providered with your Discharge Instructions. [employer] Patient Education - Heart Failure Discharge Instructions for Heart Failure?? [employer] Patient Education - How to Check Your Blood Sugar?? [employer] Patient Education - Dapagliflozin?? Valuables and Belongings I fully understand and agree that [facility] accepts no responsibility for all my personal property including clothing, toilet articles, radios, jewelry, dentures, hearing aids, rings, money, or any other property that is in my possession or is brought to me after admission. I understand certain valuables may be placed in a hospital safe for a short period of time. I understand that the hospital is not liable for loss or damage due to accident, fire, or other natural occurrence while said property is in the safe. I accept full responsibility for any personal property that I keep with me, and will not hold the hospital responsible in case of loss or disappearance. I acknowledge that i have been encouraged to send valuables and belongings home. ?? No Valuables/Belongings: No valuables/belongings present Review of Valuable and Belonging List: With patient Date for Pt to Sign Valuables/Belongings: 04/29/24 12:23:00 ?? Other Discharge Information ? Pulmonary Rehab Status?? Pulmonary Rehab Discharge Status?? CPAP/BiPAP Mask Type: Nasal CPAP/BiPAP Mask Size: Medium Respiratory Rate: 18 br/min ? Common Emergency Awareness Tips IS IT A STROKE? Act FAST and Check for these signs: FACE Does the face look uneven? ARM Does one arm drift down? SPEECH Does their speech sound strange? TIME Call at any sign of stroke ?? Heart Attack Signs Chest discomfort: Most heart attacks involve discomfort in the center of the chest and lasts more than a few minutes, or goes away and comes back. It can feel like uncomfortable pressure, squeezing, fullness or pain. Discomfort in upper body: Symptoms can include pain or discomfort in one or both arms, back, neck, jaw or stomach. Shortness of breath: With or without discomfort. Other signs: Breaking out in a cold sweat, nausea, or lightheaded. Remember, MINUTES DO MATTER. If you experience any of these heart attack warning signs, call to get immediate medical attention! ?? Smoking can increase your chances of developing chronic health problems and can cause harmful effects to other family members in your house. If you smoke, you are strongly encouraged to quit. Please call [facility] at [phone] or [phone]) or log in to [email or web address] for referrals to smoking cessation programs. ?? 502 Suicide & Crisis Lifeline is available 29/09 if you or someone you know needs to find a reason to keep living. By calling 521 you'll be connected to a skilled, trained counselor at a crisis center in your area. INPATIENT DISCHARGE INSTRUCTIONS SIGNATURE PAGE LUCÍA FRAGOSO Location:[facility] Registration Date and Time:04/29/2024 14:45 EST Primary Care Physician: Shelia Gill MD, Attending Physician: Rebel Bassett MD, I LUCÍA FRAGOSO, have received the above patient education materials/instructions and have verbalized understanding. If ambulance or transport services are being used I further acknowledge being given a choice of service. ?? If you need to contact me, please call me at this number: . Patient/Preschool Director Name: Patient/Preschool Director Signature: Relationship to Patient: Witness Name/Signature: Date: * Silvia Whyte DO: PERFORM Event Display: Patient Education Leaflets Authored Date: [id number] Heart Failure Discharge Instructions for Heart Failure ?? 153 Discharge Instructions for Heart Failure The heart is a muscle that pumps oxygen-rich blood to all parts of the body. When you have heart failure, the heart is not able to pump as well as it should. Blood and fluid may back up into the lungs (congestive heart failure), and some parts of the body don ???t get enough oxygen-rich blood to work normally. These problems lead to the symptoms of heart failure. Heart failure can occur due to aninjury to the heart or from natural processes. You can control symptoms of heart failure with some lifestyle changes and by following your doctor's advice. Home care Activity Ask your healthcare provider about an exercise program. You can benefit from simple activities suchas walking or gardening. Exercising most days of the week can make you feel better. Don't be discouraged if your progress is slow at first. Rest as needed. Stop activity if you develop symptoms such as chest pain, lightheadedness, or significant shortness of breath. Find activities that you enjoy, such as brisk walking, dancing, swimming, or gardening. These will help you stay active and strengthen your heart. Diet Follow a heart healthy diet. And make sure to limit the salt (sodium) in your diet. Salt causes your body to hold water. This makes your heart work harder as there is more fluid for the heart to pump. Limit your salt by doing the following: ??? Limit canned, dried, packaged, and fast foods. ??? Don't add salt to your food. ??? Season foods with herbs instead of salt. ??? Watch how much liquids you drink. Drinking too much can make heartfailure worse. Talk with your health care provider about how much you should drink each day. ??? Limit the amount of alcohol you drink. It may harm your heart. Women should have no more than 1 drink a day and men should have no more than 2. ??? When you eat out, request that your meals have no added salt. Tobacco If you smoke, it's very important to quit. Smoking increases your chances of having a heart attack by harming the blood vessels that provide oxygen to your heart. This makes heart failure worse. Quitting smoking is the number one thing you can do to improve your health. Enroll in a stop-smoking program to improve your chances of success. Talk with your healthcare provider??about medicines or nicotine replacement therapy to help you quit smoking. Ask your healthcare provider about smoking cessation support groups. Medicine Take your medicines exactly as prescribed. Learn the names and purpose of each of your medicines. Keep an accurate medicine list and current dosages with you at all times. Don't skip doses. If you miss a dose of your medicine, take it as soon as you remember. If you miss a dose and??it's almost time for your next dose, just wait and take your next dose at the normal time. Don't take a double dose. If you are unsure, call your doctor's office. Make sure not to mix up your medicines or forget what you've taken the same day. Weight monitoring Weigh yourself every day. A sudden weight gain can mean your heart failure is getting worse. Weigh yourself at the same time of day and in the same kind of clothes. Ideally, weigh yourself first thing in the morning after you empty your bladder, but before you eat breakfast. Your healthcare provider will show you how to track your weight. He or she will also discuss with you when you should call if you have a sudden, unexpected increase in your weight. In general, your healthcare provider may ask you to report if your weight goes up by more than 2 pounds in 1 day,?? 5 pounds in 1 week, or whatever weight gain you were told by your doctor. This is asign that you are retaining more fluid than you should be. Clues to weight gain include checking your ankles for swelling, or noticing you are short of breath when you lie down. Follow-up care Make a follow-up appointment as directed. Depending on the type and severity of heart failure you have, you may need follow-up as early as 7 days from hospital discharge. Keep appointments for checkups and lab tests that are needed to check your medicines and condition. Recognize that your health and even survival depend on your following medical recommendations. Symptoms Heart failure can cause a variety of symptoms, including: ??? Shortness of breath ??? Trouble breathing at night, especially when you lie down ??? Swelling in the legs and feet or in the belly (abdomen) ??? Becoming easily fatigued ??? Irregular or rapid heartbeat ??? Weakness or lightheadedness ??? Swelling of the neck veins It is important to know what to do if symptoms get worse or if you develop signs of worsening heartfailure. ?? When to see your healthcare provider Call your doctor right away if you have any of these signs of worsening heart failure: ??? Sudden weight gain (more than 2 pounds in 1 day or 5??pounds in 1 week, or whatever weight gainyou were told to report by your doctor) ??? Trouble breathing not related to being active ??? New or increased swelling of your legs or ankles ??? Swelling or pain in your abdomen ??? Breathing trouble at night (waking up short of breath, needing more pillows to breathe) ??? Frequent coughing that doesn't go away ??? Feeling much more tired than usual Call 911 Call 911 right away if you have: ??? Severe shortness of breath, such that you can't catch your breath even while??resting ??? Severe chest pain that does not resolve with rest or nitroglycerin ??? [place], foamy mucus with cough and shortness of breath ??? A continuous rapid or irregular heartbeat ??? Passing out or fainting ??? Stroke symptoms such as sudden numbness or weakness on one side of your face, arm, or leg or sudden confusion, trouble speaking or vision changes ? Please refer to the Heart Failure Handbook for more information. ? * Silvia Whyte DO: PERFORM Event Display: Patient Education Leaflets Authored Date: How to Check Your Blood Sugar ?? 49247 How to Check Your Blood Sugar Keeping track of how much sugar (glucose) is in your blood is an important part of self-care when you have diabetes. This is also called self-monitoring of blood glucose (SMBG). To make sure your glucose and insulin are in balance, check your blood sugar as instructed by your healthcare provider. You may need to check your blood glucose levels at certain times every day. Another way to keep track of your blood glucose is using a continuous glucose monitor (CGM). This small device uses tiny sensors attached to your skin. It is always recording your glucose levels in real time. You still may need to do finger sticks from time to time. This is to be sure the GCM is accurate. Think about teaching a close family member or friend how to test and record your blood sugar. This extra support may come in handy if you are ill. What you need To check your blood sugar, make sure you have:? A small pricking needle (lancing device) ??? Test strips ??? A glucose meter with test strips that match it ??? A way to keep track of your readings (smartphone, glucose meter, notebook, chart, or logbook) ?? Using a blood glucose meter You can check your blood sugar at home, at work, and anywhere else. Your diabetes team will help you choose a blood glucose meter. A meter measures the amount of glucose in a tiny drop of blood. You???ll use a device called a lancet to draw a drop of blood. Put the strip in the meter first. Then touch the test strip to the drop of blood. The meter then gives you a number (reading). This is your blood sugar level. ?? Aim for your target range Your blood sugar should be in your target range???not too high and not too low. A target range is where your blood sugar level is healthiest. Staying in this range as much as possible will help loweryour risk for health problems (complications). Your diabetes team will help you figure out the besttarget range for you. That range depends on many things. They include: ??? Your age ??? Other health problems you may have ??? How well your diabetes is controlled ??? How long you've had diabetes In general, target ranges are: ??? Control of blood glucose (A1C test, also called hemoglobin A1C).The goal for most people with diabetes is 7.0% or lower. The A1C is a blood test at the lab. It measures your blood sugar levels over the past 3 months. It is an important tool in managing your diabetes. ??? Before a meal (preprandial glucose). The target range is between 80 and 130 mg/dL. ??? 1 to2 hours after a meal (postprandial glucose). The range is less than 180 mg/dL. ??? At bedtime. The range should generally be between 90 and 150 mg/dL. ?? Track your readings Use a smartphone, glucose meter, notebook, chart, or logbook to keep track of your readings. Recordthe date, time, and your blood sugar level numbers. This helps you see patterns. For instance, if you have high blood sugar after eating certain foods. Take your log information along when you see your healthcare provider. Also keep a list of any questions for your provider. They may also have an electronic medical record that offers helpful tools and tracking options. Your blood glucose levels are [place]. They help your provider decide if they need to make changes to your management plan. To check your blood sugar, follow the steps below. Step 1.??Get ready ??? Wash your hands for at least 20 seconds with soap and clean, running water. ??? Follow all of the instructions that came with your glucose meter. Check that your test strips were designed to be used with your meter and that they haven't .?? Step 2.??Draw a drop of blood ??? Prick the side of your finger at the tip with the lancet. Squeeze gently until you get a drop of blood. Squeezing too hard can cause an inaccurate reading. ??? Put the lancet in a special sharps container. Ask your healthcare team where you can buy one or what you can use to throw away any sharps. ??? If you can't get enough blood, hold your hand at your side and gently shake it. If this is acommon problem for you, ask your provider if you can use other parts of your body to get the blood from. Step 3. Place the drop on a strip ??? Wait for the meter to show a message or symbol that it's time to test. ??? Touch the test stripto the drop of blood. ??? Follow the instructions included with the meter. Step 4. Read and record your results ??? Wait for your meter to show the result. ??? If you see an error message, recheck using a fresh strip and a fresh drop of blood. Also recheck if the glucose numbers aren't what you expect???too low without symptoms, or too high for no reason. ??? Record the results using the method you've chosen. Bring your record to your next appointment. ?? Last Reviewed Date: 2022 ?? 9582-9118 [employer]. All rights reserved. This information is not intended as a substitute for professional medical care. Always follow your healthcare professional's instructions. ?? * Silvia Whyte DO: PERFORM Event Display: Patient Education Leaflets Authored Date: [id number] Dapagliflozin ?? [id number] Dapagliflozin Brand Name(s): Farxiga??, Qtern?? (as a combination product containing Dapagliflozin, Saxagliptin),Qternmet?? XR (as a combination product containing Dapagliflozin, Metformin, Saxagliptin), Xigduo??XR (as a combination product containing Dapagliflozin, Metformin) ?? WHY is this medicine prescribed? Dapagliflozin is used along with diet and exercise, and sometimes with other medications, to lower blood sugar levels in adults and children 10 years of age and older with type 2 diabetes (condition in which blood sugar is too high because the body does not produce or use insulin normally). It is also used to reduce the risk of needing to be hospitalized for heart failure in adults who have type 2 diabetes along with heart and blood vessel disease or who have multiple risk factors for developing heart and blood vessel disease. Dapagliflozin is also used in adults with heart failure to reduce the risk of needing to be hospitalized and due to heart and blood vessel disease. It is also used to reduce the risk of worsening kidney disease, the need to be hospitalized for heart failure, and the risk of due to heart disease in adults with kidney disease. Dapagliflozin is in a classof medications called sodium-glucose co-transporter 2 (SGLT2) inhibitors. It lowers blood sugar by c ausing the kidneys to get rid of more glucose in the urine. Dapagliflozin is not used to treat type1 diabetes (condition in which the body does not produce insulin and, therefore, cannot control theamount of sugar in the blood) or diabetic ketoacidosis (a serious condition that may develop if high blood sugar is not treated). Over time, people who have diabetes and high blood sugar can develop serious or life-threatening complications, including heart disease, stroke, kidney problems, nerve damage, and eye problems. Taking dapagliflozin, making lifestyle changes (e.g., diet, exercise, quitting smoking), and regularly checking your blood sugar may help to manage your diabetes and improve your health. This therapy may also decrease your chances of having a heart attack, stroke, or other diabetes-related complications such as kidney failure, nerve damage (numb, cold legs or feet; decreased sexual ability in men and women), eye problems, including changes or loss of vision, or gum disease. Your doctor and other healt hcare providers will talk to you about the best way to manage your diabetes. HOW should this medicine be used? Dapagliflozin comes as a tablet to take by mouth. It is taken usually with or without food once a day. Take dapagliflozin at around the same time every day. Follow the directions on your prescriptionlabel carefully, and ask your doctor or pharmacist to explain any part you do not understand. Take dapagliflozin exactly as directed. Do not take more or less of it or take it more often than prescribed by your doctor. Your doctor may start you on a low dose of dapagliflozin and increase your dose if needed. Dapagliflozin helps to control your condition, but does not cure it. Continue to take dapagliflozineven if you feel well. Do not stop taking dapagliflozin without talking to your doctor. Your doctor or pharmacist will give you the travel director's patient information sheet (Medication Guide) when you begin treatment with dapagliflozin and each time you refill your prescription. Read the information carefully and ask your doctor or pharmacist if you have any questions. You can also visit the Food and Drug Administration (FDA) website (https://www.fda.gov/Drugs/DrugSafety/fhj180135.htm) to obtain the Medication Guide. Are there OTHER USES for this medicine? This medication may be prescribed for other uses; ask your doctor or pharmacist for more information. What SPECIAL PRECAUTIONS should I follow? Before taking dapagliflozin, ??? tell your doctor and pharmacist if you are allergic to dapagliflozin, any other medications, orany of the ingredients in dapagliflozin tablets. Ask your pharmacist or check the Medication Guide for a list of the ingredients. ??? tell your doctor and pharmacist what other prescription and nonprescription medications, vitamins, nutritional supplements, and herbal products you are taking or plan to take. Your doctor may need to change the doses of your medications or monitor you carefully forside effects. ??? tell your doctor if you regularly drink alcohol or sometimes drink large amounts of alcohol in a short time (binge drinking), if you are on a low sodium diet, or if you have an infection. Also tell your doctor if you have or have ever had heart failure, pancreatic disease including pancreatitis (swelling of the pancreas) or have had surgery on your pancreas, urinary tract infections or problems urinating, low blood pressure, yeast infections in the genital area, or kidney or liver disease. If you are male, tell your doctor if you have never been circumcised. Also, tell your doctor if you are eating or drinking less due to illness, surgery or a change in your diet; if you are following a ketogenic diet (a high fat, low carbohydrate diet); or have recently had diarrhea, vomiting, been in the sun too long, or have been sweating a lot, which may cause dehydration (loss of a large amount of body fluids). ??? tell your doctor if you are , plan to become , or are . Do not breastfeed while you are taking dapagliflozin. If you become while taking dapagliflozin, call your doctor. ??? if you are having surgery, including dental surgery,tell the doctor or dentist that you are taking dapagliflozin. Your doctor will probably tell you tostop taking dapagliflozin at least 3 days before a surgery. ??? alcohol may cause a change in bloodsugar. Ask your doctor about the safe use of alcoholic beverages while you are taking dapagliflozin. ??? you should know that dapagliflozin may cause dizziness, lightheadedness, and fainting when youget up too quickly from a lying position. If you have this problem, call your doctor. This problem is more common when you first start taking dapagliflozin. To avoid this problem, get out of bed slowly, resting your feet on the floor for a few minutes before standing up. ??? ask your doctor what todo if you get sick, develop an infection or fever, experience unusual stress, or are injured. These conditions can affect your blood sugar and the amount of dapagliflozin you may need. What SPECIAL DIETARY instructions should I follow? Be sure to follow all exercise and dietary recommendations made by your doctor or dietitian. It is important to eat a healthful diet and exercise regularly. Follow your doctor's instructions about drinking enough fluids throughout the day while you are on this medication. What should I do IF I FORGET to take a dose? Take the missed dose as soon as you remember it. However, if it is almost time for the next dose, skip the missed dose and continue your regular dosing schedule. Do not take a double dose to make up for a missed one. What SIDE EFFECTS can this medicine cause? Dapagliflozin may cause side effects. Tell your doctor if any of these symptoms are severe or do not go away: ??? urinating a lot, including at night ??? stuffy or runny nose ??? sore throat ??? leg or arm pain ??? constipation Some side effects can be serious. If you experience any of these symptoms, call your doctor immediately: ??? frequent, urgent, burning, or painful urination ??? urine that is cloudy, red, pink, or brown ??? strong smelling urine ??? decrease in amount of urine ??? fever, back pain, nausea or vomiting ??? dry mouth, dark urine, decreased sweating, dry skin, and other signs of dehydration ??? pelvic or rectal pain ??? (in women) vaginal odor, white or yellowish vaginal discharge (may be lumpy or look like cottage cheese), or vaginal itching ??? (in men) redness, itching, or swelling of the penis; rash on the penis; foul smelling discharge from the penis; or pain in the skin around the penis ??? feeling tired, weak, or uncomfortable; along with a fever and pain, tenderness, redness, and swelling of the genitals or the area between the genitals and the rectum If you experience any of the following symptoms, stop taking dapagliflozin and call your doctor immediately or get emergency medical treatment: ??? rash ??? hives ??? itching ??? difficulty breathing or swallowing ??? swelling of the face, throat, tongue, lips, mouth, or eyes ??? hoarseness If you experience any of the following symptoms of ketoacidosis, stop taking dapagliflozin and callyour doctor immediately or get emergency medical treatment. If possible, check for ketones in your urine if you have these symptoms, even if your blood sugar is less than 250 mg/dL: ??? nausea ??? vomiting ??? stomach-area pain ??? tiredness ??? difficulty breathing Dapagliflozin can cause dehydration. It is important that you drink plenty of water while taking dapagliflozin. Talk to your doctor or pharmacist about the right amount of water to drink to prevent dehydration while taking dapagliflozin. Dapagliflozin may cause other side effects. Call your doctor if you have any unusual problems whiletaking this medication. If you experience a serious side effect, you or your doctor may send a report to the Food and Drug Administration's (FDA) MedWatch Adverse Event Reporting program online (https://www.fda.gov/Safety/MedWatch) or by phone ( ). What should I know about STORAGE and DISPOSAL of this medication? Keep this medication in the container it came in, tightly closed, and out of reach of children. Store it at room temperature and away from excess heat and moisture (not in the bathroom). It is important to keep all medication out of sight and reach of children as many containers (such as weekly pill minders and those for eye drops, creams, patches, and inhalers) are not child-resistant and young children can open them easily. To protect young children from poisoning, always lock safety caps and immediately place the medication in a safe location ??? one that is up and away and out of their sight and reach. https://www.[employer].org Unneeded medications should be disposed of in special ways to ensure that pets, children, and otherpeople cannot consume them. However, you should not flush this medication down the toilet. Instead,the best way to dispose of your medication is through a medicine take-back program. Talk to your pharmacist or contact your local garbage/recycling department to learn about take-back programs in your community. See the FDA's Safe Disposal of Medicines website (https://goo.gl/c4Rm4p) for more information if you do not have access to a take-back program. What should I do in case of OVERDOSE? In case of overdose, call the poison control helpline at . Information is also available online at https://www.poisonhelp.org/help. If the victim has collapsed, had a seizure, has trouble breathing, or can't be awakened, immediately call emergency services at 721. What OTHER INFORMATION should I know? Keep all appointments with your doctor and the laboratory. Your doctor will probably order certain laboratory test before and during your treatment to check your body's response to dapagliflozin. Your blood sugar levels should be checked regularly to determine your response to dapagliflozin. Your doctor will order other lab tests, including glycosylated hemoglobin (HbA1c), to check your response to dapagliflozin. Your doctor will also tell you how to check your response to this medication by measuring your blood sugar levels at home. Follow these instructions carefully. Before having any laboratory test, tell your doctor and the laboratory personnel that you are taking dapagliflozin. Because of the way this medication works, your urine may test positive for glucose. You should always wear a diabetic identification bracelet to be sure you get proper treatment in anemergency. Do not let anyone else take your medication. Ask your pharmacist any questions you have about refilling your prescription. It is important for you to keep a written list of all of the prescription and nonprescription ([id number]) medicines you are taking, as well as any products such as vitamins, minerals, or otherdietary supplements. You should bring this list with you each time you visit a doctor or if you areadmitted to a hospital. It is also important information to carry with you in case of emergencies. This report on medications is for your information only, and is not considered individual patient advice. Because of the changing nature of drug information, please consult your physician or pharmacist about specific clinical use. The [place] [employer] represents that the information provided hereunder was formulated with a reasonable standard of care, and in conformity with professional standards in the field. The [place] [employer] makes no representations or warranties, express or implied, including, but not limited to, any implied warranty of merchantability and/or fitness for a particular purpose, with respect to such information and specifically disclaims all such warranties. Users are advised that decisions regarding drug therapy are complex medical decisions requiring the independent, informed decision of an appropriate health in home caregiver, and the information is provided for informational purposes only. The entire monograph for a drug should be reviewed for a thorough understanding of the drug's actions, uses and side effects. The [place] [employer] does not endorse or recommend the use of any drug.The information is not a substitute for medical care. AHFS?? Patient Medication Information???. ?? Copyright, 2023. The [employer] [place] [employer]??, [address] [facility], [address], [place], [place]. All Rights Reserved. Duplication for commercial use must be authorized by [facility]. Selected Revisions: November 27, 2023. AHFS?? Patient Medication Information???. ?? Copyright, 2024 ?? Patient Care team information Care Team Personnel Name: Roxy Knowles RN Position: [facility] Onco RN Member Role: Primary Care Nurse Name: Carissa Das RN Position: S Onco RN Member Role: Primary Care Nurse Name: Nate Gibbons RN Position: S Onco RN Member Role: Primary Care Nurse Name: Katie Castañeda RN Position: S Onco RN Member Role: Primary Care Nurse Name: Shelia Gill MD Position: Reference Physician Member Role: PCP Address: [address] [place] [address] Telecom: Name: Geovanni Gomez RN Position: S RN Member Role: Primary Care Nurse Name: Kaylin Delgadillo RN Position: S Onco RN Member Role: Primary Care Nurse Care Team Related Persons Name: STEPHANI FRAGOSO Insurance Providers Guarantor name: LUCÍA FRAGOSO [facility] Information #: 2 Payer: MEDICARE PART B OUTPT Member Number: [id number] Policy Number: NA Group Number: NA Health Plan Information #: 1 Payer: MEDICARE A INPT 25 Member Number: [id number] Policy Number: TEE Group Number: NA Health Plan Information #: 3 Payer: MEDEX Member Number: [id number] Policy Number: TEE Group Number: [id number] Health Plan Information #: 4 Payer: MEDEX Member Number: [id number] Policy Number: NA Group Number: NA
== END 2024-05-06 11:44 | disposition home or self-care (01) ==
PROVIDERS: PCP Internal Medicine; Visit Provider Nurse Practitioner Family
DX: I50.9 Heart failure, unspecified (principal); E11.65 Type 2 diabetes mellitus with hyperglycemia

== ENCOUNTER → 2024-05-06 10:42 | Outpatient (BNVA) | payer MEDICARE, SELFPAY | PROVIDERS: PCP Internal Medicine; Visit Provider Nurse Practitioner Family | DX: I50.9 Heart failure, unspecified (principal); E11.65 Type 2 diabetes mellitus with hyperglycemia | CPT/HCPCS: 99212 ==

== ENCOUNTER 2024-07-11 09:37 | Outpatient (AMB) | payer MEDICARE, SELFPAY ==
--- NOTE | 2024-07-11 09:51 | A.OFFPC_ITS ---
Vital Signs 07/11/24 09:52 Height 5 ft Weight 150 lb BMI 29.3 BP 136/88 Blood Pressure Location Lt brachial Position Sitting Pulse 80 Pulse Source Pulse Oximeter Pulse Oximetry (%) 98 Oxygen Delivery Method Room Air Intake Visit Reasons: DM Allergies atorvastatin [From Lipitor] Allergy (Unknown, Verified 07/11/24 09:52) Unknown codeine [CODEINE] Allergy (Unknown, Verified 07/11/24 09:52) Unknown Iodinated Contrast Media Allergy (Unknown, Verified 07/11/24 09:52) MRI Dye- unknown morphine [MORPHINE] Allergy (Unknown, Verified 07/11/24 09:52) Unknown crab Allergy (Verified 07/11/24 09:52) Unknown Tobacco use date assessed: 07/11/24 Fall risk assessment: No Falls in past year Last assessed Fall Risk: 07/11/24 Dental Screening Dental Screen Date: 05/06/24 HPI DM HPI Details cardiology [facility] Medical History (Updated 07/11/24 @ 10:20 by Shelia Glil MD) CHF (congestive heart failure) Post-menopausal Left elbow fracture Coronary artery disease Hiatal hernia Cataracts, bilateral Vitamin D deficiency Obesity (BMI 30-39.9) Atrial fibrillation Obstructive sleep apnea Type 2 diabetes mellitus with hyperglycemia Type 2 diabetes mellitus with diabetic neuropathic arthropathy Hypercholesterolemia Hypertension Surgical History S/P MARC-BSO History of cataract surgery Family History Father CVD (cardiovascular disease) Myocardial infarction Mother No problems noted. Maternal Aunt Breast cancer Skin cancer Brother No problems noted. Sister No problems noted. Son No problems noted. Son No problems noted. Social History Housing: House Alcohol intake: never Patient Tobacco Use Status: Never used Tobacco Tobacco use type: Cigarette e-Cigarette/Vaping Use: Never Used Second Hand Smoke Exposure: No service: No Current occupational status: retired Cognitive needs: No Hearing needs: No Vision needs: Yes Questionnaire PHQ-9 Over the last 2 weeks, how often have you been bothered by any of the following problems? 1. Little interest or pleasure in doing things: not at all 2. Feeling down, depressed, or hopeless: not at all 3. Trouble falling or staying asleep, or sleeping too much: not at all 4. Feeling tired or having little energy: not at all 5. Poor appetite or overeating: not at all 6. Feeling bad about yourself - or that you are a failure or have let yourself or your family down: not at all 7. Trouble concentrating on things, such as reading the newspaper or watching television: not at all 8. Moving or speaking so slowly that other people could have noticed. Or the opposite - being so fidgety or restless that you have been moving around a lot more than usual: not at all 9. Thoughts that you would be better off or of hurting yourself in some way: not at all Total score: 0 Depression Screening Interpretation: Negative Depression Screening Done: Yes Source: Developed by Drs. Mehdi Bach, Paola Quan, Dyllan Palacio and colleagues, with an educational kim from [employer]. Thrive Questionnaire Date Thrive assessed: 05/06/24 RAKESH-7 AMB Questionnaire RAKESH-7 Date RAKESH - 7 assessed: 05/06/24 Source: Developed by Drs. Mehdi Bach, Paola Quan, Dyllan Palacio and colleagues, with an educational kim from [employer]. Physical exam (Primary Care) Vital Signs: Last Vital Signs Pulse 80 07/11/24 09:52 BP 136/88 07/11/24 09:52 Pulse Ox 98 07/11/24 09:52 Oxygen Delivery Method Room Air 07/11/24 09:52 BMI result Body Mass Index 29.3 Tobacco/Smoking Status: Tobacco use Status Tobacco use date assessed 07/11/24 07/11/24 09:53 Patient Tobacco Use Status Never used Tobacco 07/11/24 09:53 Tobacco use type Cigarette 07/11/24 09:53 e-Cigarette/Vaping Use Never Used 07/11/24 09:53 PHQ-9: PHQ-9 Score PHQ-9: Total score 0 07/11/24 10:39 Depression Screening Interpretation: Negative Thrive Assessment: Date of Thrive Assessment Date Thrive assessed 05/06/24 07/11/24 09:53 Const General: alert; No acute distress Eyes Conjunctivae: conjunctivae normal Resp Auscultation: clear to auscultation bilaterally Cardio Rate: regular rate Rhythm: regular rhythm GI Inspection: Yes normal to inspection Extrem General: Yes normal to inspection and No edema Results AMB Hemoglobin A1c AMB Hemoglobin A1c 6.3 % Last Edit by Alice Galaviz CMA on 07/11/24 10 :08 Immunizations Tenivac (PF) 5 Lf unit-2 Lf unit/0.5 mL intramuscular suspension Performing Provider: Shelia Gill MD Performing Location: [facility] Administered by: Alice Galaviz CMA on 07/11/24 10:39 Dose Route Admin Location Dispensed Lot Number Expiration Date NDC Candy Separator [place] 0.5 mL IM Left Deltoid 0.5 mL [id number] 05/07/26 09793-758-85 [employer]/ VIS Given Date VIS Provided VIS Publication Date 07/11/24 Single Vaccine 20 Eligibility Eligibility Date Funding Source Not [facility] Eligible 07/11/24 Private Results Reviewed Results Reviewed: Laboratory Last Values Hgb A1c (Clinic) 6.3 % (4.0-6.0) H 07/11/24 09:53 Coding Level of Care Code Est Pt Level 4 (95496) Complex EM visit Add On G2211 Diagnoses Acute congestive heart failure, unspecified heart failure type I50.9 Heart failure chronicity: acute Heart failure type: unspecified Cardiomyopathy I42.9 Coronary artery disease involving [place] coronary artery of [place] heart without angina pectoris I25.10 Associated angina: without angina Coronary Disease-Associated Artery/Lesion type: [place] artery [place] vs. transplanted heart: [place] heart Paroxysmal atrial fibrillation I48.0 Atrial fibrillation type: paroxysmal Type 2 diabetes mellitus with hyperglycemia, without long-term current use of insulin E11.65 Diabetes mellitus jail insulin use: without ocean transportation intermediary use Obstructive sleep apnea G47.33 Essential hypertension I10 Hypertension type: essential hypertension Hypercholesterolemia E78.00 Endometrial cancer C54.1 Assessment & Plan Assessment & Plan (1) CHF (congestive heart failure): Code(s): I50.9 - Heart failure, unspecified Category: Medical Qualifiers: Heart failure chronicity: acute Heart failure type: unspecified Qualified Code(s): I50.9 - Heart failure, unspecified Plan: Weigh daily and record. Continuing with Farxiga. (2) Cardiomyopathy: Code(s): I42.9 - Cardiomyopathy, unspecified Category: Medical Plan: Patient advised to follow-up with cardiology (3) Coronary artery disease: Code(s): I25.10 - Atherosclerotic heart disease of [place] coronary artery without angina pectoris Category: Medical Qualifiers: Associated angina: without angina Coronary Disease-Associated Artery/Lesion type: [place] artery [place] vs. transplanted heart: [place] heart Qualified Code(s): I25.10 - Atherosclerotic heart disease of [place] coronary artery without angina pectoris Plan: Control the cholesterol, weight, blood pressure, diabetes patient on anticoagulation (4) Atrial fibrillation: Code(s): I48.91 - Unspecified atrial fibrillation Category: Medical Qualifiers: Atrial fibrillation type: paroxysmal Qualified Code(s): I48.0 - Paroxysmal atrial fibrillation Plan: Continue with anticoagulation on diltiazem (5) Type 2 diabetes mellitus with hyperglycemia: Comment: [facility] 01/2022 Code(s): E11.65 - Type 2 diabetes mellitus with hyperglycemia Category: Medical Qualifiers: Diabetes mellitus jail insulin use: without jail use Qualified Code(s): E11.65 - Type 2 diabetes mellitus with hyperglycemia Plan: Decrease the amount of carbohydrate intake, pasta, bread, rice and potatoes are all sugar and that is aside from all the sweet stuff, remember that fruits are good but they are Sweet also. Hemoglobin A1c goal of less than 7.0 on Farxiga only. (6) Obstructive sleep apnea: Comment: CPAP Code(s): G47.33 - Obstructive sleep apnea (adult) (pediatric) Category: Medical Plan: Continue to use the CPAP more than 4 hours a night and benefits from this. (7) Hypertension: Code(s): I10 - Essential (primary) hypertension Category: Medical Qualifiers: Hypertension type: essential hypertension Qualified Code(s): I10 - Essential (primary) hypertension Plan: Continue with blood pressure medication. Decrease salt intake and exercise patient on diltiazem metoprolol olmesartan (8) Hypercholesterolemia: Code(s): E78.00 - Pure hypercholesterolemia, unspecified Category: Medical Plan: Avoid fried foods, chicken skin, eggs, butter margarine, pastries and meat. Be it pork or beef they have a lot of cholesterol patient do need blood work LDL goal of less than 70 and triglyceride of less than 150 (9) Endometrial cancer: Comment: February 2022, June 2022robotic assisted total laparoscopic hysterectomy with bilateral salpingo-oophorectomy, bilateral pelvic lymphadenectomy, repair of vaginal lacer Code(s): C54.1 - Malignant neoplasm of endometrium Category: Medical Plan: Seeing Oncology [facility] on new treatment HER 2NEW2+ Plan History of Present Illness The patient is an 79-year-old female presenting with concerns related to her chronic conditions, notably diabetes mellitus, congestive heart failure, and issues related to her previous chemotherapy treatment for endometrial cancer. She recently experienced a chemo-induced rash, managed with prednisone. Her diabetes management shows improvement from a previously high hemoglobin A1c leve l to a range now at 6.0. She reports consistent episodes of shortness of breath and orthopnea related to her known heart failure, documented in a March echocardiogram, highlighting diastolic dysfunction and a significantly dilated left atrium. Her medical history includes hospitalization for heart failure, after which new cardiac medications were prescribed, including Jardiance and Farxiga. She has been adherent to using her CPAP therapy and reports overall stability in her condition with regular home monitoring of her weight. Medications for managing blood pressure include diltiazem, metoprolol, and olmesartan, and there's an emphasis on anticoagulation for coronary artery disease. Additional management goals include achieving target cholesterol levels, for which current lab results are awaited. Health Maintenance - Pneumonia vaccination is up to date. - The patient received a tetanus booster today; last booster was in 2013. - Uses CPAP more than 4 hours nightly with noted improvement in sleep apnea symptoms. - Routine colonoscopy was completed in 2022. - Mammogram performed in May 2022. - Bone density screening is current. Social History - Reports no current employment or functional incapacity. - Actively monitors weight, engaging in sodium-restricted diet. - Uses CPAP therapy consistently as part of her nightly routine. - Regularly self-monitors blood glucose levels as part of diabetes management. Review of Systems - Cardiovascular: Reports shortness of breath and orthopnea; monitors weight for fluid changes. - Respiratory: Denies new cough or respiratory infection. - Dermatological: Reports rash secondary to chemotherapy. - Gastrointestinal: Denies current gastrointestinal disturbances; previous diarrhea resolved. - Musculoskeletal: Denies new joint or muscle pain. - Neurological: Denies dizziness or new cognitive changes. - Hematologic: Denies bleeding complications. - Urinary: Reports previous UTI, now treated. Physical Exam Results - Echocardiogram: Ejection fraction at 47%; diastolic dysfunction with severely dilated left atrium, and normal left ventricular wall. - Hemoglobin A1c: Initially 9.0, improved to 6.0 under current management. Plan We reviewed the patient's complex medication regimen to manage her chronic diseases, including discontinuation of chemotherapy until further dermatologic evaluation and a potential re-assessment from oncology. Congestive heart failure control remains bol[place], with reminders provided for her to regularly weigh herself and adjust diuretic therapy as necessary based on weight gain. Diabetes control has shown substantial improvement, and maintenance of these changes is a primary goal moving forward. Her antihypertensive combination therapy of diltiazem, metoprolol, and olmesartan appears effective, while anticoagulation therapy will continue under close monitoring due to her CAD. Lipid control will require pending labs, with further management tailored accordingly. Follow-up was encouraged with her cardiology team, and CPAP compliance was acknowledged as a critical component of her overall care strategy. A tetanus booster, given its due renewal, was also part of today's preventive care initiatives. Patient was informed and verbally consented to the use of an ambient scribe for clinic note documentation during this visit. Discussion Notes Today, I informed the patient about the necessary management of her chronic conditions, including diabetes mellitus, heart failure, and obstructive sleep apnea. We discussed the implications of stopping chemotherapy due to the rash and future steps involving dermatological reassessment before resumption. Continuing anticoagulation therapy is crucial for her coronary artery disease. I emphasized monitoring her weight, adhering to dietary sodium restrictions, and the importance of continued use of her CPAP device. The decision for today's tetanus booster was based on it being due, following the usual protocol. Future blood work was agreed upon, mainly targeting cholesterol, and maintaining her current therapeutic regimen for hypertension and diabetes was advised. We decided on continued follow-up with cardiology and routine monitoring for cardiac status and potential skin reactions before restarting chemotherapy. I confirmed the need for future visits and potential adjustments based on forthcoming lab results. Patient Instructions - Continue all medications as prescribed, including use of CPAP nightly. - Monitor your weight daily and alert the office if it increases by more than 2- 3 pounds. - Avoid high-sodium foods; read food labels carefully. - Follow up with your driver as scheduled for heart failure management. - Schedule and obtain blood work for cholesterol levels. - Notify our office if any new rash or skin reaction occurs. - Obtain a follow-up appointment following your next cardiology consult. - Always report any worsening of shortness of breath or sudden swelling in your legs. Orders: Orders AMB Hemoglobin A1c Today Z13.9 - Encounter for screening, unspecified Complete Blood Count Auto Diff Today E11.65 - Type 2 diabetes mellitus with hyperglycemia Microalbumin, Random (w Creat) Today E11.65 - Type 2 diabetes mellitus with hyperglycemia Vitamin B12 and Folate Today E11.65 - Type 2 diabetes mellitus with hyperglycemia Td Immunization Today Z23 - Encounter for immunization Comprehensive Met. Panel Today E11.65 - Type 2 diabetes mellitus with hyperglycemia Free T4 (Free Thyroxine) Today E11.65 - Type 2 diabetes mellitus with hyperglycemia Thyroid Stimulating Hormone Today E11.65 - Type 2 diabetes mellitus with hyperglycemia Lipid Panel Today E11.65 - Type 2 diabetes mellitus with hyperglycemia, E78.00 - Pure hypercholesterolemia, unspecified Creatinine Urine Today E11.65 - Type 2 diabetes mellitus with hyperglycemia Vitamin D 25-OH Total Today E11.65 - Type 2 diabetes mellitus with hyperglycemia B Type Natriuretic Peptide Today E11.65 - Type 2 diabetes mellitus with hyperglycemia
[2024-07-11 09:52] VITALS: BP 136/88; PULSE 80; O2SAT 98; BMI 29.3
== END 2024-07-11 10:44 | disposition home or self-care (01) ==
LOC: HO.HMCH 09:38
PROVIDERS: PCP Internal Medicine; Visit Provider Internal Medicine
DX: I50.9 Heart failure, unspecified (principal); I42.9 Cardiomyopathy, unspecified; E11.65 Type 2 diabetes mellitus with hyperglycemia; I48.0 Paroxysmal atrial fibrillation; C54.1 Malignant neoplasm of endometrium; I11.0 Hypertensive heart disease with heart failure; I25.10 Atherosclerotic heart disease of native coronary artery without angina pectoris; G47.33 Obstructive sleep apnea (adult) (pediatric); E78.00 Pure hypercholesterolemia, unspecified; Z23 Encounter for immunization

== ENCOUNTER → 2024-07-11 09:37 | Outpatient (BNVA) | payer MEDICARE, SELFPAY | PROVIDERS: PCP Internal Medicine; Visit Provider Internal Medicine | DX: Z23 Encounter for immunization (principal); E11.65 Type 2 diabetes mellitus with hyperglycemia; I42.9 Cardiomyopathy, unspecified; I25.10 Atherosclerotic heart disease of native coronary artery without angina pectoris; I48.0 Paroxysmal atrial fibrillation; I11.0 Hypertensive heart disease with heart failure; I50.9 Heart failure, unspecified; G47.33 Obstructive sleep apnea (adult) (pediatric); E78.00 Pure hypercholesterolemia, unspecified; C54.1 Malignant neoplasm of endometrium | CPT/HCPCS: 83036; 90471; 90714; 99212 ==

== ENCOUNTER 2024-10-14 12:48 | Outpatient (AMB) | payer MEDICARE, SELFPAY ==
--- OUTSIDE RECORDS SUMMARY | 2024-10-14 12:51 | XMS_ITS | Patient Health Record ---
Author Organization [facility] erick HollandBasilio Address [address] [place] [address] Care Team Providers Care Boner Meat Name Role Phone Shelia Gill Primary Care Provider Per Acosta Unavailable [phone] Allergies Allergen (clinical drug ingredient) Drug/Non Drug [...] 10 MG 1 tablet Orally Once a day; Duration: 30 day(s) Active Metoprolol Succinate 25MG 1 po QD Active Ocuvite Orally Active Potassimin Active Rosuvastatin Calcium 5 MG 1 tablet Orall y Once a day Active Baby Aspirin 81 MG 1 tablet Orally Once a day; Duration: 30 day(s) Active Tribenzor 20-5-12.5 MG 1 tablet Orally O nce a day; Duration: 30 day(s) Active Benicar 20 MG Orally Once a day Active Zantac Active Crestor 5 MG 2 tablets Orally Onc e a day; Duration: 30 day(s) Active Immunizations Vaccine Route Administration Date Status Comme nts Flu vaccine no Preserv 3 and > Unknown 12/13/2014 Administered COVID-19 Pfizer BioNTech Vaccine Unknown 07/16/2021 Administered 1st 04/11/2020 2nd 05/02/2020 3rd 12/05/2020 Social History Tobacco Use: Social History Observation [...] Status Risk Notes Problem Acquired hallux valgus (02826161) Hallux valgus (acquired), right foot (M20.11) Active confirmed Problem Polyneuropathy due to type 2 diabetes mellitus (178682273) Type 2 diabetes mellitus with diabetic polyneuropathy (E11.42) Active confirmed Problem Polyneuropathy due to diabetes mellitus type I (652820321) Type 1 diabetes mellitus with diabetic polyneuropathy (E10.42) Active confirmed Plan Of Treatment Pending Test Test Name Order Date Hemoglobin A1c 07/25/2013 32694-MIBS SKIN LESIONS, OVER 4 07/13/19 20 70803-EBRY SKIN LESIONS, OVER 4 07/19/19 21 05342-AXIE SKIN LESIONS, OVER 4 07/16/19 16 72429-BNEP SKIN LESIONS, OVER 4 07/15/19 17 09328-RDRQ SKIN LESIONS, OVER 4 07/14/19 18 74204-NBVC SKIN LESIONS, OVER 4 07/15/19 19 58166-ISVD SKIN LESIONS, 2 TO 4 07/26/19 14 26357-RARS SKIN LESIONS, 2 TO 4 07/25/19 15 58724-QGKC NAIL(S) 07/24/2014 12086-OPZK NAIL(S) 07/14/2016 75119-GRCC NAIL(S) 07/13/2017 K6205-PHABLTVL DYSTROPHIC NAILS ANY # [id number]-[id number] DYSTROPHIC NAILS ANY # [id number] DYSTROPHIC NAILS ANY # Insurance Providers Payer Name Payer Address Payer Phone Subscriber Number Group Number Insured Name Patient Relationship to Insured Coverage Start Date Coverage End Date Medicare National Govt Sv[employer] [address] [place] [address] [phone] [id number] Lucía Fragoso Self - patient is the insured [address] [facility] [address] [place] [address] [id number] Lucía Fragoso Self - patient is the insured Medical (General) History Medical History History ICD Code broken bones Cholesterol hypertension measles mumps chicken pox diabetic Surgical History Surgery Date(Month/Year) breast biopsy cataract surgery 02/20/2018 cataract surgery 03/2018 Hospitalization History Reason Date(Month/Year) a fib december
--- OUTSIDE RECORDS SUMMARY | 2024-10-14 12:51 | XMS_ITS | Patient Health Record ---
Author Organization [facility] Address [address] [place] [address] Care Team Providers Care Dormitory Keeper Name Role Phone Po Shelia RASHID Primary Care Provider Mehdi Castle [phone] Reason For Referral No Information Plan Of Treatment No Information Insurance Providers Payer Name Payer Address Payer Phone Subscriber Number Group Number Insured Name Patient Relationship to Insured Coverage Start Date Coverage End Date MEDICARE OF [place] [address] [place] [address] [id number] IVAN HITCHCOCK Self - patient is the insured [employer] ATT[employer] CLAIMS [address] [place] [address] [id number] IVAN HITCHCOCK Self - patient is the insured
--- NOTE | 2024-10-14 13:03 | MHC.PC.OV ---
Vital Signs 10/14/24 13:05 Height 5 ft Weight 128 lb 2 oz BMI 25.0 BP 126/70 Blood Pressure Location Lt brachial Position Sitting Pulse 88 Pulse Source Pulse Oximeter Pulse Oximetry (%) 95 Oxygen Delivery Method Room Air Intake Visit Reasons: [facility] 10/01 UTI/Chemo induced neuropathy Test Development Engineer Required: No Accompanied by: Self / Same As Patient Allergies atorvastatin (From Lipitor) Allergy (Unknown, Verified 10/14/24 13:04) Unknown codeine (CODEINE) Allergy (Unknown, Verified 10/14/24 13:04) Unknown Iodinated Contrast Media Allergy (Unknown, Verified 10/14/24 13:04) MRI Dye- unknown morphine (MORPHINE) Allergy (Unknown, Verified 10/14/24 13:04) Unknown crab Allergy (Verified 10/14/24 13:04) Unknown Tobacco use date assessed: 10/14/24 Fall risk assessment: 1 Fall in past year Last assessed Fall Risk: 10/14/24 Dental Screening Dental Screen Date: 10/14/24 Did you have a dental visit in the last 12 months?: No Did you have a dental problem in the last 6 months where you did not have access to dental care?: No Was dental information given to patient?: No HPI HPI Comments History of Present Illness Details 79 Y/o Female patient who presents to the clinic today for HDF. She was admitted at [facility] on 09/20 - 10/01 for an evaluation due to weakness secondary to Urosepsis. S/P Endometrial Cancer with Multidrug resistatnt UTIs. She currently has Indwelling Mello Catheter in due to Urinary Retention. She see Urology - recently failed voiding trial. [facility] Medical History (Updated 10/14/24 @ 13:16 by Sierra Roach NP) Sepsis due to urinary tract infection CHF (congestive heart failure) Post-menopausal Left elbow fracture Coronary artery disease Hiatal hernia Cataracts, bilateral Vitamin D deficiency Obesity (BMI 30-39.9) Atrial fibrillation Obstructive sleep apnea Type 2 diabetes mellitus with hyperglycemia Type 2 diabetes mellitus with diabetic neuropathic arthropathy Hypercholesterolemia Hypertension Surgical History S/P MARC-BSO History of cataract surgery Family History Father CVD (cardiovascular disease) Myocardial infarction Mother No problems noted. Maternal Aunt Breast cancer Skin cancer Brother No problems noted. Sister No problems noted. Son No problems noted. Son No problems noted. Social History Housing: House Alcohol intake: never Patient Tobacco Use Status: Never used Tobacco Tobacco use type: Cigarette e-Cigarette/Vaping Use: Never Used Second Hand Smoke Exposure: No service: No Current occupational status: retired Cognitive needs: No Hearing needs: No Vision needs: Yes Questionnaire Thrive Questionnaire Date Thrive assessed: 10/14/24 RAKESH-7 AMB Questionnaire RAKESH-7 Date RAKESH - 7 assessed: 10/14/24 Source: Developed by Drs. Mehdi Bach, Paola Quan, Dyllan Palacio and colleagues, with an educational kim from [employer]. Review of Systems Const All systems reviewed & are unremarkable except as noted in HPI and below Physical exam (Primary Care) Vital Signs: Last Vital Signs Pulse 88 10/14/24 13:05 BP 126/70 10/14/24 13:05 Pulse Ox 95 10/14/24 13:05 Oxygen Delivery Method Room Air 10/14/24 13:05 BMI result Body Mass Index 25.0 Tobacco/Smoking Status: Tobacco use Status Tobacco use date assessed 10/14/24 10/14/24 13:11 Patient Tobacco Use Status Never used Tobacco 10/14/24 13:11 Tobacco use type Cigarette 10/14/24 13:11 e-Cigarette/Vaping Use Never Used 10/14/24 13:11 Thrive Assessment: Date of Thrive Assessment Date Thrive assessed 10/14/24 10/14/24 13:11 Const General: no acute distress; No comfortable Orientation/consciousness: patient oriented x3 Resp Effort & Inspection: normal respiratory effort Auscultation: clear to auscultation bilaterally Cardio Heart sounds: S1 normal heart sound present and S2 normal heart sound present Neuro General: patient oriented x3 Coding Level of Care Code Est Pt Level 4 (88606) Diagnoses Sepsis due to urinary tract infection A41.9; N39.0 Time Spent (min) 20 Assessment & Plan Assessment & Plan (1) Sepsis due to urinary tract infection: Code(s): A41.9 - Sepsis, unspecified organism; N39.0 - Urinary tract infection, site not specified Category: Medical Plan: Managed by Urology
[2024-10-14 13:05] VITALS: BP 126/70; PULSE 88; O2SAT 95; BMI 25.0
--- OUTSIDE RECORDS SUMMARY | 2024-11-30 20:00 | XMS_ITS | Clinical Summary ---
Author Organization Unknown Care Team Providers Care Cloth Stretcher Name Role Phone PATRIZIA RASHID, ARABELLA Unavailable Unavailable ZHANNA MAJOR, CARMENCITA Unavailable Unavailable Payers Payer Name Policy Type Policy Number Effective Date Expira tion Date MEDICARE - [place] - [place] [id number] Problems Condition Name Condition Details Condition Category Status Onset Date Resolution Date Last Treatment Date Treating Clinician Comments MALIGNANT NEOPLASM OF ENDOMETRIUM Active 09-20 00:00: 00 URINARY TRACT INFECTION, SITE NOT SPECIFIED Active 09-20 00:00: 00 Allergies, Adverse Reactions, Alerts Allergy Name Allergy Type Status Severity Reaction(s) Onset Date Inactive Date Treating Clinician Comments CODEINE Propensity to adverse reactions Active 2024-09 18:03:0 9 MORPHINE Propensity to adverse reactions Active 2024-09 18:03:1 8 Immunizations Ordered Immunization Name Filled Immunization Name Date Status Comments Refusal Reason COVID BOOSTER, COVID BOOSTER 2023-12-11 00:00:00 INFLUENZA, TIV (INACTIVATED) 2023-12-11 00:00:00 Vital Signs Vital Name Observation Time Observation Value Commen ts Temperature 2024-10-11 08:41:00.000 97.8 [degF] Temperature 2024-10-07 14:43:00.000 97.1 [degF] Temperature 2024-10-03 09:37:00.000 98.3 [degF] BMI (%) 2024-10-03 09:37:00.000 28 kg/m2 Height 2024-10-03 09:37:00.000 59 [in_us] Pulse 2024-10-11 08:41:00.000 98 /min Pulse 2024-10-07 14:43:00.000 98 /min Pulse 2024-10-03 09:37:00.000 100 /min O2 Saturation (%) 2024-10-11 08:41:00.000 96 % O2 Saturation (%) 2024-10-03 09:37:00.000 95 % Respirations 2024-10-11 08:41:00.000 19 /min Respirations 2024-10-07 14:43:00.000 16 /min Respirations 2024-10-03 09:37:00.000 18 /min Weight (lbs) 2024-10-03 09:37:00.000 139 [lb_av] Systolic Blood Pressure 2024-10-11 08:41:00.000 124 mm [Hg] Systolic Blood Pressure 2024-10-07 14:43:00.000 128 mm [Hg] Systolic Blood Pressure 2024-10-03 09:37:00.000 126 mm [Hg] Diastolic Blood Pressure 2024-10-11 08:41:00.000 76 mm [Hg] Diastolic Blood Pressure 2024-10-07 14:43:00.000 73 mm [Hg] Diastolic Blood Pressure 2024-10-03 09:37:00.000 78 mm [Hg] Plan of Treatment Planned Activity Planned Date Details Comments Future Scheduled Test SKILLED NU RSE TO EVALUATE PATIENT, IDENTIFY PRIMARY AND CO-MORBID CONDITIONS CODED PER CODING GUIDELINES, AND DEVELOP PATIENT SPECIFIC PLAN OF CARE THAT INCLUDES PATIENT GOAL FOR HOME HEALTH. [code = SKILLED NURSE TO EVALUATE PATIENT, IDENTIFY PRIMARY AND CO-MORBID CONDITIONS CODED PER CODING GUIDELINES, AND DEVELOP PATIENT SPECIFIC PLAN OF CARE THAT INCLUDES PATIENT GOAL FOR HOME HEALTH.] Future Scheduled Test SKILLED NU RSE TO REVIEW PATIENT MEDICATIONS (PRESCRIPTION/OTC). INSTRUCT PATIENT/CAREGIVER ON ALL MEDICATIONS INCLUDING PURPOSE, WHEN TO TAKE, IMPORTANCE OF MEDICATION ADHERENCE, MONITORING OF EFFECTIVENESS, ADVERSE DRUG REACTIONS, POSSIBLE SIDE EFFECTS, AND WHEN TO NOTIFY AGENCY OR PHYSICIAN/PROVIDER OF ANY CONCERNS. [code = SKILLED NURSE TO REVIEW PATIENT MEDICATIONS (PRESCRIPTION/OTC). INSTRUCT PATIENT/CAREGIVER ON ALL MEDICATIONS INCLUDING PURPOSE, WHEN TO TAKE, IMPORTANCE OF MEDICATION ADHERENCE, MONITORING OF EFFECTIVENESS, ADVERSE DRUG REACTIONS, POSSIBLE SIDE EFFECTS, AND WHEN TO NOTIFY AGENCY OR PHYSICIAN/PROVIDER OF ANY CONCERNS.] Future Scheduled Test PATIENT BOYER S A RISK OF HOSPITALIZATION AND ED USE. SKILLED NURSE TO ESTABLISH SUPPORT MEASURES TO MINIMIZE RISK OF HOSPITALIZATION AND ED USE, AND INSTRUCT PATIENT/CAREGIVER ON METHODS TO REDUCE AVOIDABLE HOSPITALIZATION AND ED USE. [code = PATIENT HAS A RISK OF HOSPITALIZATION AND ED USE. SKILLED NURSE TO ESTABLISH SUPPORT MEASURES TO MINIMIZE RISK OF HOSPITALIZATION AND ED USE, AND INSTRUCT PATIENT/CAREGIVER ON METHODS TO REDUCE AVOIDABLE HOSPITALIZATION AND ED USE.] Future Scheduled Test SKILLED NU RSE TO PROVIDE INSTRUCTION TO PATIENT/CAREGIVER RELATED TO DISCHARGE PLANNING. [code = SKILLED NURSE TO PROVIDE INSTRUCTION TO PATIENT/CAREGIVER RELATED TO DISCHARGE PLANNING.] Future Scheduled Test SKILLED NU RSE TO PERFORM ENVIRONMENTAL SAFETY RISK ASSESSMENT AND FALL RISK ASSESSMENT AND PROVIDE INSTRUCTION TO IMPLEMENT ENVIRONMENTAL SAFETY AND FALL PREVENTION STRATEGIES THROUGHOUT THE CERTIFICATION PERIOD. SKILLED NURSE WILL MAINTAIN SITUATIONAL AWARENESS AND WILL NOTIFY CLINICAL RN EMPLOYEE HEALTH AND PHYSICIAN/PROVIDER WITH ANY CHANGE IN CONDITION. [code = SKILLED NURSE TO PERFORM ENVIRONMENTAL SAFETY RISK ASSESSMENT AND FALL RISK ASSESSMENT AND PROVIDE INSTRUCTION TO IMPLEMENT ENVIRONMENTAL SAFETY AND FALL PREVENTION STRATEGIES THROUGHOUT THE CERTIFICATION PERIOD. SKILLED NURSE WILL MAINTAIN SITUATIONAL AWARENESS AND WILL NOTIFY CLINICAL RN EMPLOYEE HEALTH AND PHYSICIAN/PROVIDER WITH ANY CHANGE IN CONDITION.] Future Scheduled Test SKILLED NU RSE FOR OBSERVATION AND ASSESSMENT OF PATIENTS PAIN LEVEL AND EFFECTIVENESS OF PAIN MANAGEMENT REGIMEN. SKILLED NURSE TO INSTRUCT PATIENT/CAREGIVER REGARDING PHARMACOLOGIC AND NON-PHARMACOLOGIC PAIN CONTROL MEASURES. SKILLED NURSE TO REPORT TO PHYSICIAN IF PAIN LEVEL IS OUTSIDE OF ESTABLISHED PARAMETERS. [code = SKILLED NURSE FOR OBSERVATION AND ASSESSMENT OF PATIENTS PAIN LEVEL AND EFFECTIVENESS OF PAIN MANAGEMENT REGIMEN. SKILLED NURSE TO INSTRUCT PATIENT/CAREGIVER REGARDING PHARMACOLOGIC AND NON-PHARMACOLOGIC PAIN CONTROL MEASURES. SKILLED NURSE TO REPORT TO PHYSICIAN IF PAIN LEVEL IS OUTSIDE OF ESTABLISHED PARAMETERS.] Future Scheduled Test SKILLED NU RSE TO ASSESS PATIENT'S SKIN INTEGRITY AND INSTRUCT PATIENT/CAREGIVER ON MEASURES TO PREVENT PRESSURE ULCERS. [code = SKILLED NURSE TO ASSESS PATIENT'S SKIN INTEGRITY AND INSTRUCT PATIENT/CAREGIVER ON MEASURES TO PREVENT PRESSURE ULCERS.] Future Scheduled Test SKILLED NU RSE FOR O/A AND SKILLED TEACHING RELATED TO ALTERED SKIN INTEGRITY PUBIC METASTASIS LESIONS [code = SKILLED NURSE FOR O/A AND SKILLED TEACHING RELATED TO ALTERED SKIN INTEGRITY PUBIC METASTASIS LESIONS] Future Scheduled Test SKILLED NU RSE TO INSTRUCT PATIENT/CAREGIVER ON COPD TO INCLUDE TEACHING AND SELF-MANAGEMENT RELATED TO COPD DISEASE PROCESS, SIGNS AND SYMPTOMS, AND COMPLICATIONS. [code = SKILLED NURSE TO INSTRUCT PATIENT/CAREGIVER ON COPD TO INCLUDE TEACHING AND SELF-MANAGEMENT RELATED TO COPD DISEASE PROCESS, SIGNS AND SYMPTOMS, AND COMPLICATIONS.] Future Scheduled Test SKILLED NU RSE TO PROVIDE TEACHING ON SIGNS AND SYMPTOMS AND MANAGEMENT OF HYPERTENSION. [code = SKILLED NURSE TO PROVIDE TEACHING ON SIGNS AND SYMPTOMS AND MANAGEMENT OF HYPERTENSION.] Future Scheduled Test SKILLED NU RSE FOR O/A, TEACHING AND SELF-MANAGEMENT RELATED TO HEART FAILURE. INSTRUCT PATIENT/CAREGIVER ON SIGNS AND SYMPTOMS OF EXACERBATION TO REPORT AND IMPORTANCE OF OBTAINING AND RECORDING DAILY WEIGHT AND/OR MEASUREMENTS. SN OR TRAINED PATIENT/CAREGIVER TO OBTAIN WEIGHT DAILY AND WEIGHT GAIN OF 2 LBS OVERNIGHT OR 5 LBS IN 1 WEEK TO BE REPORTED TO PHYSICIAN/PROVIDER. IF UNABLE TO WEIGH PATIENT, SN OR TRAINED PATIENT/CAREGIVER TO OBTAIN MEASUREMENT OF L CALF IN CM DAILY AND REPORT AN INCREASE OF 2 CM TO PHYSICIAN/PROVIDER. [code = SKILLED NURSE FOR O/A, TEACHING AND SELF-MANAGEMENT RELATED TO HEART FAILURE. INSTRUCT PATIENT/CAREGIVER ON SIGNS AND SYMPTOMS OF EXACERBATION TO REPORT AND IMPORTANCE OF OBTAINING AND RECORDING DAILY WEIGHT AND/OR MEASUREMENTS. SN OR TRAINED PATIENT/CAREGIVER TO OBTAIN WEIGHT DAILY AND WEIGHT GAIN OF 2 LBS OVERNIGHT OR 5 LBS IN 1 WEEK TO BE REPORTED TO PHYSICIAN/PROVIDER. IF UNABLE TO WEIGH PATIENT, SN OR TRAINED PATIENT/CAREGIVER TO OBTAIN MEASUREMENT OF L CALF IN CM DAILY AND REPORT AN INCREASE OF 2 CM TO PHYSICIAN/PROVIDER.] Future Scheduled Test SKILLED NU RSE TO INSTRUCT PATIENT/CAREGIVER ON SIGNS AND SYMPTOMS, RISK FACTORS, COMPLICATIONS, AND MANAGEMENT OF ATRIAL FIBRILLATION. [code = SKILLED NURSE TO INSTRUCT PATIENT/CAREGIVER ON SIGNS AND SYMPTOMS, RISK FACTORS, COMPLICATIONS, AND MANAGEMENT OF ATRIAL FIBRILLATION.] Future Scheduled Test SKILLED NU RSE TO INSTRUCT PATIENT/CAREGIVER AND PERFORM CARE AND MANAGEMENT OF INDWELLING URINARY CATHETER. INDWELLING TRAN CATHETER INSERTION WITH 18 FR CATHETER WITH 10 ML BALLOON VIA STERILE TECHNIQUE, CHANGE Q4W AND PRN FOR LEAKING OR MALFUNCTIONING CATHETER. IRRIGATE URINARY CATHETER WITH 30-60CC NORMAL SALINE PRN BLOCKAGE/LEAKAGE, HEAVY SEDIMENT. 1 - 3 PRN PENITENTIARY VISITS FOR CATHETER CHANGE(S) AND/OR TROUBLESHOOTING. [code = SKILLED NURSE TO INSTRUCT PATIENT/CAREGIVER AND PERFORM CARE AND MANAGEMENT OF INDWELLING URINARY CATHETER. INDWELLING TRAN CATHETER INSERTION WITH 18 FR CATHETER WITH 10 ML BALLOON VIA STERILE TECHNIQUE, CHANGE Q4W AND PRN FOR LEAKING OR MALFUNCTIONING CATHETER. IRRIGATE URINARY CATHETER WITH 30-60CC NORMAL SALINE PRN BLOCKAGE/LEAKAGE, HEAVY SEDIMENT. 1 - 3 PRN PENITENTIARY VISITS FOR CATHETER CHANGE(S) AND/OR TROUBLESHOOTING.] Future Scheduled Test SKILLED NU RSE FOR O/A AND SKILLED TEACHING RELATED TO SIGNS AND SYMPTOMS AND MANAGEMENT OF ENDURANCE [code = SKILLED NURSE FOR O/A AND SKILLED TEACHING RELATED TO SIGNS AND SYMPTOMS AND MANAGEMENT OF ENDURANCE] Future Scheduled Test VIRTUAL SIT FREQUENCY: PRN VIRTUAL VISITS MAY BE PERFORMED UTILIZING TELECOMMUNICATIONS SYSTEM TO OPTIMIZE SKILLED SERVICES FURNISHED ON THE PLAN OF CARE. SKILLED NURSE TO ESTABLISH SUPPORT MEASURES TO MINIMIZE RISK OF REHOSPITALIZATION, AND INSTRUCT PATIENT/CAREGIVER ON METHODS TO REDUCE AVOIDABLE HOSPITALIZATION. [code = VIRTUAL VISIT FREQUENCY: PRN VIRTUAL VISITS MAY BE PERFORMED UTILIZING TELECOMMUNICATIONS SYSTEM TO OPTIMIZE SKILLED SERVICES FURNISHED ON THE PLAN OF CARE. SKILLED NURSE TO ESTABLISH SUPPORT MEASURES TO MINIMIZE RISK OF REHOSPITALIZATION, AND INSTRUCT PATIENT/CAREGIVER ON METHODS TO REDUCE AVOIDABLE HOSPITALIZATION.] Future Scheduled Test PHYSICAL T HERAPIST TO EVALUATE PATIENT FOR MUSCLE WEAKNESS [code = PHYSICAL THERAPIST TO EVALUATE PATIENT FOR MUSCLE WEAKNESS] Future Scheduled Test SKILLED NU RSE FOR O/A AND TEACHING RELATED TO ENDOMETRIAL CANCER INCLUDING SIGNS AND SYMPTOMS OF DISEASE PROGRESSION, TREATMENT, AND MANAGEMENT OF POTENTIAL SIDE EFFECTS. [code = SKILLED NURSE FOR O/A AND TEACHING RELATED TO ENDOMETRIAL CANCER INCLUDING SIGNS AND SYMPTOMS OF DISEASE PROGRESSION, TREATMENT, AND MANAGEMENT OF POTENTIAL SIDE EFFECTS.] Goal Patient Goal - B E BACK TO MY PRIOR FUNCTION Goal Provider Goal - A PLAN OF CARE WILL BE ESTABLISHED THAT MEETS PATIENT'S PENITENTIARY NEEDS AND INCLUDES PATIENT GOAL FOR HOME HEALTH. Goal Provider Goal - PATIENT/CAREGIVER WILL VERBALIZE UNDERSTANDING OF EDUCATION PROVIDED ON MEDICATIONS BY THE END OF THE CERTIFICATION PERIOD. Goal Provider Goal - PATIENT WILL HAVE SUPPORT MEASURES ESTABLISHED TO PREVENT HOSPITALIZATION AND ED USE AND PATIENT/CAREGIVER WILL VERBALIZE/DEMONSTRATE METHODS TO REDUCE AVOIDABLE HOSPITALIZATION AND ED USE BY END OF EPISODE. Goal Provider Goal - PATIENT/CAREGIVER WILL VERBALIZE UNDERSTANDING OF DISCHARGE PLANNING INSTRUCTIONS BY DATE OF DISCHARGE. Goal Provider Goal - PATIENT/CAREGIVER WILL VERBALIZE/DEMONSTRATE EFFECTIVE ENVIRONMENTAL SAFETY AND FALL PREVENTION STRATEGIES, WILL REMAIN SAFE IN THE COMMUNITY, AND WILL BE FREE OF DANGER TO SELF AND OTHERS THROUGHOUT THE CERTIFICATION PERIOD. Goal Provider Goal - PATIENT/CAREGIVER WILL DEMONSTRATE UNDERSTANDING OF PHARMACOLOGIC AND NONPHARMACOLOGIC PAIN CONTROL MEASURES AND PATIENT WILL HAVE IMPROVEMENT IN PAIN INTERFERING WITH ACTIVITY EVIDENCED BY PAIN AT A LEVEL THAT IS ACCEPTABLE TO THE PATIENT AND PAIN LEVEL WITHIN ESTABLISHED PARAMETERS BY END OF CERTIFICATION PERIOD. Goal Provider Goal - PATIENT/CAREGIVER WILL VERBALIZE UNDERSTANDING OF PRESSURE ULCER PREVENTION BY END OF THE EPISODE. Goal Provider Goal - PATIENT/CAREGIVER WILL VERBALIZE/DEMONSTRATE UNDERSTANDING OF TEACHING RELATED TO ALTERED SKIN INTEGRITY PUBIC MATASTASIS LESIONS BY END OF CERTIFICATION PERIOD. Goal Provider Goal - PATIENT/CAREGIVER WILL VERBALIZE/DEMONSTRATE KNOWLEDGE AND MANAGEMENT OF COPD BY END OF EPISODE. Goal Provider Goal - PATIENT/CAREGIVER WILL VERBALIZE SIGNS AND SYMPTOMS OF HYPERTENSION AND WILL BE ABLE TO DEMONSTRATE ABILITY TO MANAGE EXACERBATION BY END OF THE EPISODE. Goal Provider Goal - PATIENT/CAREGIVER WILL VERBALIZE/DEMONSTRATE KNOWLEDGE AND MANAGEMENT OF HEART FAILURE DISEASE PROCESS BY END OF EPISODE. Goal Provider Goal - PATIENT/CAREGIVER WILL VERBALIZE UNDERSTANDING OF SIGNS AND SYMPTOMS, COMPLICATIONS, AND MANAGEMENT OF ATRIAL FIBRILLATION THROUGHOUT THE CERTIFICATION PERIOD. Goal Provider Goal - PATIENT WILL VERBALIZE TOLERANCE OF CATHETER CHANGE AND KNOWLEDGE OF REQUIRED CARE TO MANAGE INDWELLING URINARY CATHETER WITHOUT COMPLICATIONS BY THE END OF THE CERTIFICATION PERIOD. Goal Provider Goal - PATIENT/CAREGIVER WILL VERBALIZE UNDERSTANDING OF ENDURANCE MUSCULOSKELETAL DISEASE INCLUDING SIGNS AND SYMPTOMS, MANAGEMENT, AND PRESCRIBED TREATMENT REGIMEN BY END OF EPISODE. Goal Provider Goal - PATIENT/CAREGIVER WILL UTILIZE VIRTUAL VISITS TO ACHIEVE GOALS OUTLINED ON THE PLAN OF CARE. PATIENT WILL HAVE SUPPORT MEASURES ESTABLISHED TO PREVENT HOSPITALIZATION AND PATIENT/CAREGIVER WILL VERBALIZE/DEMONSTRATE METHODS TO REDUCE AVOIDABLE HOSPITALIZATION THROUGHOUT THE CERTIFICATION PERIOD. Goal Provider Goal - A PHYSICAL THERAPY EVALUATION TO BE COMPLETED WITH RECOMMENDATIONS AND/OR WRITTEN PLAN OF TREATMENT ESTABLISHED FOR PHYSICIANS SIGNATURE. Goal Provider Goal - PATIENT/CAREGIVER WILL VERBALIZE/DEMONSTRATE MANAGEMENT OF ENDOMETRIAL CANCER/NEOPLASM DISEASE AND THE SIDE EFFECTS OF TREATMENTS DURING THIS EPISODE. Progress Notes Progress Notes <paragraph>[Visit Date: 2024 by CARMENCITA CHAO RN]:</paragraph><paragraph>SNV ABNORMAL VITALS: WNL FALLS: N PHYSICAL ASSESSMENT FINDINGS: PT AWAKE AND ALERT VS WNL AFEBRILE LUNGS DIM THROUGHOUT SPEAKING IN FULL SENTENCES NAD NOTED ABD SNT POS BS DENIES PROBLEMS WITH BOWEL BM YESTERDAY. FC PATENT APPT TOMORROW FOR VOIDING TRIAL. PT WITH DISCOMFORT DUE TO CATH TUBE TOUCHING LESIONS. FREQ POSITIONING TO ATTEMPT TO ALLEVIATE DISCOMFORT. SKIN INTEG WASH PAT DRY LESIONS. PT INDEPENDENT WITH MORE SUPPLIES ORDERED. MEDICATION CHANGES: NO CHANGES HANDS ON CARE: ASSESSMENT TEACHING INFECTION CONTROL FREQUENT HAND WASHING CATH CARE. PATIENT/CAREGIVER TEACH BACK:VERBALIZED UNDERSTANDING NEXT APPOINTMENT: ONC TOMORROW NEW ORDERS: N INSTRUCTED PATIENT AND CAREGIVER TO CALL [facility] WITH ANY QUESTIONS OR CHANGES IN CONDITION</paragraph> Encounters Start Date/Time End Date/Time Encounter Type Admission Type Attending [facility] Care Facility Care Department Encounter ID Discharge Date Discharge Status Discharge Condition Discharge Reason Percent Goals Met 2024-10-03 00:00:00 2024-12-01 00:00:00 Outpatient NEW ADMISSION CARMENCITA CHAO [facility] [id number] 36.36
== END 2024-10-14 16:15 | disposition home or self-care (01) ==
LOC: HO.HMCH 12:48
PROVIDERS: PCP Internal Medicine; Visit Provider Nurse Practitioner Family
DX: A41.9 Sepsis, unspecified organism (principal); N39.0 Urinary tract infection, site not specified

== ENCOUNTER → 2024-10-14 12:48 | Outpatient (BNVA) | payer MEDICARE, SELFPAY | PROVIDERS: PCP Internal Medicine; Visit Provider Nurse Practitioner Family | DX: A41.9 Sepsis, unspecified organism (principal); N39.0 Urinary tract infection, site not specified | CPT/HCPCS: 99212 ==

== ENCOUNTER → 2024-11-04 23:59 | Outpatient (BNV) | payer MEDICARE, SELFPAY | PROVIDERS: PCP Internal Medicine; Visit Provider Internal Medicine | DX: I48.91 Unspecified atrial fibrillation (principal); I11.0 Hypertensive heart disease with heart failure; I50.30 Unspecified diastolic (congestive) heart failure | CPT/HCPCS: G0180 ==

== ENCOUNTER → 2024-12-02 23:59 | Outpatient (BNV) | payer MEDICARE, SELFPAY | PROVIDERS: PCP Internal Medicine; Visit Provider Internal Medicine | DX: C54.1 Malignant neoplasm of endometrium (principal); I48.91 Unspecified atrial fibrillation; I11.0 Hypertensive heart disease with heart failure; I50.30 Unspecified diastolic (congestive) heart failure | CPT/HCPCS: G0179 ==